=== PATIENT | male | born 1950 | race Caucasian/White ===

== ENCOUNTER 2020-12-04 12:34 | Outpatient (CLI) | payer MEDICARE, SELFPAY ==
--- NOTE | 2020-12-04 13:17 | XRR_ITS ---
PROCEDURE INFORMATION: Exam: XR Bilateral Hips Exam date and time: 12/04/2020 1:17 PM Age: 70 years old Clinical indication: Hip pain; Bilateral; Patient HX: Hips for a couple months; PT states there is more pain when standing TECHNIQUE: Imaging protocol: XR bilateral hips. Views: 2 views of hips with pelvis when performed. COMPARISON: CT abdomen wo con [id number] 09/12/2017 10:13 AM FINDINGS: Bones/joints: No fractures. Negative for osteonecrosis. Unremarkable joint alignment. No significant joint space loss. No osteolytic lesion. Mild sclerosis of the acetabular roof. Soft tissues: Unremarkable. XR/XR hip BI 3-4V wo/w pel [id number] IMPRESSION: 1. 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 2. No acute abnormalities.
--- NOTE | 2020-12-04 13:17 | XRR_ITS ---
PROCEDURE INFORMATION: Exam: XR Lumbosacral Spine Exam date and time: 12/04/2020 1:17 PM Age: 70 years old Clinical indication: Low back pain; Patient HX: Lower back since 83'; Additional info: Lumbar sacral spondylarthritis TECHNIQUE: Imaging protocol: XR of the lumbosacral spine. Views: 2 or 3 views. COMPARISON: CR Lumbar Spine 2-3 views* [id number] 10/29/2016 11:35 AM FINDINGS: Bones/joints: Negative for acute fracture. No changes in vertebral body height from prior. No traumatic malalignment.The lumbar spine demonstrates marked discogenic and apophyseal joint degenerative changes at multiple levels. Slight rightward convex lower lumbar spine curvature stable from comparison. Soft tissues: Unremarkable. XR/XR lumbar spine 2-3V* [id number] IMPRESSION: 1. No acute abnormality. 2. No change from comparison. 3. Severe diffuse spondyloarthropathy.
--- NOTE | 2020-12-04 13:17 | XRR_ITS ---
PROCEDURE INFORMATION: Exam: XR Left Ankle Exam date and time: 12/04/2020 1:17 PM Age: 70 years old Clinical indication: Patient HX: Chronic pain in bilateral ankles for 7 years; Additional info: Acute ankle pain TECHNIQUE: Imaging protocol: XR Left ankle. Views: 3 or more views. COMPARISON: CR Knee 3 views, LEFT* [id number] 08/01/2017 1:53 PM FINDINGS: Bones/joints: No fractures. No joint space malalignment. No lytic bone lesion. Large osseous heel spur. No significant arthritis. Soft tissues: Diffuse soft tissue swelling. XR/XR ankle LT min 3V* [id number] IMPRESSION: No acute osseous abnormality.
--- NOTE | 2020-12-04 13:17 | XRR_ITS ---
PROCEDURE INFORMATION: Exam: XR Right Ankle Exam date and time: 12/04/2020 1:17 PM Age: 70 years old Clinical indication: Pain; Ankle; Bilateral; Additional info: Acute ankle pain TECHNIQUE: Imaging protocol: XR Right ankle. Views: 3 or more views. COMPARISON: No relevant prior studies available. FINDINGS: Bones/joints: No fractures. No joint space malalignment. Moderate sized osseous heel spur. No lytic bone lesion. No significant arthritis. Soft tissues: Diffuse soft tissue swelling. XR/XR ankle RT min 3V* [id number] IMPRESSION: No acute osseous abnormality.
== END 2020-12-04 12:35 | disposition home or self-care (01) ==
PROVIDERS: PCP Family Medicine; Visit Provider Family Medicine
DX: M47.817 Spondylosis without myelopathy or radiculopathy, lumbosacral region (principal); M25.572 Pain in left ankle and joints of left foot; M47.816 Spondylosis without myelopathy or radiculopathy, lumbar region; M25.551 Pain in right hip; M25.552 Pain in left hip
CPT/HCPCS: 72100; 73521; 73522; 73610

== ENCOUNTER → 2021-01-24 13:40 | Outpatient (BNVA) | payer MEDICARE, SELFPAY | PROVIDERS: PCP Family Medicine; Referring Provider Family Medicine; Visit Provider Podiatrist Foot & Ankle Surgery | DX: M19.072 Primary osteoarthritis, left ankle and foot (principal); M79.672 Pain in left foot | CPT/HCPCS: 73630 ==

== ENCOUNTER → 2022-05-28 09:49 | Outpatient (BNVA) | payer MEDICARE, SELFPAY | PROVIDERS: PCP Family Medicine; Visit Provider Internal Medicine Cardiovascular Disease | DX: I48.91 Unspecified atrial fibrillation (principal); I10 Essential (primary) hypertension; Z87.891 Personal history of nicotine dependence; Z79.01 Long term (current) use of anticoagulants | CPT/HCPCS: 93005; 99214; Q3014 ==

== ENCOUNTER 2022-10-16 20:50 | Inpatient (IN) | payer MEDICARE, MEDICAID, SELFPAY ==
[2022-10-16 21:08] VITALS: BP 118/52; PULSE 98; RESP 18; TEMP 36.7; O2SAT 89; BMI 44.6
[2022-10-16 21:13] VITALS: BP 182/67; RESP 18; O2SAT 90
--- NOTE | 2022-10-16 21:29 | CTR_ITS ---
PROCEDURE INFORMATION: Exam: CT Head Without Contrast Exam date and time: 10/16/2022 9:50 PM Age: 72 years old Clinical indication: Injury or trauma; Blunt trauma (contusions or hematomas); Patient HX: Fall with loc. Patient unsure if he struck head. ; Additional info: Fall with positive loss of consciousness TECHNIQUE: Imaging protocol: Computed tomography of the head without contrast. Radiation optimization: All CT scans at this facility use at least one of these dose optimization techniques: automated exposure control; mA and/or kV adjustment per patient size (includes targeted exams where dose is matched to clinical indication); or iterative reconstruction. REPORTING DATA: Count of CT and Cardiac NM exams in prior 12 months: This patient has received 0 known CTs and 0 known cardiac nuclear medicine studies in the 12 months prior to the current study. COMPARISON: No relevant prior studies available. RADIATION DOSE METRICS: Total DLP (mGy-cm): 1328.93 FINDINGS: Brain: There is moderate cortical atrophy. Low-density changes in the white matter are consistent with nonspecific small vessel chronic ischemic change. There is no intracranial mass, hemorrhage or edema. There is a small lipoma in the right side falx Cerebral ventricles: No ventriculomegaly. Paranasal sinuses: Visualized sinuses are unremarkable. No fluid levels. Mastoid air cells: Visualized mastoid air cells are well aerated. Bones/joints: Unremarkable. No acute fracture. Soft tissues: Unremarkable. CT/CT head wo con* [id number] IMPRESSION: No acute intracranial finding
--- NOTE | 2022-10-16 21:29 | CTR_ITS ---
PROCEDURE INFORMATION: Exam: CT Cervical Spine Without Contrast Exam date and time: 10/16/2022 9:52 PM Age: 72 years old Clinical indication: Injury or trauma; Blunt trauma; Prior surgery; Surgery date: 6+ months; Surgery type: Cervical fusion; Patient HX: C/O neck pain post fall at home this evening. ; Additional info: Neck pain after fall with loc TECHNIQUE: Imaging protocol: Computed tomography of the cervical spine without contrast. Radiation optimization: All CT scans at this facility use at least one of these dose optimization techniques: automated exposure control; mA and/or kV adjustment per patient size (includes targeted exams where dose is matched to clinical indication); or iterative reconstruction. REPORTING DATA: Count of CT and Cardiac NM exams in prior 12 months: This patient has received 0 known CTs and 0 known cardiac nuclear medicine studies in the 12 months prior to the current study. COMPARISON: 1. CT head wo con* [id number] 10/16/2022 9:[address] Cervical Spine wo* [id number] 06/30/2014 5:21 PM RADIATION DOSE METRICS: Total DLP (mGy-cm): 449.77 FINDINGS: Bones/joints: There is anterior spinal fusion C4 through C6 with metallic plate and screws into the vertebral bodies which appears intact and well healed. There is narrowing of the C3-C4 and C6-C7 disc spaces with small anterior and posterior osteophytes. No acute fracture is identified. There are degenerative changes in facet joints bilaterally more on the left than on the right. Lungs: Lung apices are normal. Soft tissues: Prevertebral soft tissues are unremarkable. CT/CT cervical spin wo con* [id number] IMPRESSION: 1. Degenerative and postsurgical changes in the cervical spine stable compared with 06/30/2014. 2. No acute fracture.
--- NOTE | 2022-10-16 21:32 | ED_ITS ---
HPI - Fall General: Chief Complaint: Fall Stated Complaint: FALL Time Seen by Provider: 10/16/22 21:09 History of Present Illness: Patient is a 72-year-old male comes to the ED via EMS after fall. Patient has a history of hypertension, hyperlipidemia, BPH, A-fib, anemia, COPD and is not on any oxygen at home. Fall occurred at home and patient is unsure of details of fall. Patient lives at home alone. He is not sure if fall occurred yesterday or earlier today. All he remembers is waking up on the floor. Patient has no idea how long he was laying on the ground unconscious and says it could been anywhere from a few minutes to up to 24 hours. He does not know any details on why he fell, but does note that he felt very brief episode of chest pain a day or 2 ago. Denies any current chest pain. After fall patient was unable to get up and he crawled to her phone and then was able to call for help. After fall he is complaining of bilateral hip pain, low back pain, right rib pain and neck pain. Most of his pain is in his hips and low back and he rates the pain curren tly an 8 out of 10. Denies any numbness tingling or weakness to 1 side of his body or face. Vision change since fall described as fuzzy halo around lights. Associated symptoms-after fall: Reports chest pain (Episode of chest pain 2 days ago) and neck pain; Denies abdominal pain, headache(s) or hematuria Review of Systems Const: Denies: fever(s), chills or fatigue Eyes: Denies: change in vision or eye discomfort ENMT: Denies: throat pain, odynophagia, nasal discharge or nasal congestion Card: Reports: chest pain (Episode of chest pain 2 days ago) and syncope; Denies: palpitations, edema, swelling of feet/ankles, dyspnea on exertion or orthopnea Resp: Denies: dyspnea, productive cough or non-productive cough GI: Denies: abdominal pain, nausea, vomiting, diarrhea, constipation or hematochezia : Denies: flank pain, difficulty urinating, dysuria or hematuria Musc: Reports: neck pain, back pain (Low back pain), extremity pain (Bilateral hip pain) and other (Right rib pain); Denies: extremity swelling Skin/Breast: Denies: rash or new lesions Neuro: Denies: headache(s), numbness in extremities or weakness in extremities PFSH ED PFSH: Medical History Atrial fibrillation CAD (coronary artery disease) Diabetes mellitus History of SC (myocardial infarction) History of TIA (transient ischemic attack) HTN (hypertension) Hypercholesterolemia Surgical History S/P PTCA (percutaneous transluminal coronary angioplasty) Status post left knee replacement Family History Father Stroke Diabetes Hypertension Mother Stroke Hypertension Brother Diabetes Hypertension Sister Diabetes Chronic kidney disease (CKD) Hypertension Social History Smoking and tobacco status: former smoker Physical Exam Const: COMMON NORMALS: patient oriented x3 and alert HENMT: COMMON NORMALS: normocephalic HEAD & SCALP: normocephalic MOUTH: Normal oral and palatal mucosa present THROAT: posterior oropharynx normal and uvula midline Eye: COMMON NORMALS: Equal, round and reactive pupils present and EOMs intact bilaterally PUPIL: Yes Equal, round and reactive pupils present Neck/C-Spine: COMMON NORMALS: supple GENERAL: Yes normal visual inspection CERVICAL SPINE: Yes cervical ROM normal, Yes Cervical spine tenderness C6 and C7 and Yes Paracervical muscle tenderness bilateral Resp: COMMON NORMALS: normal respiratory effort, No retractions, No use of accessory muscles and clear to auscultation bilaterally AUSCULTATION: clear to auscultation bilaterally Cardio: COMMON NORMALS: regular rate, regular rhythm, S1 normal heart sound present, S2 normal heart sound present, No gallops present (Cardio), No clicks present (Cardio), No murmurs present (Cardio) and Peripheral pulses 2+ throughout RATE: regular rate RHYTHM: regular rhythm HEART SOUNDS: S1 normal heart sound present and S2 normal heart sound present PERIPHERAL PULSES: Peripheral pulses 2+ throughout GI: COMMON NORMALS: Normal to inspection, nondistended, normoactive bowel sounds present, Soft to palpation, non-tender and no masses PALPATION: Yes Soft to palpation : COMMON NORMALS: Yes no CVA tenderness BLADDER/KIDNEY EXAM: Yes no CVA tenderness Back/Pelvis: COMMON NORMALS: no CVA tenderness LUMBAR SPINE/LOWER BACK: Yes pain with ROM and Yes paraspinal muscle tenderness Lumbar paraspinal muscle tenderness: bilateral Extremity: COMMON NORMALS: normal to inspection Neuro: COMMON NORMALS: patient oriented x3, CN's II-XII intact bilaterally and moves all extremities SENSORIUM/ORIENTATION: Yes alert SPEECH: speech normal GAIT: Yes Unable to assess gait Skin: GENERAL SKIN EXAM: dry skin Course Reevaluation(s): Reevaluation #1: I went in to check on patient and discussed some of the imaging and lab report findings. I told him about his creatinine level being elevated above 5 and asked him if he has any history of CKD. Patient did state that he has CKD but is not on dialysis. Time: 23:45 Vital Signs: Vital signs: Vital Signs Temperature 98.1 F 10/16/22 21:08 Pulse Rate 81 10/17/22 01:41 Respiratory Rate 21 H 10/17/22 01:41 Blood Pressure 117/80 10/17/22 01:41 Pulse Oximetry 95 10/17/22 01:41 Oxygen Delivery Me thod Nasal Cannula 10/17/22 00:30 Oxygen Flow Rate 3 10/16/22 22:43 MDM - Fall Medical Decision Making Patient is a 72-year-old male comes to the ED via EMS after fall. Patient has a history of hypertension, hyperlipidemia, BPH, A-fib, anemia, CKD, COPD and is not on any oxygen at home. Fall occurred at home and patient is unsure of details of fall. Patient lives at home alone. He is not sure if fall occurred yesterday or earlier today. All he remembers is waking up on the floor. Patient has no idea how long he was laying on the ground unconscious and says it could been anywhere from a few minutes to up to 24 hours. He does not know any details on why he fell, but does note that he felt very brief episode of chest pain a day or 2 ago. Denies any current chest pain. Patient's O2 was in the up per 80s at triage and the rest of vitals are stable. He was put on 3 L of oxygen via nasal cannula and his O2 sat went up into the low to mid 90s. Patient's neuro exam showed no deficits. Rest of exam was benign. CBC unremarkable. Potassium 6.1 and creatinine was 5.7. UA was unremarkable. Tro ponins negative. EKG showed A-fib but no ST segment elevation or depression seen and no T wave changes seen due to hyperkalemia BNP was 2864 and CK was 355. CT of head and CT of cervical spine showed no acute findings. CT of chest abdomen pelvis showed no acute findings as well. I discussed patient case with Dr. Wyatt and he agreed patient needs to be admitted. I contacted the hospitalist Dr. Crain and patient will be admitted to [facility] and nephrology was contacted and given a heads up that they will need to be consulted and managing patient care while in hospital. Lab Data I reviewed the patient's lab results. 10/16/22 21:41 10/16/22 21:41 Radiology Impressions Cervical Spine CT 10/16/22 21:29 IMPRESSION: 1. Degenerative and postsurgical changes in the cervical spine stable compared with 06/30/2014. 2. No acute fracture. Head CT 10/16/22 21:29 IMPRESSION: No acute intracranial finding Chest/Abdomen/Pelvis CT 10/16/22 21:42 IMPRESSION: 1. Mild emphysema 2. No acute findings in the chest 3. Old granulomatous disease 4. 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 No acute findings in the abdomen or pelvis. 2. Bilateral nephrolithiasis 3. Hepatic cysts. Laboratory Results WBC 6.1 10^3/uL (4.0-10.0) 10/16/22 21:41 RBC 3.42 10^6/uL (4.1-5.3) L 10/16/22 21:41 Hgb 11.3 g/dL (11.7-16.6) L 10/16/22 21:41 Hct 36.9 % (42.0-52.0) L 10/16/22 21:41 MCV 107.9 fl (80-94) H 10/16/22 21:41 MCH 33.0 pg (28.0-34.0) 10/16/22 21:41 MCHC 30.6 g/dL (30.0-36.0) 10/16/22 21:41 RDW 15.9 % (12.1-15.1) H 10/16/22 21:41 Plt Count 110 10^3/cmm (130-400) L 10/16/22 21:41 MPV 10.8 fL (7.4-10.4) H 10/16/22 21:41 Neut % (Auto) 79.5 % 10/16/22 21:41 Lymph % (Auto) 8.7 % 10/16/22 21:41 [place] % (Auto) 9.7 % 10/16/22 21:41 Eos % (Auto) 1.3 % 10/16/22 21:41 Baso % (Auto) 0.3 % 10/16/22 21:41 Neut # (Auto) 4.85 10^3/uL (1.8-7.7) 10/16/22 21:41 Lymph # (Auto) 0.5 10^3/uL (0.8-4.8) L 10/16/22 21:41 [place] # (Auto) 0.6 10^3/uL (0.2-0.9) 10/16/22 21:41 Eos # (Auto) 0.1 10^3/uL (0.0-0.8) 10/16/22 21:41 Baso # (Auto) 0.0 10^3/uL (0.0-0.1) 10/16/22 21:41 Nucleated RBC % (auto) 0 % 10/16/22 21:41 Nucleated RBCs # 0.0 /100WBC 10/16/22 21:41 Sodium 143 mmol/L (136-145) 10/16/22 21:41 Potassium 6.1 mmol/L (3.5-5.1) H 10/16/22 21:41 Chloride 115 mmol/L (98-107) H 10/16/22 21:41 Carbon Dioxide 17 mmol/L (22-29) L 10/16/22 21:41 Anion Gap 17.1 (5-19) 10/16/22 21:41 BUN 51 mg/dL (8-23) H 10/16/22 21:41 Creatinine 5.7 mg/dL (0.7-1.2) H* 10/16/22 21:41 GFR Calculation Not Reportable 10/16/22 21:41 Glucose 73 mg/dL (65-115) 10/16/22 21:41 POC Glucose 82 mg/dL (70-110) 10/16/22 22:56 Calculated Osmolality 308 mOsm/kg (285-295) H 10/16/22 21:41 Lactic Acid 0.7 mmol/L (0.5-2.2) 10/16/22 21:41 Calcium 9.1 mg/dL (8.5-10.5) 10/16/22 21:41 Total Bilirubin 0.7 mg/dL (0.15-1.2) 10/16/22 21:41 AST 16 U/L (0-40) 10/16/22 21:41 ALT < 5 U/L (0-41) 10/16/22 21:41 Alkaline Phosphatase 85 U/L (40-130) 10/16/22 21:41 Creatine Kinase 355 U/L (39-308) H* 10/16/22 21:41 CK-MB (CK-2) 4.2 ng/mL (0-10.4) 10/16/22 21:41 CK-MB (CK-2) Rel Index % (0.0-5.3) 10/16/22 21:41 Troponin T Baseline 23 ng/L (0-15) H 10/16/22 21:41 Troponin T 120 Minute 21.11 ng/L (0-15) H 10/16/22 23:17 Delta Troponin T -1.89 ABS# (0-10) L 10/16/22 23:17 NT-Pro-B Natriuret Pep 2864 pg/mL (0-125) H 10/16/22 21:41 Total Protein 6.5 g/dL (6.6-8.7) L 10/16/22 21:41 Albumin 3.7 g/dL (3.5-5.2) 10/16/22 21:41 Globulin 2.8 g/dL (1.3-4.6) 10/16/22 21:41 Urine Color Yellow (Yellow) 10/16/22 21:45 Urine Appearance Clear (CLEAR) 10/16/22 21:45 Urine pH 5 (5-7) 10/16/22 21:45 Ur Specific [place] 1.015 (1.005-1.030) 10/16/22 21:45 Urine Protein Trace (Negative) 10/16/22 21:45 Urine Glucose (UA) Norm (Normal) 10/16/22 21:45 Urine Ketones Negative (Negative) 10/16/22 21:45 Urine Blood 3+ (Negative) H 10/16/22 21:45 Urine Nitrate Negative (Negative) 10/16/22 21:45 Urine Bilirubin Neg (Negative) 10/16/22 21:45 Urine Urobilinogen Norm mg/dL (Negative) 10/16/22 21:45 Ur Leukocyte Esterase Negative (Negative) 10/16/22 21:45 Urine RBC 0-4 /hpf (0-2) H 10/16/22 21:45 Urine WBC 0-4 /hpf (0-5) H 10/16/22 21:45 Ur Squamous Epith Cells 0-4 /hpf (0-5) H 10/16/22 21:45 Amorphous Sediment Not Reportable 10/16/22 21:45 Urine Bacteria Trace /hpf (NONE) 10/16/22 21:45 Hyaline Casts 0-4 /lpf H 10/16/22 21:45 EKG Data EKG 1: EKG interpretation date: 10/16/22 Interpretation: A-fib with rate controlled, 92 bpm, no ST segment elevation or depression seen. No EKG changes seen to T waves due to hyperkalemia Discharge Plan Discharge Patient Disposition: Admitted As Inpatient Admit Provider: Sheyla Crain Clinical Impression: Hyperkalemia, Syncope, JOHN (acute kidney injury), CHF (congestive heart failure) Condition: Stable Coding Level of Care Code ED Link Trainer Teacher for Nicole Golden
--- NOTE | 2022-10-16 21:34 | ECG_ITS ---
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 Measurements Intervals [place] Rate: 92 P: 0 TX: 0 QRS: 49 QRSD: 100 T: 30 QT: 332 QTc: 412 Interpretive Statements ATRIAL FIBRILLATION LOW QRS VOLTAGE IN EXTREMITY LEADS [QRS DEFLECTION < 0.5 mV IN LIMB LEADS] PATTERN CONSISTENT WITH PULMONARY DISEASE Compared to ECG 01/12/2015 15:41:32 Low QRS voltage now present Sinus rhythm no longer present Electronically Signed On 10-16-2022 22:26:06 CDT by Kenia Salguero M.D. [id number]
[2022-10-16 21:40] VITALS: RESP 20
[2022-10-16] MEDS: ondansetron 2 mg/ML SDV 2 mL 4 MG IVP (21:40)
[2022-10-16] MEDS: morphine 4 mg/mL SDV 1 mL IVP (21:40)
--- NOTE | 2022-10-16 21:42 | CTR_ITS ---
PROCEDURE INFORMATION: Exam: CT Chest Without Contrast; Diagnostic Exam date and time: 10/16/2022 10:37 PM Age: 72 years old Clinical indication: Injury or trauma; Generalized; Blunt trauma (contusions or hematomas); Prior surgery; Surgery date: 6+ months; Surgery type: Cervical fusion. Coronary angioplasty; Patient HX: Fall at home with +loc. C/O left rib pain with SOB. Lower back and bilateral hip pain. TECHNIQUE: Imaging protocol: Diagnostic computed tomography of the chest without contrast. Radiation optimization: All CT scans at this facility use at least one of these dose optimization techniques: automated exposure control; mA and/or kV adjustment per patient size (includes targeted exams where dose is matched to clinical indication); or iterative reconstruction. REPORTING DATA: Count of CT and Cardiac NM exams in prior 12 months: This patient has received 0 known CTs and 0 known cardiac nuclear medicine studies in the 12 months prior to the current study. COMPARISON: CT chest wo con [id number] 08/01/2017 1:31 PM RADIATION DOSE METRICS: Total DLP (mGy-cm): 1279.08 FINDINGS: Lungs: There is mild centrilobular emphysema and also paraseptal emphysema mostly at the lung bases posteriorly. No acute infiltrate is identified. There are calcified granulomas in both lungs. Pleural spaces: Unremarkable. No pneumothorax. No pleural effusion. Heart: There is incidental finding of a persistent left superior vena cava which appears to be draining into the left atrium. Heart is within normal limits of size. Coronary arteries: There is no evidence of atherosclerotic coronary artery calcifications. Mediastinal space: There is no evidence of mediastinal fluid, masses, or gas. Lymph nodes: There is no evidence of lymphadenopathy. There are small paratracheal lymph nodes. Vasculature: There is atherosclerotic calcification of the descending thoracic aorta. There is no thoracic aortic aneurysm. Bones/joints: The thoracic spine demonstrates moderate degenerative changes at multiple levels. No acute fracture is identified Soft tissues: Unremarkable. COMMENTS: In the absence of a history or active diagnosis of lung cancer, it is recommended that this patient with emphysema be evaluated for enrollment in a low dose CT lung cancer screening program. PROCEDURE INFORMATION: Exam: CT Abdomen And Pelvis Without Contrast Exam date and time: 10/16/2022 10:37 PM Age: 72 years old Clinical indication: Injury or trauma; Generalized; Blunt trauma (contusions or hematomas); Prior surgery; Surgery date: 6+ months; Surgery type: Cervical fusion. Coronary angioplasty; Patient HX: Fall at home with +loc. C/O left rib pain with SOB. Lower back and bilateral hip pain. TECHNIQUE: Imaging protocol: Computed tomography of the abdomen and pelvis without contrast. Radiation optimization: All CT scans at this facility use at least one of these dose optimization techniques: automated exposure control; mA and/or kV adjustment per patient size (includes targeted exams where dose is matched to clinical indication); or iterative reconstruction. REPORTING DATA: Count of CT and Cardiac NM exams in prior 12 months: This patient has received 0 known CTs and 0 known cardiac nuclear medicine studies in the 12 months prior to the current study. COMPARISON: CT abdomen wo con [id number] 09/12/2017 10:13 AM RADIATION DOSE METRICS: Total DLP (mGy-cm): 1279.08 FINDINGS: Liver: There are numerous hypodense lesions throughout the liver which have the appearance of benign simple cysts. These are larger and more numerous than on 09/12/2017. Gallbladder and bile ducts: Normal. No calcified stones. No ductal dilation. Pancreas: The pancreas is normal. Spleen: The spleen is normal. Adrenal glands: The adrenal glands are normal. Kidneys and ureters: There are multiple bilateral renal collecting system calcifications. There is a 3 cm sized benign-appearing simple cyst mid right kidney, larger than on 09/12/2017 when it measured 2 cm. There is no evidence of hydronephrosis. There is no stone along the course of either ureter. Stomach and bowel: There is no evidence of colitis/diverticulitis. Appendix: A normal appendix is identified. Intraperitoneal space: There is no evidence of free intraperitoneal fluid. Vasculature: The aorta demonstrates mild atherosclerotic calcification. There is no evidence of an abdominal aortic aneurysm. The celiac artery and superior mesenteric artery arise from a common trunk. Lymph nodes: There is no evidence of lymphadenopathy. Urinary bladder: There are 2 small bladder diverticuli from the right side of the urinary bladder. Reproductive: Unremarkable as visualized. Bones/joints: The lumbar spine demonstrates marked degenerative changes at multiple levels. Soft tissues: Unremarkable. CT/[place] [id number] IMPRESSION: 1. Mild emphysema 2. No acute findings in the chest 3. Old granulomatous disease 4. 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 No acute findings in the abdomen or pelvis. 2. Bilateral nephrolithiasis 3. Hepatic cysts.
[2022-10-16 21:47] LABS: Basophils % 0.3 %; Eosinophils # 0.1 10^3/uL (0.0-0.8); Eosinophils % 1.3 %; Hematocrit 36.9 % (42.0-52.0); Hemoglobin 11.3 g/dL (11.7-16.6); Lymphocytes # 0.5 10^3/uL (0.8-4.8); Lymphocytes % 8.7 %; Mean Corpuscular HGB Conc 30.6 g/dL (30.0-36.0); Mean Corpuscular Volume 107.9 fl (80-94); Mean Platelet Volume 10.8 fL (7.4-10.4); Monocytes # 0.6 10^3/uL (0.2-0.9); Monocytes % 9.7 %; Neutrophils # 4.85 10^3/uL (1.8-7.7); Neutrophils % 79.5 %; Nucleated Red Blood Cells % 0 %; Platelet Count 110 10^3/cmm (130-400); Red Blood Count 3.42 10^6/uL (4.1-5.3); Red Cell Distribution Width 15.9 % (12.1-15.1); White Blood Count 6.1 10^3/uL (4.0-10.0)
[2022-10-16 22:10] LABS: Troponin(5th) Baseline 23 ng/L (0-15)
[2022-10-16 22:17] LABS: Alanine Aminotransferase < 5 U/L (0-41); Albumin Level 3.7 g/dL (3.5-5.2); Alkaline Phosphatase 85 U/L (40-130); Anion Gap 17.1 (5-19); Aspartate Amino Transferase 16 U/L (0-40); Blood Urea Nitrogen 51 mg/dL (8-23); Calcium 9.1 mg/dL (8.5-10.5); Carbon Dioxide 17 mmol/L (22-29); Chloride 115 mmol/L (98-107); Globulin 2.8 g/dL (1.3-4.6); Glucose 73 mg/dL (65-115); NT Pro B Type Natriuretic Pept 2864 pg/mL (0-125); Osmolality Calculated 308 mOsm/kg (285-295); Potassium 6.1 mmol/L (3.5-5.1); Sodium 143 mmol/L (136-145); Total Bilirubin 0.7 mg/dL (0.15-1.2); Total Protein 6.5 g/dL (6.6-8.7)
[2022-10-16 22:26] LABS: Add Urine Microscopic? YES; Bilirubin Urine Neg (Negative); Blood Urine 3+ (Negative); Glucose Urine UA Norm (Normal); Ketones Urine Negative (Negative); Leukocyte Esterase Urine Negative (Negative); Nitrate Urine Negative (Negative); Protein Urine Trace (Negative); RBC Urine 0-4 /hpf (0-2); Specific Gravity, Urine 1.015 (1.005-1.030); Urine Appearance Clear (CLEAR); Urine Color Yellow (Yellow); Urobilinogen Urine Norm (Negative); WBC Urine 0-4 /hpf (0-5); pH Urine 5 (5-7)
[2022-10-16 22:27] LABS: Add Urine Culture? No; Bacteria Urine TRACE /hpf; Hyaline Casts Urine 0-4 /lpf; Squamous Epithelial Cell Urine 0-4 /hpf (0-5)
[2022-10-16 22:34] LABS: Creatine Phosphokinase 355 U/L (39-308)
[2022-10-16 22:43] VITALS: BP 118/59; PULSE 102; RESP 22; O2SAT 93
[2022-10-16 22:58] LABS: Lactic Sepsis W/Reflex 0.7 mmol/L (0.5-2.2)
[2022-10-16 23:00] LABS: Glucose Point of Care 82 mg/dL (70-110)
[2022-10-16] MEDS: insulin regular-human 100 units/1 mL 10 UNIT IVP (23:30)
--- NOTE | 2022-10-16 23:31 | ECG_ITS ---
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 Measurements Intervals [place] Rate: 101 P: 0 TN: 0 QRS: 69 QRSD: 102 T: 29 QT: 344 QTc: 447 Interpretive Statements ATRIAL FIBRILLATION WITH RAPID VENTRICULAR RESPONSE LOW QRS VOLTAGE IN EXTREMITY LEADS [QRS DEFLECTION < 0.5 mV IN LIMB LEADS] ABNORMAL RHYTHM ECG Compared to ECG 10/16/2022 21:34:54 No significant changes Electronically Signed On 10-17-2022 21:28:29 CDT by Blanche Mejia M.D. [id number]
[2022-10-16 23:45] LABS: Troponin 5 2HR 21.11 ng/L (0-15)
[2022-10-16 23:53] LABS: Troponin 5 2HR Delta -1.89 ABS# (0-10)
[2022-10-17] VITALS (19 sets, daily range): BP systolic 96–120; BP diastolic 56–81; PULSE 67–130; RESP 16–21; TEMP 36.6–36.9; O2SAT 91–97
[2022-10-17 00:20] LABS: CKMB 4.2 ng/mL (0-10.4)
[2022-10-17 00:33] LABS: Glucose Point of Care 86 mg/dL (70-110)
--- NOTE | 2022-10-17 01:06 | PM.HP ---
Providers/Chief Complaint Admitting Physician: Sheyla Crain MD Primary Care Provider: TWYLA BETANCOURT MD Chief Complaint: FALL History of Present Illness Floyd Spring is a 72 year old male with history of hypertension hyperlipidemia, BPH, A-fib, type 2 diabetes mellitus, history of MN, TIA, anemia, COPD not on any oxygen at home who presented to the hospital today for complaint of fall. He is not sure of the details as he found himself on the floor. He lives alone at home. He is not sure if the fall happened yesterday or today as he found himself today on the floor and remembers waking up on the floor. He does not know how he ended up there or how long he was on the ground unconscious. He states that he does remember that he had some chest pain a day or 2 ago but at this time does not have any. Once he was conscious he was able to crawl to the phone and call EMS for help. On arrival to ER today complaint of bilateral hip pain low back pain, right rib pain and neck pain. Pain was rated 8 out of 10. Patient is a poor historian and says I do not know to most questions asked.. CT cervical spine was done which showed degenerative postsurgical changes and cervical spine stable, no acute fracture. 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 Labs significant for WBC 6.1 hemoglobin 11.3, platelet 110, sodium 143, potassium 6.1, chloride 115, bicarb 17, BUN 51, anion gap 17.1, creatinine 5.7 lactic acid 0.7. Baseline troponin 23 creatinine kinase 355, delta troponin -1.8, BNP 2864. At this time patient requiring 2 L nasal cannula. UA shows 3+ blood 0-4 RBCs, trace bacteria. Patient does still make urine. He is not on dialysis at this time. In the ER he was given an amp of D50 and insulin to treat for the hyperkalemia. Medications/Allergies Home Medications Medication Instructions Recorded Confirmed Last Taken Type isosorbide mononitrate 30 mg 30 mg PO DAILY #90 tabs 09/22/19 05/29/21 Unknown Rx tablet,extended release 24 hr amlodipine 5 mg tablet 5 mg PO DAILY 01/24/21 05/29/21 Unknown History atorvastatin 20 mg tablet 20 mg PO DAILY 01/24/21 05/29/21 Unknown History finasteride 5 mg tablet 5 mg PO DAILY 01/24/21 05/29/21 Unknown History hydrocodone 10 mg-acetaminophen 1 tab PO BID PRN 01/24/21 05/29/21 Unknown History 325 mg tablet omeprazole magnesium 20 mg 20 mg PO DAILY 01/24/21 05/29/21 Unknown History capsule,delayed release (Acid Emergency Veterinary Assistant (omeprazole)) pregabalin 225 mg capsule 225 mg PO DAILY 01/24/21 05/29/21 Unknown History tamsulosin 0.4 mg capsule 0.4 mg PO DAILY 01/24/21 05/29/21 Unknown History calcium citrate 1,000 mg tablet 1,000 mg PO DAILY 05/28/22 Unknown History dulaglutide 0.75 mg/0.5 mL 0.75 mg SUBCUT .weekly 05/28/22 Unknown History subcutaneous pen injector (Trulicity) furosemide 20 mg tablet 20 mg PO DAILY PRN 05/28/22 Unknown History irbesartan 300 1 tab PO DAILY 05/28/22 Unknown History mg-hydrochlorothiazide 25 mg tablet nitroglycerin 0.4 mg sublingual 0.4 mg sublingual Q5M PRN chest 05/28/22 05/28/22 Unknown Rx tablet pain #30 tabs potassium chloride 10 mEq 10 meq PO DAILY PRN 05/28/22 Unknown History capsule,extended release rivaroxaban 20 mg tablet (Xarelto) 20 mg PO DAILY #90 tabs 05/28/22 05/28/22 Unknown Rx vitamin B complex (B 1 tab PO DAILY PRN 05/28/22 Unknown History Complex-Vitamin B12 tablet) Allergies Allergy/AdvReac Type Severity Reaction Status Date / Time No Known Allergies Allergy Verified 10/17/22 00:12 PFSH Acute PFSH: Medical History Atrial fibrillation CAD (coronary artery disease) Diabetes mellitus History of MN (myocardial infarction) History of TIA (transient ischemic attack) HTN (hypertension) Hypercholesterolemia Surgical History S/P PTCA (percutaneous transluminal coronary angioplasty) Status post left knee replacement Family History Father Stroke Diabetes Hypertension Mother Stroke Hypertension Brother Diabetes Hypertension Sister Diabetes Chronic kidney disease (CKD) Hypertension Social History Smoking and tobacco status: former smoker Vitals/I&O/Wt Last Vital Signs Temp 98.1 F 10/16/22 21:08 Pulse 81 10/17/22 01:41 Resp 21 H 10/17/22 01:41 BP 117/80 10/17/22 01:41 Pulse Ox 95 10/17/22 01:41 O2 Del Method Nasal Cannula 10/17/22 00:30 O2 Flow Rate 3 10/16/22 22:43 10/16/22 10/16/22 10/17/22 14:59 22:59 06:59 Intake Total 50 / 50 Balance 50 / 50 Weight last 48 hrs Weight 129.274 kg Physical Exam Narrative: General: Alert oriented x3, patient seen laying in bed, patient appears dehydrated HEENT: Normocephalic, atraumatic, EOMI, breathing 2 L nasal cannula. Cardio: Regular rate rhythm, normal S1-S2 Respiratory: Mainly clear to auscultation with diminished at bases, mild expiratory wheezes anterior lung maya. GI: Abdomen soft, nontender, bowel sounds + Behavior: Appropriate and cooperative Extremities: Trace edema bilateral lower extremities Data 10/16/22 21:41 10/16/22 21:41 A&P Assessment and plan (1) Hyperkalemia: (2) Syncope: Qualifiers: Syncope type: unspecified Qualified Code(s): R55 - Syncope and collapse (3) JOHN (acute kidney injury): (4) CHF (congestive heart failure): (5) CAD (coronary artery disease): (6) Atrial fibrillation: (7) Diabetes mellitus: (8) HTN (hypertension): (9) Hypercholesterolemia: (10) Diabetic peripheral neuropathy: Plan #Fall, unsure if mechanical in nature, etiology unknown #JOHN on CKD, stage V kidney disease, creatinine 5.7 today. #Hyperkalemia #Atrial fibrillation, rate controlled #Hypertension #Hyperlipidemia #COPD/centrilobular emphysema #BPH #History of TIA, history of MN #Type 2 diabetes mellitus, [id number] ? Patient hyperkalemic on admission 6.1. Given D50 amp and insulin 10 units ? Still makes urine. ? Requiring 2 L nasal cannula oxygen at this time, no oxygen dependency at home ? We will place on cardiac telemetry to rule out occult arrhythmia. Consider event monitor at discharge ? Check cardiac echo ? Atrial fibrillation currently rate controlled. Continue home medications ? Follow troponins 6-hour pending at this time. First 2 troponins delta Trope -1.89 ? EKG did not show heart block or acute ischemic changes at this time ? We will order morphine 2 mg IV every 4 hours for pain ? We will place on gentle hydration 75 cc normal saline per hour ? Mild elevation in CPK 355. We will recheck in AM. ? BNP elevated at 2864 most likely secondary to stage V kidney disease. ? Consult nephrology for possible initiation of dialysis ? Continue atorvastatin, finasteride, omeprazole, ? Hold tamsulosin at this time. Check orthostatic vitals ? Blood pressure is soft at this time 96/65. We will hold blood pressure medications for now. ? Continue Xarelto 20 daily with food ? Check CBC, BMP in a.m. ? Check phosphorus level ? We will start patient on sodium bicarbonate ? Placed on fall precautions ? PT/OT prior to discharge ? Hold home antihyperglycemic agents. Placed on low-dose intensity sliding scale ACHS Full code DVT prophylaxis SCDs, heparin SQ twice daily Attestations Medical Necessity Statement*: Greater than 2 midnight stay for management of fall, JOHN on CKD stage V Coding Level of Care Code G0426 (50 min) TH Encounter Time (min): 55 Patient seen via Telehealth in the acute care setting (hospital or ED location) by agreement and consent of patient or patient patient accounting representative. Telehealth technology used during the visit includes video and audio. This patient encounter is appropriate and reasonable under the circumstances given the patient?s particular presentation at this time. The patient has been advised of the potential risks and limitations of this mode of treatment (including but not limited to the absence of in-person examination at this time) and has agreed to be treated by an off-site physician for this visit. If deemed clinically necessary from this telehealth visit, or if condition or consent for telehealth visit changes, an in-person visit will be arranged. For this encounter, total time for the origination of telehealth care on this date is as shown. Diagnoses Hyperkalemia E87.5 Syncope R55 Syncope type: unspecified JOHN (acute kidney injury) N17.9 CHF (congestive heart failure) I50.9 CAD (coronary artery disease) I25.10 Atrial fibrillation I48.91 Diabetes mellitus E11.9 HTN (hypertension) I10 Hypercholesterolemia E78.00 Diabetic peripheral neuropathy E11.42
--- NOTE | 2022-10-17 02:02 | PC.NURSE ---
Patient does not have home medication list with him. Patient's pharmacy will need to be called in AM to verify home medications.
--- NOTE | 2022-10-17 02:15 | USCV_ITS ---
Floyd Spring Age: 72 Gender: M : 1950 Exam Date: 10/17/2022 02:44 Ordering Phys: Sheyla Crain MD Technologist: VALENTINO Exam Location: [facility] [place] Indication: CHF, history of HTN, HL, BPH, AFIB, ANEMIA, COPD. No history of cardiac intervention per patient. BP: 117 / 80 HR: 87 Rhythm: Atrial fibrillation Technical Quality: Adequate MEASUREMENTS (Male / Female) Normal Values 2D ECHO LV Diastolic Diameter PLAX 4.7 cm 4.2 - 5.9 / 3.9 - 5.3 cm LV Systolic Diameter PLAX 3.1 cm IVS Diastolic Thickness 1.6 cm 0.6 - 1.0 / 0.6 - 0.9 cm IVS Systolic Thickness 2.0 cm LVPW Diastolic Thickness 1.4 cm 0.6 - 1.0 / 0.6 - 0.9 cm LVPW Systolic Thickness 2.0 cm LVOT Diameter 2.2 cm LV Ejection Fraction 2D Teich 62.1 % LV Ejection Fraction MOD 2C 67.3 % LV Ejection Fraction 2C AL 68.9 % LA Diameter 5.2 cm LA Width 5.9 cm LA Height 7.3 cm RA Width 3.7 cm RA Height 6.4 cm Aorta at Sinotubular Diameter 3.3 cm IVC Diameter 1.8 cm M-MODE Aortic Annulus Diameter 3.5 cm LA Ao Ratio MM 1.5 MV E Point Septal Separation 0.4 cm DOPPLER AV Peak Velocity 149.0 cm/s LVOT Peak Velocity 103.0 cm/s AV Area Cont Eq vti 2.6 cm squared AV Area Cont Eq pk 2.7 cm squared MV Peak Velocity 131.0 cm/s MV Area PHT 2.4 cm squared MV E' Velocity 65.5 cm/s Mitral E to MV E' Ratio 9.4 Mitral E to LV E' Lateral Ratio 8.3 Mitral E to LV E' Septal Ratio 10.9 TR Peak Velocity 306.5 cm/s TR Peak Gradient 37.6 mmHg TV Peak E Velocity 56.0 cm/s Right Atrial Pressure 10.0 mmHg Pulmonary Artery Systolic Pressu 47.6 mmHg PV Peak Velocity 115.0 cm/s RV Acceleration Time 0.1 s RV Ejection Time 0.4 s RV AcT/ET 0.3 FINDINGS Left Ventricle Normal left ventricular size, systolic function and wall thickness, with no regional wall motion abnormalities. Left ventricular ejection fraction is estimated at 60 %. Rhythm precludes evaluation of diastolic function. Right Ventricle Normal right ventricular size and systolic function. Right ventricular systolic pressure 44 mmHg. Right Atrium Normal right atrial size. Left Atrium Mildly increased left atrial size. Mitral Valve Structurally normal mitral valve. No mitral valve stenosis. No mitral valve regurgitation. Aortic Valve Structurally normal trileaflet aortic valve. No aortic valve stenosis. No aortic valve regurgitation. Tricuspid Valve Structurally normal tricuspid valve. Trace tricuspid valve regurgitation. Pulmonic Valve Structurally normal pulmonic valve. No pulmonary valve stenosis. Trace pulmonary valve regurgitation. Pericardium No pericardial effusion. Aorta Normal size aortic root and proximal ascending aorta. IVC Normal IVC dimension with >50% respiratory change of the inferior vena cava. CONCLUSIONS 1. Normal left ventricular size, systolic function and wall thickness, with no regional wall motion abnormalities. Left ventricular ejection fraction is estimated at 60 %. 2. Normal right ventricular size and systolic function. 3. No significant change when compared to study dated 05/12/2017. Blanche Mejia MD (Electronically Signed) Final Date: 17 Oct 2022 12:25 S
--- NOTE | 2022-10-17 02:18 | PC.NURSE ---
Patient states when he fell his legs just went out and he felt shaky. Patient states, I don't know why I fell.
--- NOTE | 2022-10-17 03:31 | ECG_ITS ---
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 Measurements Intervals [place] Rate: 91 P: 0 CO: 0 QRS: -18 QRSD: 112 T: 33 QT: 359 QTc: 442 Interpretive Statements ATRIAL FIBRILLATION LOW QRS VOLTAGE IN PRECORDIAL LEADS [QRS DEFLECTION < 1.0 mV IN CHEST LEADS] POSSIBLE ANTERIOR MYOCARDIAL INFARCTION , PROBABLY OLD [30 ms Q WAVE IN V3/V4, OR R < 0.2 mV IN V4] ABNORMAL RHYTHM ECG Compared to ECG 10/16/2022 23:35:04 Myocardial infarct finding now present Electronically Signed On 10-17-2022 21:27:32 CDT by Blanche Mejia M.D. [id number]
[2022-10-17] MEDS: sodium chloride 0.9% 1,000 ML 75 ML IV ×2 (03:37→23:20)
[2022-10-17 04:11] LABS: Magnesium 1.9 mg/dL (1.7-2.3)
[2022-10-17 04:12] LABS: Troponin 5 6HR 21.91 ng/L (0-15)
[2022-10-17 04:13] LABS: Troponin 5 6HR Delta -1.09 ng/L (0-12)
[2022-10-17 04:20] LABS: Procalcitonin 0.45 ng/mL (0-0.5)
[2022-10-17 04:22] LABS: Anion Gap 14.1 (5-19); Blood Urea Nitrogen 50 mg/dL (8-23); Calcium 9.1 mg/dL (8.5-10.5); Carbon Dioxide 19 mmol/L (22-29); Chloride 117 mmol/L (98-107); Glucose 73 mg/dL (65-115); Osmolality Calculated 310 mOsm/kg (285-295); Potassium 6.1 mmol/L (3.5-5.1); Sodium 144 mmol/L (136-145)
[2022-10-17] MEDS: calcium gluconate 0.1 gm/mL 10% SDV 10mL 1 GM IVP ×2 (05:21→12:13)
--- NOTE | 2022-10-17 08:11 | USCV_ITS ---
Floyd Spring Age: 72 Gender: M : 1950 Exam Date: 10/17/2022 09:03 Ordering Phys: Scot Colby MD Technologist: LUPE [place] [facility] [place]: COLLAPSED Risk Factors: Previous Vascular Surgery: Right Brachial BP: / Left Brachial BP: / Right Left Velocity (cm/s) Spectral Plaque Velocity (cm/s) Spectral Plaque Syst/Diast Broadening Syst/Diast Broadening 58.20/ 18.10 Prox CCA 82.00 / 15.40 74.30/ 25.00 Mid CCA 97.40 / 20.50 82.00/ 23.90 Distal CCA 96.60 / 22.20 114.40/25.00 Prox ICA 90.40 / 25.40 139.30/56.50 Mid ICA 152.30/ 43.50 98.10/ 30.90 Distal ICA 125.80/ 38.80 156.40 ECA 119.10 1.70 ICA/CCA 1.56 Antegrade Vertebral Antegrade 49.70/ 9.60 cm/s 79.40/ 27.60 cm/s Tri Subclavian Tri 144.6 146.0 0 0 CONCLUSIONS Right ICA stenosis <50%. Mild atheromatous plaque right carotid bulb/ICA. Left ICA stenosis <50%. Mild atheromatous plaque left carotid bulb/ICA. Normal antegrade Doppler flow noted in the right vertebral artery. Normal antegrade Doppler flow noted in the left vertebral artery. Nathaniel Donovan MD (Electronically Signed) Final Date: 17 Oct 2022 17:36 S
[2022-10-17 08:19] LABS: Platelet Count 104 10^3/cmm (130-400)
[2022-10-17] MEDS: budesonide 0.5 mg/2 mL Neb INHALATION (08:32)
[2022-10-17] MEDS: ipratropium-albuterol 3 mL Neb INHALATION ×4 (08:32→20:29)
[2022-10-17 08:38] LABS: Alcohol Level < 10 mg/dL (0-10)
[2022-10-17] MEDS: finasteride 5 mg Tablet PO (09:22)
[2022-10-17] MEDS: atorvastatin 40 mg Tablet PO (09:22)
[2022-10-17] MEDS: sodium bicarbonate 650 mg Tablet PO ×3 (09:22→21:13)
[2022-10-17] MEDS: pantoprazole DR 40 mg Tablet PO (09:22)
[2022-10-17 09:25] LABS: Anion Gap 16.3 (5-19); Blood Urea Nitrogen 49 mg/dL (8-23); Calcium 8.7 mg/dL (8.5-10.5); Carbon Dioxide 19 mmol/L (22-29); Chloride 115 mmol/L (98-107); Glucose 82 mg/dL (65-115); Osmolality Calculated 310 mOsm/kg (285-295); Potassium 6.3 mmol/L (3.5-5.1); Sodium 144 mmol/L (136-145)
[2022-10-17 09:35] LABS: Estmated Average Glucose 85; Hemoglobin A1C 4.6 % (4.0-6.0)
[2022-10-17] MEDS: heparin drip 25,000 UNIT/500 ML PREMIX 34 UNIT IV (10:42)
[2022-10-17 11:08] LABS: Partial Thromboplastin Time 34.6 SECONDS (23.9-36.7)
--- NOTE | 2022-10-17 12:09 | PM.CONSULT ---
Providers/Reason For Consult Consulting Physician/Specialty*: Janine Del Cid DO, telenephrology Reason for Consult*: Hyperkalemia Attending Physician: Scot Colby MD Primary Care Provider: TWYLA BETANCOURT MD History of Present Illness History of Present Illness Floyd Spring is a 72 year old male admitted after a fall at home. States he has not had blood work done in > 1 year. 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 Does not check BS at home. Not sure if he has diabetes. Was not taking furosemide or KCL at home. Denies use of NSAIDs 2 sisters with ESRD Review of Systems Narrative: denies chest pain, + chronic dyspnea was incontinent of urine after fall, but not prior + chronic knee pain Medications/Allergies Home Medications Medication Instructions Recorded Confirmed Last Taken Type isosorbide mononitrate 30 mg 30 mg PO DAILY #90 tabs 09/22/19 10/17/22 Unknown Rx tablet,extended release 24 hr amlodipine 5 mg tablet 5 mg PO DAILY 01/24/21 10/17/22 Unknown History atorvastatin 20 mg tablet 20 mg PO DAILY 01/24/21 10/17/22 Unknown History finasteride 5 mg tablet 5 mg PO DAILY 01/24/21 10/17/22 Unknown History hydrocodone 10 mg-acetaminophen 1 tab PO BID PRN pain 01/24/21 10/17/22 Unknown History 325 mg tablet omeprazole magnesium 20 mg 20 mg PO DAILY 01/24/21 10/17/22 Unknown History capsule,delayed release (Acid Glove Parts Cutter (omeprazole)) tamsulosin 0.4 mg capsule 0.4 mg PO DAILY 01/24/21 10/17/22 Unknown History calcium citrate 1,000 mg tablet 1,000 mg PO DAILY 05/28/22 10/17/22 Unknown History dulaglutide 0.75 mg/0.5 mL 0.75 mg SUBCUT .weekly 05/28/22 10/17/22 Unknown History subcutaneous pen injector (Trulicity) furosemide 20 mg tablet 20 mg PO DAILY PRN Edema 05/28/22 10/17/22 Unknown History nitroglycerin 0.4 mg sublingual 0.4 mg sublingual Q5M PRN chest 05/28/22 10/17/22 Unknown Rx tablet pain #30 tabs potassium chloride 10 mEq 10 meq PO DAILY 05/28/22 10/17/22 Unknown History capsule,extended release rivaroxaban 20 mg tablet (Xarelto) 20 mg PO DAILY #90 tabs 05/28/22 10/17/22 Unknown Rx vitamin B complex (B 1 tab PO DAILY 05/28/22 10/17/22 Unknown History Complex-Vitamin B12 tablet) irbesartan 300 mg tablet 300 mg PO DAILY 10/17/22 10/17/22 Unknown History Allergies Allergy/AdvReac Type Severity Reaction Status Date / Time No Known Allergies Allergy Verified 10/17/22 00:12 Current Medications Generic Name Dose Route Start Last Admin Trade Name Freq PRN Reason Stop Dose Admin Albuterol/Ipratropium 3 ml 10/17/22 08:00 10/17/22 11:41 Ipratropium-Albuterol 3 Ml Neb INHALATION Not Given QID.RESPIRATORY MEME Atorvastatin Calcium 40 mg 10/17/22 09:00 10/17/22 09:22 Atorvastatin 40 Mg Tablet PO 40 mg DAILY MEME Administration Budesonide 0.5 mg 10/17/22 08:00 10/17/22 08:32 Budesonide 0.5 Mg/2 Ml Neb INHALATION 0.5 mg DAILY.RESPIRATORY MEME Administration Finasteride 5 mg 10/17/22 09:00 10/17/22 09:22 Finasteride 5 Mg Tablet PO 5 mg DAILY MEME Administration Sodium Chloride 1,000 mls @ 75 mls/hr 10/17/22 02:15 10/17/22 03:37 Sodium Chloride 0.9% IV 75 mls/hr .[id number] MEME Administration Heparin Sodium/Sodium Chloride 25,000 unit in 500 mls @ 0 mls/hr 10/17/22 08:15 10/17/22 10:42 Heparin Drip IV 14.58 unit/kg/hr .Q0M MEME 34 mls/hr Administration Protocol Per Protocol Pantoprazole Sodium 40 mg 10/17/22 09:00 10/17/22 09:[address] 40 Mg Tablet PO 40 mg DAILY MEME Administration Sodium Bicarbonate 650 mg 10/17/22 09:00 10/17/22 09:22 Sodium Bicarbonate 650 Mg Tablet PO 650 mg TID MEME Administration PFSH Acute PFSH: Medical History Atrial fibrillation CAD (coronary artery disease) Diabetes mellitus History of CA (myocardial infarction) History of TIA (transient ischemic attack) HTN (hypertension) Hypercholesterolemia Surgical History S/P PTCA (percutaneous transluminal coronary angioplasty) Status post left knee replacement Family History Father Stroke Diabetes Hypertension Mother Stroke Hypertension Brother Diabetes Hypertension Sister Diabetes Chronic kidney disease (CKD) Hypertension Social History Smoking and tobacco status: former smoker Vitals/I&O/Wt Last Vital Signs Temp 98 F 10/17/22 11:44 Pulse 69 10/17/22 11:44 Resp 19 H 10/17/22 11:44 BP 108/72 10/17/22 11:44 Pulse Ox 92 10/17/22 11:44 O2 Del Method Nasal Cannula 10/17/22 11:44 O2 Flow Rate 3 10/17/22 11:38 FiO2 3 10/17/22 03:05 10/16/22 10/17/22 10/17/22 22:59 06:59 14:59 Intake Total 50 / 50 100 / 100 Output Total 600 / 600 Balance -550 / -550 100 / 100 Weight last 48 hrs Weight 116.573 kg Weight 129.274 kg Physical Exam Const: COMMON NORMALS: no acute distress Extremity: GENERAL: Yes edema (1+ legs) Urinary Catheter Management: Andrade: Cath Placed During This Visit: yes Reason for Continuing Indwelling Catheter: Other Urinary Catheter Date of Insertion: 10/17/22 Urinary Catheter Time of Insertion: 02:48 Data 10/17/22 03:35 10/17/22 08:55 Other Labs: CK 355, urinalysis trace protein, 3+ blood, 0-4 RBC/HPF CT Abd/Pel: Radiologist's impression: CT no contraast Adrenal glands: The adrenal glands are normal. Kidneys and ureters: There are multiple bilateral renal collecting system calcifications. There is a 3 cm sized benign-appearing simple cyst mid right kidney, larger than on 09/12/2017 when it measured 2 cm. There is noevidence of hydronephrosis. There is no stone along the course of either ureter. Other data: seen via telemedicine with assistance of RN at bedside A&P Assessment and plan (1) Hyperkalemia: Plan 1. Hyperkalemia, was taking ARB as outpatient 2. Metabolic acidosis 3. Acute kidney injury, Chronic kidney disease. Was orthostatic on admission. Serum creatinine better today. Baseline renal function not known. 4. History of hypertension, now low BP. Hold antihypertensives until BP higher. Recommend: agree with d/c ARB, gentle IVF hydration, kayexylate, oral sodium bicarbonate. Try to get last outpatient lab results. Discussed indications for dialysis. Consult Attestations Medical Necessity Statement: see above Time Spent in Patient Care: 16 - 35 minutes Coding Level of Care Code Acute Code for [facility] Fwd Diagnoses Hyperkalemia E87.5
[2022-10-17] MEDS: insulin regular-human 10 UNIT in SYRINGE 1 EACH IVP (12:12)
[2022-10-17] MEDS: sodium polystyrene sulfonate 15 gm/60 mL Btl PO ×2 (12:13→17:33)
[2022-10-17 15:48] LABS: Amphetamines Screen Urine Negative (Negative); Barbiturates Screen Urine Negative (Negative); Benzodiazepines Screen Urine Negative (Negative); Cocaine Screen Urine Negative (Negative); Opiate Screen Urine Positive (Negative); PCP Screen Urine Negative (Negative); THC Screen Urine Negative (Negative)
[2022-10-17 16:15] LABS: Potassium 6.3 mmol/L (3.5-5.1)
--- NOTE | 2022-10-17 16:26 | PM.PN ---
Subjective Subjective: patient was seen this morning, he does not know how he passed out, no fever, no chills, no illness, has been feeling well, no chest pian Vitals/I&O/Wt Last Vital Signs Temp 98.5 F 10/17/22 15:34 Pulse 80 10/17/22 15:34 Resp 20 H 10/17/22 15:34 BP 117/81 10/17/22 15:34 Pulse Ox 95 10/17/22 15:34 O2 Del Method Nasal Cannula 10/17/22 15:34 O2 Flow Rate 3 10/17/22 15:31 FiO2 3 10/17/22 03:05 10/17/22 10/17/22 10/17/22 06:59 14:59 22:59 Intake Total 50 / 50 632.1 / 632.1 Output Total 600 / 600 Balance -550 / -550 632.1 / 632.1 Weight last 48 hrs Weight 116.573 kg Weight 129.274 kg Physical Exam Const: COMMON NORMALS: no acute distress and patient oriented x3 Resp: COMMON NORMALS: normal respiratory effort, No retractions, No use of accessory muscles and clear to auscultation bilaterally AUSCULTATION: clear to auscultation bilaterally Cardio: COMMON NORMALS: regular rate, regular rhythm, S1 normal heart sound present and S2 normal heart sound present RATE: regular rate RHYTHM: regular rhythm HEART SOUNDS: S1 normal heart sound present and S2 normal heart sound present GI: COMMON NORMALS: Normal to inspection, nondistended, normoactive bowel sounds present and non-tender Extremity: COMMON NORMALS: no pedal edema Neuro: COMMON NORMALS: patient oriented x3 Psych: COMMON NORMALS: mental status grossly normal Urinary Catheter Management: Andrade: Cath Placed During This Visit: yes Reason for Continuing Indwelling Catheter: Other Urinary Catheter Date of Insertion: 10/17/22 Urinary Catheter Time of Insertion: 02:48 Data 10/17/22 03:35 10/17/22 15:40 A&P Assessment and plan (1) Hyperkalemia: (2) Syncope: Qualifiers: Syncope type: unspecified Qualified Code(s): R55 - Syncope and collapse (3) JOHN (acute kidney injury): (4) CHF (congestive heart failure): (5) CAD (coronary artery disease): (6) Atrial fibrillation: (7) Diabetes mellitus: (8) HTN (hypertension): (9) Hypercholesterolemia: (10) Diabetic peripheral neuropathy: (11) Syncope and collapse: Plan #Fall, unsure if mechanical in nature, etiology unknown #JOHN on CKD, stage V kidney disease, creatinine 5.7 today. #Hyperkalemia #Atrial fibrillation, rate controlled #Hypertension #Hyperlipidemia #COPD/centrilobular emphysema #BPH #History of TIA, history of [place] #Type 2 diabetes mellitus, [id number] #syncope and collapse ? recurrent hyperkalemiam, will repeat Given D50 amp and insulin 10 units and calcium gluconate and kayxelate, repeat potassium ? Still makes urine. ? Requiring 2 L nasal cannula oxygen at this time, no oxygen dependency at home ? We will place on cardiac telemetry to rule out occult arrhythmia. Consider event monitor at discharge ? cardiac echo ? Atrial fibrillation currently rate controlled. Continue home medications ? carotid ultrasound -follow telemetery, ? EKG did not show heart block or acute ischemic changes at this time ? We will order morphine 2 mg IV every 4 hours for pain ? We will place on gentle hydration 75 cc normal saline per hour ? Mild elevation in CPK 355. ? BNP elevated at 2864 most likely secondary to stage V kidney disease. ? Consult nephrology ? hold atorvastatin, resume finasteride, omeprazole, ? Hold tamsulosin at this time. Check orthostatic vitals ? orthostats positive, ? hold xarelto due to john, switch to heparin drip ? Check CBC, BMP in a.m. ? We will start patient on sodium bicarbonate ? Placed on fall precautions ? PT/OT prior to discharge ? Hold home antihyperglycemic agents. Placed on low-dose intensity sliding scale ACHS Full code DVT prophylaxis SCDs, heparin drip Attestations Medical Necessity Statement*: patient needs hospitalization for john, syncope and collapse Diagnoses Hyperkalemia E87.5 Syncope R55 Syncope type: unspecified JOHN (acute kidney injury) N17.9 CHF (congestive heart failure) I50.9 CAD (coronary artery disease) I25.10 Atrial fibrillation I48.91 Diabetes mellitus E11.9 HTN (hypertension) I10 Hypercholesterolemia E78.00 Diabetic peripheral neuropathy E11.42 Syncope and collapse R55
[2022-10-17 17:07] LABS: Partial Thromboplastin Time 134.5 SECONDS (23.9-36.7)
[2022-10-18] VITALS (14 sets, daily range): BP systolic 103–131; BP diastolic 65–79; PULSE 66–99; RESP 16–18; TEMP 36.3–36.7; O2SAT 90–96
[2022-10-18] MEDS: heparin drip 25,000 UNIT/500 ML PREMIX 20 UNIT IV (05:24)
[2022-10-18 07:34] LABS: Basophils % 0.5 %; Eosinophils # 0.1 10^3/uL (0.0-0.8); Eosinophils % 1.8 %; Hematocrit 38.1 % (42.0-52.0); Hemoglobin 11.3 g/dL (11.7-16.6); Lymphocytes # 0.5 10^3/uL (0.8-4.8); Lymphocytes % 13.6 %; Mean Corpuscular HGB Conc 29.7 g/dL (30.0-36.0); Mean Corpuscular Hemoglobin 33.1 pg (28.0-34.0); Mean Corpuscular Volume 111.7 fl (80-94); Mean Platelet Volume 10.8 fL (7.4-10.4); Monocytes # 0.4 10^3/uL (0.2-0.9); Monocytes % 9.5 %; Neutrophils # 2.95 10^3/uL (1.8-7.7); Neutrophils % 74.1 %; Nucleated Red Blood Cells % 0 %; Platelet Count 116 10^3/cmm (130-400); Red Blood Count 3.41 10^6/uL (4.1-5.3); Red Cell Distribution Width 15.6 % (12.1-15.1)
[2022-10-18 07:45] LABS: Partial Thromboplastin Time 54.8 SECONDS (23.9-36.7)
[2022-10-18 07:53] LABS: Anion Gap 16.3 (5-19); Blood Urea Nitrogen 42 mg/dL (8-23); Calcium 8.6 mg/dL (8.5-10.5); Carbon Dioxide 19 mmol/L (22-29); Chloride 117 mmol/L (98-107); Glucose 89 mg/dL (65-115); Osmolality Calculated 314 mOsm/kg (285-295); Phosphorus 4.2 mg/dL (2.5-4.5); Potassium 5.3 mmol/L (3.5-5.1); Sodium 147 mmol/L (136-145)
[2022-10-18] MEDS: budesonide 0.5 mg/2 mL Neb INHALATION (07:55)
[2022-10-18] MEDS: ipratropium-albuterol 3 mL Neb INHALATION ×3 (07:55→20:50)
[2022-10-18 07:57] LABS: Creatine Phosphokinase 257 U/L (39-308)
[2022-10-18] MEDS: atorvastatin 40 mg Tablet PO (08:33)
[2022-10-18] MEDS: pantoprazole DR 40 mg Tablet PO (08:33)
[2022-10-18] MEDS: finasteride 5 mg Tablet PO (08:33)
[2022-10-18] MEDS: sodium bicarbonate 650 mg Tablet PO ×3 (08:33→20:45)
[2022-10-18] MEDS: morphine 4 mg/mL SDV 1 mL 2 MG IVP ×2 (08:53→20:52)
--- NOTE | 2022-10-18 11:34 | P.PN_ITS ---
Subjective Subjective: Patient was seen this morning, denies any chest pain, palpitations, no shortness of breath, no flank pain, no lightheadedness, no dizziness Vitals/I&O/Wt Last Vital Signs Temp 98 F 10/18/22 11:24 Pulse 72 10/18/22 11:24 Resp 18 10/18/22 11:24 BP 114/74 10/18/22 11:24 Pulse Ox 96 10/18/22 11:24 O2 Del Method Nasal Cannula 10/18/22 10:56 O2 Flow Rate 2 10/18/22 10:56 FiO2 3 10/17/22 03:05 10/17/22 10/18/22 10/18/22 22:59 06:59 14:59 Intake Total 1711.2 / 2343.3 268.80 / 2612.10 262 / 262 Output Total 1350 / 1350 Balance 1711.2 / 2343.3 -1081.20 / 1262.10 262 / 262 Weight last 48 hrs Weight 116.573 kg Weight 129.274 kg Physical Exam Const: COMMON NORMALS: no acute distress and patient oriented x3 Resp: COMMON NORMALS: normal respiratory effort, No retractions, No use of accessory muscles and clear to auscultation bilaterally AUSCULTATION: clear to auscultation bilaterally Cardio: COMMON NORMALS: regular rate, regular rhythm, S1 normal heart sound present and S2 normal heart sound present RATE: regular rate RHYTHM: re gular rhythm HEART SOUNDS: S1 normal heart sound present and S2 normal heart sound present GI: COMMON NORMALS: Normal to inspection, nondistended, normoactive bowel sounds present and non-tender Extremity: COMMON NORMALS: no pedal edema Neuro: COMMON NORMALS: patient oriented x3 Psych: COMMON NORMALS: mental status grossly normal Urinary Catheter Management: Andrade: Cath Placed During This Visit: yes Reason for Continuing Indwelling Catheter: Other Urinary Catheter Date of Insertion: 10/17/22 Urinary Catheter Time of Insertion: 02:48 Data 10/18/22 07:19 10/18/22 07:19 A&P Assessment and plan (1) Hyperkalemia: (2) Syncope: Qualifiers: Syncope type: unspecified Qualified Code(s): R55 - Syncope and collapse (3) JOHN (acute kidney injury): (4) CHF (congestive heart failure): (5) CAD (coronary artery disease): (6) Atrial fibrillation: (7) Diabetes mellitus: (8) HTN (hypertension): (9) Hypercholesterolemia: (10) Diabetic peripheral neuropathy: (11) Syncope and collapse: (12) Rhabdomyolysis: Plan #Fall, unsure if mechanical in nature, etiology unknown #JOHN on CKD, stage V kidney disease, creatinine 5.7 today. #Hyperkalemia #Atrial fibrillation, rate controlled #Hypertension #Hyperlipidemia #COPD/centrilobular emphysema #BPH #History of TIA, history of [place] #Type 2 diabetes mellitus, [id number] #syncope and collapse ? recurrent hyperkalemia, improving, 5.3, monitor ? Still makes urine. ? Requiring 2 L nasal cannula oxygen at this time, no oxygen dependency at home ? We will place on cardiac telemetry to rule out occult arrhythmia. Consider event monitor at discharge ? cardiac echo no acute findings ? Atrial fibrillation currently rate controlled. Continue home medications ? carotid ultrasound no acute findings -follow telemetery, ? EKG did not show heart block or acute ischemic changes at this time ? We will order morphine 2 mg IV every 4 hours for pain ? We will place on gentle hydration 100 cc normal saline per hour ? Mild elevation in CPK 355. ? BNP elevated at 2864 most likely secondary to stage V kidney disease. ? Consult nephrology ? hold atorvastatin, resume finasteride, omeprazole, ? Hold tamsulosin at this time. Check orthostatic vitals ? orthostats positive, ? hold xarelto due to john, switch to heparin drip ?Continue sodium bicarbonate ? Placed on fall precautions ? PT/OT prior to discharge ? Hold home antihyperglycemic agents. Placed on low-dose intensity sliding scale ACHS Full code DVT prophylaxis SCDs, heparin drip Plan for today continue antibiotic therapy, up out of bed, monitor kidney function, monitor urine output, Attestations Medical Necessity Statement*: Patient requires hospitalization due to JOHN, rhabdomyolysis, syncopal episode Diagnoses Hyperkalemia E87.5 Syncope R55 Syncope type: unspecified JOHN (acute kidney injury) N17.9 CHF (congestive heart failure) I50.9 CAD (coronary artery disease) I25.10 Atrial fibrillation I48.91 Diabetes mellitus E11.9 HTN (hypertension) I10 Hypercholesterolemia E78.00 Diabetic peripheral neuropathy E11.42 Syncope and collapse R55 Rhabdomyolysis M62.82
[2022-10-18] MEDS: sodium chloride 0.9% 1,000 ML 75 ML IV (12:44)
--- NOTE | 2022-10-18 13:00 | PM.PN ---
Subjective Subjective: no complaints out of bed in chair. Reports no BM since admission and no BM for couple days prior Vitals/I&O/Wt Last Vital Signs Temp 98 F 10/18/22 11:24 Pulse 72 10/18/22 11:24 Resp 18 10/18/22 11:24 BP 114/74 10/18/22 11:24 Pulse Ox 96 10/18/22 11:24 O2 Del Method Nasal Cannula 10/18/22 10:56 O2 Flow Rate 2 10/18/22 10:56 FiO2 3 10/17/22 03:05 10/17/22 10/18/22 10/18/22 22:59 06:59 14:59 Intake Total 1711.2 / 2343.3 268.80 / 2612.10 1262 / 1262 Output Total 1350 / 1350 Balance 1711.2 / 2343.3 -1081.20 / 1262.10 1262 / 1262 Weight last 48 hrs Weight 116.573 kg Weight 129.274 kg Physical Exam Const: COMMON NORMALS: no acute distress Urinary Catheter Management: Andrade: Cath Placed During This Visit: yes Reason for Continuing Indwelling Catheter: Other Urinary Catheter Date of Insertion: 10/17/22 Urinary Catheter Time of Insertion: 02:48 Data 10/18/22 07:19 10/18/22 07:19 Other Labs: calcium 8.6, phos 4.2, CK 257 Other data: seen via telemedicine with assistance of RN at bedside A&P Assessment and plan (1) Hyperkalemia: Plan 1. Hyperkalemia, resolved, continue to hold ARB 2. Metabolic acidosis, continue NaHCO3 3. Acute kidney injury, Chronic kidney disease. Was orthostatic on admission. Serum creatinine continues to improve. Baseline renal function not known. Floyd says he had stage 3 CKD 4. Hypernatremia, due to IVF and kayexylate, sodium bicarbonte.Discontinue IVF 5. History of hypertension, now low BP. Hold antihypertensives until BP higher. 6. Constipation: give laxative. Voiding trial tomorrow Attestations Medical Necessity Statement*: see above Time Spent in Patient Care: 16 - 35 minutes Coding Level of Care Code Acute Code for [facility] Diagnoses Hyperkalemia E87.5
[2022-10-18 15:51] LABS: Partial Thromboplastin Time 40.6 SECONDS (23.9-36.7)
[2022-10-18] MEDS: polyethylene glycol 3350 Pkt 17 gm PO (17:39)
[2022-10-18 23:08] LABS: Partial Thromboplastin Time 77.4 SECONDS (23.9-36.7)
[2022-10-19] VITALS (12 sets, daily range): BP systolic 120–142; BP diastolic 68–84; PULSE 70–91; RESP 16–18; TEMP 36.4–36.8; O2SAT 90–99
[2022-10-19] MEDS: heparin drip 25,000 UNIT/500 ML PREMIX 25 UNIT IV (02:18)
[2022-10-19 06:17] LABS: Basophils % 0.7 %; Eosinophils # 0.1 10^3/uL (0.0-0.8); Eosinophils % 2.3 %; Hematocrit 35.6 % (42.0-52.0); Hemoglobin 10.8 g/dL (11.7-16.6); Lymphocytes # 0.7 10^3/uL (0.8-4.8); Lymphocytes % 21.6 %; Mean Corpuscular HGB Conc 30.3 g/dL (30.0-36.0); Mean Corpuscular Hemoglobin 32.2 pg (28.0-34.0); Mean Corpuscular Volume 106.3 fl (80-94); Mean Platelet Volume 11.7 fL (7.4-10.4); Monocytes # 0.3 10^3/uL (0.2-0.9); Monocytes % 9.5 %; Neutrophils % 65.2 %; Nucleated Red Blood Cells % 0 %; Platelet Count 106 10^3/cmm (130-400); Red Blood Count 3.35 10^6/uL (4.1-5.3); Red Cell Distribution Width 15.2 % (12.1-15.1); White Blood Count 3.1 10^3/uL (4.0-10.0)
--- NOTE | 2022-10-19 06:27 | PM.PN ---
Subjective Subjective: no new complaints reports large BM yesterday Vitals/I&O/Wt Last Vital Signs Temp 97.6 F 10/19/22 03:55 Pulse 88 10/19/22 03:55 Resp 18 10/19/22 03:55 BP 142/68 10/19/22 03:55 Pulse Ox 92 10/19/22 03:55 O2 Del Method Room Air 10/19/22 03:55 O2 Flow Rate 2 10/18/22 10:56 FiO2 3 10/17/22 03:05 10/18/22 10/18/22 10/19/22 14:59 22:59 06:59 Intake Total 1722 / 1722 611.68 / 2333.68 91.667 / 2425.347 Output Total 1350 / 1350 1000 / 2350 Balance 1722 / 1722 -738.32 / 983.68 -908.333 / 75.347 Physical Exam Const: COMMON NORMALS: no acute distress Urinary Catheter Management: Andrade: Cath Placed During This Visit: yes Reason for Continuing Indwelling Catheter: Other Urinary Catheter Date of Insertion: 10/17/22 Urinary Catheter Time of Insertion: 02:48 Data 10/19/22 04:30 10/19/22 07:34 Other Labs: Mg 1.3, phos 2.4 Other data: seen via telemedicine with assistance of RN at bedside A&P Assessment and plan (1) Hyperkalemia: Plan 1. Hyperkalemia, resolved, continue to hold ARB 2. Metabolic acidosis, resolved, discontinue NaHCO3 3. Acute kidney injury, Chronic kidney disease. Serum creatinine continues to improve. Baseline renal function not known. Floyd says he had stage 3 CKD 4. Hypernatremia, improved, due to IVF and kayexylate, sodium bicarbonate. Discontinue sodium bicarbonate 5. Hypertension 6. Constipation: resolved Rec: Voiding trial. Increase water intake Attestations Medical Necessity Statement*: see above Time Spent in Patient Care: 16 - 35 minutes Coding Level of Care Code Acute Code for [facility] Diagnoses Hyperkalemia E87.5
[2022-10-19 06:33] LABS: Partial Thromboplastin Time 58.4 SECONDS (23.9-36.7)
[2022-10-19] MEDS: ipratropium-albuterol 3 mL Neb INHALATION ×2 (08:05→11:41)
[2022-10-19] MEDS: budesonide 0.5 mg/2 mL Neb INHALATION (08:05)
[2022-10-19 08:25] LABS: Alanine Aminotransferase 8 U/L (0-41); Albumin Level 3.4 g/dL (3.5-5.2); Alkaline Phosphatase 74 U/L (40-130); Anion Gap 12.4 (5-19); Aspartate Amino Transferase 14 U/L (0-40); Blood Urea Nitrogen 29 mg/dL (8-23); Calcium 8.4 mg/dL (8.5-10.5); Carbon Dioxide 21 mmol/L (22-29); Chloride 117 mmol/L (98-107); Globulin 2.8 g/dL (1.3-4.6); Glucose 90 mg/dL (65-115); Magnesium 1.3 mg/dL (1.7-2.3); Osmolality Calculated 307 mOsm/kg (285-295); Phosphorus 2.4 mg/dL (2.5-4.5); Potassium 4.4 mmol/L (3.5-5.1); Sodium 146 mmol/L (136-145); Total Bilirubin 0.6 mg/dL (0.15-1.2); Total Protein 6.2 g/dL (6.6-8.7)
[2022-10-19] MEDS: atorvastatin 40 mg Tablet PO (08:59)
[2022-10-19] MEDS: pantoprazole DR 40 mg Tablet PO (08:59)
[2022-10-19] MEDS: sodium bicarbonate 650 mg Tablet PO (08:59)
[2022-10-19] MEDS: finasteride 5 mg Tablet PO (08:59)
[2022-10-19] MEDS: magnesium sulfate premix 2 GM/50 ML PIGGYBACK IV (11:02)
[2022-10-19] MEDS: rivaroxaban 10 mg Tablet 15 MG PO (11:03)
[2022-10-19] MEDS: HYDROcodone-acetaminophen 10-325 mg Tablet 1 TAB PO ×2 (12:10→20:12)
--- NOTE | 2022-10-19 13:09 | PM.PN ---
Subjective Subjective: Patient was seen this morning, sitting up in a chair, he feels a lot better, no nausea, no vomiting, no chest pain, no shortness of breath, Vitals/I&O/Wt Last Vital Signs Temp 97.6 F 10/19/22 03:55 Pulse 84 10/19/22 11:46 Resp 18 10/19/22 11:41 BP 142/68 10/19/22 03:55 Pulse Ox 90 10/19/22 11:41 O2 Del Method Room Air 10/19/22 11:41 O2 Flow Rate 2 10/18/22 10:56 FiO2 3 10/17/22 03:05 10/18/22 10/19/22 10/19/22 22:59 06:59 14:59 Intake Total 611.68 / 2333.68 91.667 / 2425.347 616.22 / 616.22 Output Total 1350 / 1350 1000 / 2350 Balance -738.32 / 983.68 -908.333 / 75.347 616.22 / 616.22 Physical Exam Const: COMMON NORMALS: no acute distress and patient oriented x3 Resp: COMMON NORMALS: normal respiratory effort, No retractions, No use of accessory muscles and clear to auscultation bilaterally AUSCULTATION: clear to auscultation bilaterally Cardio: COMMON NORMALS: regular rate, regular rhythm, S1 normal heart sound present and S2 normal heart sound present RATE: regular rate RHYTHM: regular rhythm HEART SOUNDS: S1 normal heart sound present and S2 normal heart sound present GI: COMMON NORMALS: Normal to inspection, nondistended, normoactive bowel sounds present and non-tender Extremity: COMMON NORMALS: no pedal edema Neuro: COMMON NORMALS: patient oriented x3 Psych: COMMON NORMALS: mental status grossly normal Urinary Catheter Management: Andrade: Cath Placed During This Visit: yes, but has since been removed by the nurse Reason for Continuing Indwelling Catheter: Other Urinary Catheter Date of Insertion: 10/17/22 Urinary Catheter Time of Insertion: 02:48 Date Urinary Catheter Removed: 10/19/22 Time Urinary Catheter Discontinued: 11:00 Data 10/19/22 04:30 10/19/22 07:34 A&P Assessment and plan (1) Hyperkalemia: (2) Syncope: Qualifiers: Syncope type: unspecified Qualified Code(s): R55 - Syncope and collapse (3) JOHN (acute kidney injury): (4) CHF (congestive heart failure): (5) CAD (coronary artery disease): (6) Atrial fibrillation: (7) Diabetes mellitus: (8) HTN (hypertension): (9) Hypercholesterolemia: (10) Diabetic peripheral neuropathy: (11) Syncope and collapse: (12) Rhabdomyolysis: Plan #Fall, unsure if mechanical in nature, etiology unknown #JOHN on CKD, stage V kidney disease, creatinine 5.7 today. #Hyperkalemia #Atrial fibrillation, rate controlled #Hypertension #Hyperlipidemia #COPD/centrilobular emphysema #BPH #History of TIA, history of [place] #Type 2 diabetes mellitus, [id number] #syncope and collapse ? recurrent hyperkalemia, resolved ? Still makes urine. ? Requiring 2 L nasal cannula oxygen at this time, no oxygen dependency at home ? We will place on cardiac telemetry to rule out occult arrhythmia. Consider event monitor at discharge ? cardiac echo no acute findings ? Atrial fibrillation currently rate controlled. Continue home medications ? carotid ultrasound no acute findings -follow telemetery, ? EKG did not show heart block or acute ischemic changes at this time ? We will order morphine 2 mg IV every 4 hours for pain ? I have a full stopped ? Mild elevation in CPK 355. ? BNP elevated at 2864 most likely secondary to stage V kidney disease. ? Consult nephrology ? hold atorvastatin, resume finasteride, omeprazole, ? Hold tamsulosin at this time. Check orthostatic vitals ? orthostats positive, ? Stop drip switch to Xarelto ?Continue sodium bicarbonate ? Placed on fall precautions ? PT/OT prior to discharge ? Hold home antihyperglycemic agents. Placed on low-dose intensity sliding scale ACHS -Replace magnesium, 2 g magnesium -For syncope and collapse likely will likely need an event monitor on discharge Full code DVT prophylaxis SCDs, Xarelto Plan for today switch to Xarelto, up out of bed, stopped fluids, replace magnesium Attestations Medical Necessity Statement*: Patient requires hospitalization for fall, JOHN, hypomagnesemia, atrial fibrillation, syncope and collapse Diagnoses Hyperkalemia E87.5 Syncope R55 Syncope type: unspecified JOHN (acute kidney injury) N17.9 CHF (congestive heart failure) I50.9 CAD (coronary artery disease) I25.10 Atrial fibrillation I48.91 Diabetes mellitus E11.9 HTN (hypertension) I10 Hypercholesterolemia E78.00 Diabetic peripheral neuropathy E11.42 Syncope and collapse R55 Rhabdomyolysis M62.82
[2022-10-20] VITALS (12 sets, daily range): BP systolic 127–158; BP diastolic 79–92; PULSE 65–78; RESP 16–18; TEMP 36.4–36.6; O2SAT 90–95
[2022-10-20] MEDS: HYDROcodone-acetaminophen 10-325 mg Tablet 1 TAB PO ×4 (02:21→20:37)
[2022-10-20 05:38] LABS: Basophils % 0.6 %; Eosinophils # 0.1 10^3/uL (0.0-0.8); Eosinophils % 2.6 %; Hematocrit 32.5 % (42.0-52.0); Hemoglobin 10.1 g/dL (11.7-16.6); Lymphocytes # 0.7 10^3/uL (0.8-4.8); Lymphocytes % 23.3 %; Mean Corpuscular HGB Conc 31.1 g/dL (30.0-36.0); Mean Corpuscular Volume 102.8 fl (80-94); Mean Platelet Volume 10.9 fL (7.4-10.4); Monocytes # 0.4 10^3/uL (0.2-0.9); Monocytes % 11.3 %; Neutrophils % 61.6 %; Nucleated Red Blood Cells % 0 %; Platelet Count 107 10^3/cmm (130-400); Red Blood Count 3.16 10^6/uL (4.1-5.3); Red Cell Distribution Width 15.1 % (12.1-15.1); White Blood Count 3.1 10^3/uL (4.0-10.0)
[2022-10-20 06:04] LABS: Alanine Aminotransferase 7 U/L (0-41); Albumin Level 3.3 g/dL (3.5-5.2); Alkaline Phosphatase 64 U/L (40-130); Anion Gap 13.7 (5-19); Aspartate Amino Transferase 14 U/L (0-40); Blood Urea Nitrogen 21 mg/dL (8-23); Calcium 8.8 mg/dL (8.5-10.5); Carbon Dioxide 20 mmol/L (22-29); Chloride 116 mmol/L (98-107); Globulin 2.7 g/dL (1.3-4.6); Glucose 90 mg/dL (65-115); Magnesium 1.5 mg/dL (1.7-2.3); Osmolality Calculated 305 mOsm/kg (285-295); Phosphorus 2.4 mg/dL (2.5-4.5); Potassium 3.7 mmol/L (3.5-5.1); Sodium 146 mmol/L (136-145); Total Bilirubin 0.6 mg/dL (0.15-1.2)
--- NOTE | 2022-10-20 07:42 | PC.SOCIAL ---
IMM Update pg 2 of IMM updated and reviewed w/ patient. Copy provided and Copy dated, initialed and placed in chart.
--- NOTE | 2022-10-20 07:50 | PM.PN ---
Subjective Subjective: feeling better, no trouble urinating since del cid removed planning to be discharged to rehab on Friday Vitals/I&O/Wt Last Vital Signs Temp 97.7 F 10/20/22 04:00 Pulse 70 10/20/22 06:00 Resp 18 10/20/22 04:00 BP 137/86 10/20/22 04:00 Pulse Ox 90 10/20/22 04:00 O2 Del Method Room Air 10/19/22 19:42 O2 Flow Rate 2 10/18/22 10:56 FiO2 3 10/17/22 03:05 10/19/22 10/20/22 10/20/22 22:59 06:59 14:59 Intake Total 360 / 1216.22 Output Total 300 / 300 500 / 800 Balance 60 / 916.22 -500 / 416.22 Physical Exam Const: COMMON NORMALS: no acute distress and alert Neuro: SENSORIUM/ORIENTATION: Yes alert Urinary Catheter Management: Del Cid: Cath Placed During This Visit: yes, but has since been removed by the nurse Reason for Continuing Indwelling Catheter: Other Urinary Catheter Date of Insertion: 10/17/22 Urinary Catheter Time of Insertion: 02:48 Date Urinary Catheter Removed: 10/19/22 Time Urinary Catheter Discontinued: 11:00 Data 10/20/22 04:50 10/20/22 04:50 Other Labs: phos 2.4, Mg 1.5 Other data: seen via telemedicine with assistance of RN at bedside A&P Assessment and plan (1) Hyperkalemia: Plan 1. Acute kidney injury, Chronic kidney disease. Serum creatinine continues to improve. Baseline renal function not known. Floyd says he had stage 3 CKD 2. Hyperkalemia, resolved 3. Metabolic acidosis, possible RTA. Observe for now 4. Hypernatremia, increase water intake 5. Hypertension. Can resume ARB 6. Anemia. check iron studies Attestations Medical Necessity Statement*: per primary service Time Spent in Patient Care: 16 - 35 minutes Coding Level of Care Code Acute Code for [facility] Diagnoses Hyperkalemia E87.5
[2022-10-20] MEDS: rivaroxaban 10 mg Tablet 15 MG PO (08:32)
[2022-10-20] MEDS: pantoprazole DR 40 mg Tablet PO (08:32)
[2022-10-20] MEDS: atorvastatin 40 mg Tablet PO (08:32)
[2022-10-20] MEDS: finasteride 5 mg Tablet PO (08:32)
[2022-10-20] MEDS: sodium chloride 0.45% 1,000 ML 40 ML IV (14:45)
--- NOTE | 2022-10-20 15:21 | PM.PN ---
Subjective Subjective: Patient reports a rash on bilateral shins, that is pruritic, but-that has been well, no fevers, chills Vitals/I&O/Wt Last Vital Signs Temp 97.8 F 10/20/22 12:00 Pulse 74 10/20/22 12:00 Resp 17 10/20/22 12:00 BP 127/85 10/20/22 12:00 Pulse Ox 91 10/20/22 12:00 O2 Del Method Room Air 10/20/22 12:00 O2 Flow Rate 2 10/18/22 10:56 FiO2 3 10/17/22 03:05 10/20/22 10/20/22 10/20/22 06:59 14:59 22:59 Intake Total 240 / 240 Output Total 500 / 800 750 / 750 Balance -500 / 416.22 -510 / -510 Physical Exam Const: COMMON NORMALS: no acute distress and patient oriented x3 Resp: COMMON NORMALS: normal respiratory effort, No retractions, No use of accessory muscles and clear to auscultation bilaterally AUSCULTATION: clear to auscultation bilaterally Cardio: COMMON NORMALS: regular rate, regular rhythm, S1 normal heart sound present and S2 normal heart sound present RATE: regular rate RHYTHM: regular rhythm HEART SOUNDS: S1 normal heart sound present and S2 normal heart sound present GI: COMMON NORMALS: Normal to inspection, nondistended, normoactive bowel sounds present, Soft to palpation and non-tender PALPATION: Yes Soft to palpation Extremity: COMMON NORMALS: no pedal edema Neuro: COMMON NORMALS: patient oriented x3 Psych: COMMON NORMALS: mental status grossly normal Skin: NARRATIVE SKIN EXAM: Maculopapular rash bilateral shins, with erythema, confluent, Urinary Catheter Management: Andrade: Cath Placed During This Visit: yes, but has since been removed by the nurse Reason for Continuing Indwelling Catheter: Other Urinary Catheter Date of Insertion: 10/17/22 Urinary Catheter Time of Insertion: 02:48 Date Urinary Catheter Removed: 10/19/22 Time Urinary Catheter Discontinued: 11:00 Data 10/20/22 04:50 10/20/22 04:50 A&P Assessment and plan (1) Hyperkalemia: (2) Syncope: Qualifiers: Syncope type: unspecified Qualified Code(s): R55 - Syncope and collapse (3) JOHN (acute kidney injury): (4) CHF (congestive heart failure): (5) CAD (coronary artery disease): (6) Atrial fibrillation: (7) Diabetes mellitus: (8) HTN (hypertension): (9) Hypercholesterolemia: (10) Diabetic peripheral neuropathy: (11) Syncope and collapse: (12) Rhabdomyolysis: Plan #Fall, unsure if mechanical in nature, etiology unknown #JOHN on CKD, stage V kidney disease, creatinine 5.7 today. #Hyperkalemia #Atrial fibrillation, rate controlled #Hypertension #Hyperlipidemia #COPD/centrilobular emphysema #BPH #History of TIA, history of [place] #Type 2 diabetes mellitus, [id number]-[id number] #syncope and collapse ? recurrent hyperkalemia, resolved ? Still makes urine. ? Requiring 2 L nasal cannula oxygen at this time, no oxygen dependency at home ? We will place on cardiac telemetry to rule out occult arrhythmia. Consider event monitor at discharge ? cardiac echo no acute findings ? Atrial fibrillation currently rate controlled. Continue home medications ? carotid ultrasound no acute findings -follow telemetery, ? EKG did not show heart block or acute ischemic changes at this time -He takes hydrocodone at home we will renew ? BNP elevated at 2864 most likely secondary to stage V kidney disease. ? Consult nephrology ? hold atorvastatin, resume finasteride, omeprazole, ? Hold tamsulosin at this time. Check orthostatic vitals ? orthostats positive, ? Currently on Xarelto ?Continue sodium bicarbonate ? Placed on fall precautions ? PT/OT prior to discharge ? Hold home antihyperglycemic agents. Placed on low-dose intensity sliding scale ACHS -Replace magnesium, 2 g magnesium -For syncope and collapse likely will likely need an event monitor on discharge Full code DVT prophylaxis SCDs, Xarelto Plan for today hydrocortisone cream for rash, monitor creatinine 2.2, does have CKD, serum sodium 146, hemoglobin is 10.1, iron studies ordered by nephrology Attestations Medical Necessity Statement*: Patient requires hospitalization, for JOHN, will be placed to a halfway facility on Friday Diagnoses Hyperkalemia E87.5 Syncope R55 Syncope type: unspecified JOHN (acute kidney injury) N17.9 CHF (congestive heart failure) I50.9 CAD (coronary artery disease) I25.10 Atrial fibrillation I48.91 Diabetes mellitus E11.9 HTN (hypertension) I10 Hypercholesterolemia E78.00 Diabetic peripheral neuropathy E11.42 Syncope and collapse R55 Rhabdomyolysis M62.82
[2022-10-20] MEDS: morphine 4 mg/mL SDV 1 mL 1 MG IVP (18:15)
[2022-10-20] MEDS: ondansetron 2 mg/ML SDV 2 mL 4 MG IVP (18:25)
[2022-10-20] MEDS: hydrocortisone 1% cream 28 gm 1 APPLIC TOPICAL (20:36)
[2022-10-21] VITALS (9 sets, daily range): BP systolic 137–166; BP diastolic 76–92; PULSE 64–92; RESP 16–18; TEMP 36.1–36.7; O2SAT 90–92
[2022-10-21] MEDS: hydrocortisone 1% cream 28 gm 1 APPLIC TOPICAL ×2 (03:39→08:11)
[2022-10-21] MEDS: HYDROcodone-acetaminophen 10-325 mg Tablet 1 TAB PO ×5 (03:39→23:26)
[2022-10-21] MEDS: ondansetron 2 mg/ML SDV 2 mL 4 MG IVP ×3 (03:39→23:26)
[2022-10-21 05:21] LABS: Basophils % 0.8 %; Eosinophils # 0.1 10^3/uL (0.0-0.8); Eosinophils % 3.4 %; Hematocrit 36.2 % (42.0-52.0); Hemoglobin 11.4 g/dL (11.7-16.6); Lymphocytes # 0.6 10^3/uL (0.8-4.8); Lymphocytes % 14.8 %; Mean Corpuscular HGB Conc 31.5 g/dL (30.0-36.0); Mean Corpuscular Hemoglobin 32.2 pg (28.0-34.0); Mean Corpuscular Volume 102.3 fl (80-94); Mean Platelet Volume 10.7 fL (7.4-10.4); Monocytes # 0.4 10^3/uL (0.2-0.9); Monocytes % 9.8 %; Neutrophils # 2.68 10^3/uL (1.8-7.7); Neutrophils % 70.9 %; Nucleated Red Blood Cells % 0 %; Platelet Count 104 10^3/cmm (130-400); Red Blood Count 3.54 10^6/uL (4.1-5.3); White Blood Count 3.8 10^3/uL (4.0-10.0)
[2022-10-21 05:41] LABS: Alanine Aminotransferase 8 U/L (0-41); Albumin Level 3.6 g/dL (3.5-5.2); Alkaline Phosphatase 73 U/L (40-130); Anion Gap 13.8 (5-19); Aspartate Amino Transferase 14 U/L (0-40); Blood Urea Nitrogen 15 mg/dL (8-23); Calcium 8.3 mg/dL (8.5-10.5); Carbon Dioxide 22 mmol/L (22-29); Chloride 114 mmol/L (98-107); Globulin 2.8 g/dL (1.3-4.6); Glucose 91 mg/dL (65-115); Magnesium 1.5 mg/dL (1.7-2.3); Osmolality Calculated 302 mOsm/kg (285-295); Phosphorus 2.4 mg/dL (2.5-4.5); Potassium 3.8 mmol/L (3.5-5.1); Sodium 146 mmol/L (136-145); Total Bilirubin 0.8 mg/dL (0.15-1.2); Total Protein 6.4 g/dL (6.6-8.7)
[2022-10-21 05:42] LABS: Ferritin 118 ng/mL (30-400); Iron 61 ug/dL (59-158); Percent Saturation 29.7 % (20-50); Total Iron Binding Capacity 205 mcg/dl; Unsaturated Iron Binding 144 ug/dL (112-347)
--- NOTE | 2022-10-21 06:49 | PM.PN ---
Subjective Subjective: feels better Vitals/I&O/Wt Last Vital Signs Temp 97 F L 10/21/22 04:00 Pulse 92 10/21/22 06:00 Resp 18 10/21/22 04:00 BP 145/76 10/21/22 04:00 Pulse Ox 90 10/21/22 04:00 O2 Del Method Room Air 10/20/22 20:12 O2 Flow Rate 2 10/18/22 10:56 FiO2 3 10/17/22 03:05 10/20/22 10/20/22 10/21/22 14:59 22:59 06:59 Intake Total 240 / 240 412 / 652 Output Total 750 / 750 200 / 950 350 / 1300 Balance -510 / -510 212 / -298 -350 / -648 Physical Exam Const: COMMON NORMALS: no acute distress and alert Neuro: SENSORIUM/ORIENTATION: Yes alert Urinary Catheter Management: Andrade: Cath Placed During This Visit: yes, but has since been removed by the nurse Reason for Continuing Indwelling Catheter: Other Urinary Catheter Date of Insertion: 10/17/22 Urinary Catheter Time of Insertion: 02:48 Date Urinary Catheter Removed: 10/19/22 Time Urinary Catheter Discontinued: 11:00 Data 10/21/22 04:55 10/21/22 04:55 Other Labs: Ca 8.3, phos 2.4, Mg 1.5 TSAT 29.8%, SF 118 Other data: seen via telemedicine with assistance of RN at bedside A&P Assessment and plan (1) Hyperkalemia: Plan 1. Acute kidney injury, Chronic kidney disease. Serum creatinine continues to improve. Baseline renal function not known. Floyd says he had stage 3 CKD 2. Hypomagnesemia, begin MgOx 3. Metabolic acidosis,resolved 4. Hypernatremia, increase water intake 5. Hypertension. Can resume ARB 6. Anemia. iron replete. Hb higher d/c fluids. stable for discharge.outpatient nephrololgy follow-up will sign off. please call if needed Attestations Medical Necessity Statement*: per primary service Time Spent in Patient Care: 16 - 35 minutes Coding Level of Care Code Acute Code for [facility]g Fwd Diagnoses Hyperkalemia E87.5
[2022-10-21] MEDS: atorvastatin 40 mg Tablet PO (08:10)
[2022-10-21] MEDS: finasteride 5 mg Tablet PO (08:10)
[2022-10-21] MEDS: pantoprazole DR 40 mg Tablet PO (08:10)
[2022-10-21] MEDS: magnesium oxide 400 mg tablet PO ×2 (08:10→19:24)
[2022-10-21] MEDS: rivaroxaban 10 mg Tablet 15 MG PO (08:10)
--- NOTE | 2022-10-21 14:05 | P.PN_ITS ---
Subjective Subjective: He states he is having some pain after time spent on the floor and is neck, back, right leg, and pain medication is not lasting long enough since that 6- hour interval he does not get around time. Requests increased frequency. Discussed with him risks in setting of acute kidney injury. Vitals/I&O/Wt Last Vital Signs Temp 98.1 F 10/21/22 12:00 Pulse 73 10/21/22 12:00 Resp 16 10/21/22 12:00 BP 150/92 10/21/22 12:00 Pulse Ox 91 10/21/22 12:00 O2 Del Method Room Air 10/21/22 12:00 O2 Flow Rate 2 10/18/22 10:56 FiO2 3 10/17/22 03:05 10/20/22 10/21/22 10/21/22 22:59 06:59 14:59 Intake Total 412 / 652 1336.667 / 1336.667 Output Total 200 / 950 350 / 1300 400 / 400 Balance 212 / -298 -350 / -648 936.667 / 936.667 Physical Exam Const: COMMON NORMALS: patient oriented x3 and alert GENERAL APPEARANCE: cooperative NUTRITIONAL APPEARANCE: obese ORIENTATION/CONSCIOUSNESS: Yes awake HENMT: COMMON NORMALS: oropharynx normal Neck/C-Spine: COMMON NORMALS: no JVD Resp: COMMON NORMALS: normal respiratory effort and clear to auscultation bilaterally AUSCULTATION: clear to auscultation bilaterally Cardio: COMMON NORMALS: no JVD, regular rhythm, S1 normal heart sound present, S2 normal heart sound present and No murmurs present (Cardio) RHYTHM: regular rhythm HEART SOUNDS: S1 normal heart sound present and S2 normal heart sound present GI: COMMON NORMALS: Normal to inspection, nondistended, normoactive bowel sounds present, Soft to palpation and non-tender PALPATION: Yes Soft to palpation Extremity: COMMON NORMALS: no joint enlargement and no pedal edema Neuro: COMMON NORMALS: patient oriented x3 and moves all extremities SENSORIUM/ORIENTATION: Yes alert Skin: COMMON NORMALS: no rashes or lesions noted GENERAL SKIN EXAM: no rashes or lesions noted Urinary Catheter Management: Andrade: Cath Placed During This Visit: yes, but has since been removed by the nurse Reason for Continuing Indwelling Catheter: Other Urinary Catheter Date of Insertion: 10/17/22 Urinary Catheter Time of Insertion: 02:48 Date Urinary Catheter Removed: 10/19/22 Time Urinary Catheter Discontinued: 11:00 Data 10/21/22 04:55 10/21/22 04:55 A&P Assessment and plan (1) Hyperkalemia: (2) Syncope: Qualifiers: Syncope type: unspecified Qualified Code(s): R55 - Syncope and collapse (3) JOHN (acute kidney injury): (4) CHF (congestive heart failure): (5) CAD (coronary artery disease): (6) Atrial fibrillation: (7) Diabetes mellitus: (8) HTN (hypertension): (9) Hypercholesterolemia: (10) Diabetic peripheral neuropathy: (11) Syncope and collapse: (12) Rhabdomyolysis: Plan #Fall, unsure if mechanical in nature, etiology unknown #JOHN on CKD, stage V kidney disease, creatinine 5.7 today. #Hyperkalemia #Atrial fibrillation, rate controlled #Hypertension #Hyperlipidemia #COPD/centrilobular emphysema #BPH #History of TIA, history of SC #Type 2 diabetes mellitus, lac-nufuucx-[id number] #syncope and collapse Rhabdomyolysis resolved. Still having pain, every 6 hours pain medication inadequate. JOHN is improving, discussed with him risks of increasing frequency especially in acute kidney injury. He still wants to proceed given his pain is not under control. Increased to every 4 hours as needed. Discussed with patient and nursing staff, monitor closely for pain in setting of acute kidney injury for any mental status changes/signs of toxicity with each administration. Creatinine continues to gradually improve. Creatinine down to 1.9. BUN 15. Sodium 146, potassium 3.6. Bicarb 20, -13.8. Nephrology documentation appreciated. Follow-up renal function, chemistry. ? recurrent hyperkalemia, resolved Weaned off oxygen supplementation. ? on cardiac telemetry to rule out occult arrhythmia. Consider event monitor at discharge ? cardiac echo no acute findings ? Atrial fibrillation currently rate controlled. Continue home medications ? carotid ultrasound no acute findings -follow telemetery, ? EKG did not show heart block or acute ischemic changes at this time Thrombocytopenia: Platelets noted 104. Started on Xarelto. Follow-up CBC. ? BNP elevated at 2864 most likely secondary to stage V kidney disease. ? Resumed on atorvastatin, finasteride, omeprazole, ? orthostats positive, tamsulosin had been held. Follow-up orthostatic vitals requested ? Currently on Xarelto ?Continue sodium bicarbonate ? Placed on fall precautions ? PT/OT prior to discharge ? Hold home antihyperglycemic agents. Placed on low-dose intensity sliding scale ACHS -Replace magnesium. Recheck -For syncope and collapse consider event monitor on discharge Occasional blisters on shins - Intermittent. Not currently. Additionally follow up with dermatology. Full code DVT prophylaxis SCDs, Xarelto Possible discharge to halfway study tomorrow. Attestations Medical Necessity Statement*: Continue admission for assessment management of improving JOHN, optimization of pain control in the setting of acute kidney injury, following resolved rhabdomyolysis, disposition planning and arrangements. Diagnoses Hyperkalemia E87.5 Syncope R55 Syncope type: unspecified JOHN (acute kidney injury) N17.9 CHF (congestive heart failure) I50.9 CAD (coronary artery disease) I25.10 Atrial fibrillation I48.91 Diabetes mellitus E11.9 HTN (hypertension) I10 Hypercholesterolemia E78.00 Diabetic peripheral neuropathy E11.42 Syncope and collapse R55 Rhabdomyolysis M62.82
[2022-10-22] VITALS: BP 152/87; PULSE 87; RESP 16; TEMP 36.3; O2SAT 92
[2022-10-22 03:35] VITALS: BP 145/94; PULSE 88; RESP 20; TEMP 36.7; O2SAT 90
[2022-10-22] MEDS: HYDROcodone-acetaminophen 10-325 mg Tablet 1 TAB PO ×3 (04:18→12:32)
[2022-10-22 04:42] LABS: Basophils % 0.5 %; Eosinophils # 0.1 10^3/uL (0.0-0.8); Eosinophils % 2.8 %; Hematocrit 35.6 % (42.0-52.0); Hemoglobin 11.4 g/dL (11.7-16.6); Lymphocytes # 0.6 10^3/uL (0.8-4.8); Lymphocytes % 15.6 %; Mean Corpuscular Hemoglobin 32.4 pg (28.0-34.0); Mean Corpuscular Volume 101.1 fl (80-94); Mean Platelet Volume 10.6 fL (7.4-10.4); Monocytes # 0.5 10^3/uL (0.2-0.9); Monocytes % 13.3 %; Neutrophils # 2.62 10^3/uL (1.8-7.7); Neutrophils % 67.3 %; Nucleated Red Blood Cells % 0 %; Platelet Count 117 10^3/cmm (130-400); Red Blood Count 3.52 10^6/uL (4.1-5.3); Red Cell Distribution Width 15.1 % (12.1-15.1); White Blood Count 3.9 10^3/uL (4.0-10.0)
[2022-10-22 05:04] LABS: Anion Gap 12.6 (5-19); Blood Urea Nitrogen 15 mg/dL (8-23); Carbon Dioxide 23 mmol/L (22-29); Chloride 109 mmol/L (98-107); Glucose 85 mg/dL (65-115); Osmolality Calculated 292 mOsm/kg (285-295); Potassium 3.6 mmol/L (3.5-5.1); Sodium 141 mmol/L (136-145)
[2022-10-22 05:06] LABS: Creatinine Clr Calc Pharmacy 47.2335
[2022-10-22 06:00] VITALS: PULSE 80
[2022-10-22 07:58] VITALS: BP 149/89; PULSE 85; RESP 18; TEMP 36.7; O2SAT 93
[2022-10-22] MEDS: ondansetron 2 mg/ML SDV 2 mL 4 MG IVP (08:19)
[2022-10-22] MEDS: rivaroxaban 10 mg Tablet 15 MG PO (08:19)
[2022-10-22] MEDS: finasteride 5 mg Tablet PO (08:19)
[2022-10-22] MEDS: pantoprazole DR 40 mg Tablet PO (08:19)
[2022-10-22] MEDS: magnesium oxide 400 mg tablet PO (08:19)
[2022-10-22] MEDS: atorvastatin 40 mg Tablet PO (08:19)
[2022-10-22] MEDS: hydrocortisone 1% cream 28 gm 1 APPLIC TOPICAL (08:29)
[2022-10-22 08:44] LABS: Magnesium 1.6 mg/dL (1.7-2.3)
[2022-10-22 08:52] LABS: SARS Covid-2 Antigen negative (Negative)
--- NOTE | 2022-10-22 08:59 | PC.SOCIAL ---
IMM Update pg 2 of IMM updated and reviewed w/ patient. Copy provided and Copy in chart dated, and initialed.
[2022-10-22 12:00] VITALS: BP 120/73; PULSE 71; RESP 16; TEMP 36.6; O2SAT 90
--- NOTE | 2022-10-22 12:00 | PM.DCS ---
Discharge Providers Date of Admission: 10/17/22 00:09 Date of Discharge: October 22, 2022 Attending Provider at Admission: Sheyla Crain MD Attending Provider at Discharge: Roger Stafford Primary Care Provider: TWYLA BETANCOURT MD Diagnoses at Discharge Discharge Diagnosis (1) Hyperkalemia: Status: Acute (2) Syncope: Status: Acute Qualifiers: Syncope type: unspecified Qualified Code(s): R55 - Syncope and collapse (3) JOHN (acute kidney injury): Status: Acute (4) CHF (congestive heart failure): Status: Acute (5) CAD (coronary artery disease): Status: Acute (6) Atrial fibrillation: Status: Acute (7) Diabetes mellitus: Status: Acute (8) HTN (hypertension): Status: Acute (9) Hypercholesterolemia: Status: Acute (10) Diabetic peripheral neuropathy: Status: Acute (11) Syncope and collapse: Status: Acute (12) Rhabdomyolysis: Status: Acute Reason for Visit Reason for Visit: FALL Hospital Course Hospital Course 72-year-old gentleman was admitted after a fall at home, with noted rhabdomyolysis presentation, with acute kidney injury, with history of chronic kidney disease. Transiently with hyperkalemia. Metabolic acidosis. Received gentle IV fluid hydration. ARB was held. Statin transiently held. Received sodium bicarb, Kayexalate. Rhabdomyolysis resolved. Hyperkalemia resolved. Transiently was switched from Xarelto to heparin drip then switched back with improving kidney function. Noted chronic thrombocytopenia, please follow-up blood counts for thrombocytopenia, anemia. Please follow-up chemistries, he is asked to follow-up with nephrology. Reported to have had history of stage III CKD. Continue physical therapy. Maintain fall precautions. Orthostatics were checked in the hospital and blood pressure increased from laying to sitting. Echocardiogram obtained during hospitalization with normal EF, normal RV size and systolic function. No significant change from prior in 2017. Required magnesium replacement, given IV magnesium started on oral supplement. Please follow-up. Due to reports of intermittent rash with small blisters on his lower extremities, not currently present, he is referred for follow-up with dermatology. Physical Exam Narrative: Sitting up in a chair. Denies any complaints. States he is looking forward to proceeding to rehabilitation. Const: COMMON NORMALS: patient oriented x3 and alert GENERAL APPEARANCE: cooperative NUTRITIONAL APPEARANCE: obese ORIENTATION/CONSCIOUSNESS: Yes awake HENMT: COMMON NORMALS: oropharynx normal Neck/C-Spine: COMMON NORMALS: no JVD Resp: COMMON NORMALS: normal respiratory effort and clear to auscultation bilaterally AUSCULTATION: clear to auscultation bilaterally Cardio: COMMON NORMALS: no JVD, regular rhythm, S1 normal heart sound present, S2 normal heart sound present and No murmurs present (Cardio) RHYTHM: regular rhythm HEART SOUNDS: S1 normal heart sound present and S2 normal heart sound present GI: COMMON NORMALS: Normal to inspection, nondistended, normoactive bowel sounds present, Soft to palpation and non-tender PALPATION: Yes Soft to palpation Extremity: COMMON NORMALS: no joint enlargement and no pedal edema Neuro: COMMON NORMALS: patient oriented x3 and moves all extremities SENSORIUM/ORIENTATION: Yes alert Skin: COMMON NORMALS: no rashes or lesions noted GENERAL SKIN EXAM: no rashes or lesions noted Urinary Catheter Management: Andrade: Cath Placed During This Visit: yes, but has since been removed by the nurse Reason for Continuing Indwelling Catheter: Other Urinary Catheter Date of Insertion: 10/17/22 Urinary Catheter Time of Insertion: 02:48 Date Urinary Catheter Removed: 10/19/22 Time Urinary Catheter Discontinued: 11:00 Discharge Data Studies Completed and Pending Completed Studies During Hospitalization Category Date Time Status CT cervical spin wo con* [id number] Stat Cat Scan 10/16/22 21:[address] [place] [id number] Stat Cat Scan 10/16/22 21:[address] head wo con* [id number] Stat Cat Scan 10/16/22 21:29 Completed CV carotid duplex BI* [id number] Routine Ultrasound 10/17/22 08:11 Completed US echo complete [CV. echo complete* [id number]] Routine Ultrasound 10/17/22 02:15 Completed Pending at discharge Category Date Time Status Basic Metabolic Panel AM LABS Lab 10/23/22 04:00 Ordered Basic Metabolic Panel AM LABS Lab 10/24/22 04:00 Ordered Complete Blood Count w/Auto AM LABS Lab 10/23/22 04:00 Ordered Complete Blood Count w/Auto AM LABS Lab 10/24/22 04:00 Ordered Radiology Impressions Cervical Spine CT 10/16/22 21:29 IMPRESSION: 1. Degenerative and postsurgical changes in the cervical spine stable compared with 06/30/2014. 2. No acute fracture. Head CT 10/16/22 21:29 IMPRESSION: No acute intracranial finding Chest/Abdomen/Pelvis CT 10/16/22 21:42 IMPRESSION: 1. Mild emphysema 2. No acute findings in the chest 3. Old granulomatous disease 4. 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 No acute findings in the abdomen or pelvis. 2. Bilateral nephrolithiasis 3. Hepatic cysts. Laboratory Results WBC 3.9 10^3/uL (4.0-10.0) L 10/22/22 03:51 RBC 3.52 10^6/uL (4.1-5.3) L 10/22/22 03:51 Hgb 11.4 g/dL (11.7-16.6) L 10/22/22 03:51 Hct 35.6 % (42.0-52.0) L 10/22/22 03:51 MCV 101.1 fl (80-94) H 10/22/22 03:51 MCH 32.4 pg (28.0-34.0) 10/22/22 03:51 MCHC 32.0 g/dL (30.0-36.0) 10/22/22 03:51 RDW 15.1 % (12.1-15.1) 10/22/22 03:51 Plt Count 117 10^3/cmm (130-400) L 10/22/22 03:51 MPV 10.6 fL (7.4-10.4) H 10/22/22 03:51 Neut % (Auto) 67.3 % 10/22/22 03:51 Lymph % (Auto) 15.6 % 10/22/22 03:51 Ida % (Auto) 13.3 % 10/22/22 03:51 Eos % (Auto) 2.8 % 10/22/22 03:51 Baso % (Auto) 0.5 % 10/22/22 03:51 Neut # (Auto) 2.62 10^3/uL (1.8-7.7) 10/22/22 03:51 Lymph # (Auto) 0.6 10^3/uL (0.8-4.8) L 10/22/22 03:51 Ida # (Auto) 0.5 10^3/uL (0.2-0.9) 10/22/22 03:51 Eos # (Auto) 0.1 10^3/uL (0.0-0.8) 10/22/22 03:51 Baso # (Auto) 0.0 10^3/uL (0.0-0.1) 10/22/22 03:51 Nucleated RBC % (auto) 0 % 10/22/22 03:51 Nucleated RBCs # 0.0 /100WBC 10/22/22 03:51 APTT 58.4 SECONDS (23.9-36.7) H 10/19/22 04:30 Sodium 141 mmol/L (136-145) 10/22/22 03:51 Potassium 3.6 mmol/L (3.5-5.1) 10/22/22 03:51 Chloride 109 mmol/L (98-107) H 10/22/22 03:51 Carbon Dioxide 23 mmol/L (22-29) 10/22/22 03:51 Anion Gap 12.6 (5-19) 10/22/22 03:51 BUN 15 mg/dL (8-23) 10/22/22 03:51 Creatinine 1.7 mg/dL (0.7-1.2) H 10/22/22 03:51 GFR Calculation Not Reportable 10/22/22 03:51 Glucose 85 mg/dL (65-115) 10/22/22 03:51 POC Glucose 86 mg/dL (70-110) 10/17/22 00:29 Estimat Average Glucose 85 10/17/22 03:35 Hemoglobin A1c 4.6 % (4.0-6.0) 10/17/22 03:35 Calculated Osmolality 292 mOsm/kg (285-295) 10/22/22 03:51 Lactic Acid 0.7 mmol/L (0.5-2.2) 10/16/22 21:41 Calcium 9.0 mg/dL (8.5-10.5) 10/22/22 03:51 Phosphorus 2.4 mg/dL (2.5-4.5) L 10/21/22 04:55 Magnesium 1.6 mg/dL (1.7-2.3) L 10/22/22 03:51 Iron 61 ug/dL (59-158) 10/21/22 04:55 TIBC 205 mcg/dl 10/21/22 04:55 % Saturation 29.7 % (20-50) 10/21/22 04:55 Unsat Iron Binding 144 ug/dL (112-347) 10/21/22 04:55 Ferritin 118 ng/mL (30-400) 10/21/22 04:55 Total Bilirubin 0.8 mg/dL (0.15-1.2) 10/21/22 04:55 AST 14 U/L (0-40) 10/21/22 04:55 ALT 8 U/L (0-41) 10/21/22 04:55 Alkaline Phosphatase 73 U/L (40-130) 10/21/22 04:55 Creatine Kinase 257 U/L (39-308) 10/18/22 07:19 Creatine Kinase Cancelled 10/18/22 07:19 CK-MB (CK-2) 4.2 ng/mL (0-10.4) 10/16/22 21:41 CK-MB (CK-2) Rel Index % (0.0-5.3) 10/16/22 21:41 Troponin T Baseline 23 ng/L (0-15) H 10/16/22 21:41 Troponin T 120 Minute 21.11 ng/L (0-15) H 10/16/22 23:17 Delta Troponin T -1.89 ABS# (0-10) L 10/16/22 23:17 Troponin T Hi Sens 6Hr 21.91 ng/L (0-15) H 10/17/22 03:35 Troponin T Hi Sens 6Hr Delta -1.09 ng/L (0-12) L 10/17/22 03:35 NT-Pro-B Natriuret Pep 2864 pg/mL (0-125) H 10/16/22 21:41 Total Protein 6.4 g/dL (6.6-8.7) L 10/21/22 04:55 Albumin 3.6 g/dL (3.5-5.2) 10/21/22 04:55 Globulin 2.8 g/dL (1.3-4.6) 10/21/22 04:55 Procalcitonin 0.45 ng/mL (0-0.5) 10/17/22 03:35 Urine Color Yellow (Yellow) 10/16/22 21:45 Urine Appearance Clear (CLEAR) 10/16/22 21:45 Urine pH 5 (5-7) 10/16/22 21:45 Ur Specific [place] 1.015 (1.005-1.030) 10/16/22 21:45 Urine Protein Trace (Negative) 10/16/22 21:45 Urine Glucose (UA) Norm (Normal) 10/16/22 21:45 Urine Ketones Negative (Negative) 10/16/22 21:45 Urine Blood 3+ (Negative) H 10/16/22 21:45 Urine Nitrate Negative (Negative) 10/16/22 21:45 Urine Bilirubin Neg (Negative) 10/16/22 21:45 Urine Urobilinogen Norm mg/dL (Negative) 10/16/22 21:45 Ur Leukocyte Esterase Negative (Negative) 10/16/22 21:45 Urine RBC 0-4 /hpf (0-2) H 10/16/22 21:45 Urine WBC 0-4 /hpf (0-5) H 10/16/22 21:45 Ur Squamous Epith Cells 0-4 /hpf (0-5) H 10/16/22 21:45 Amorphous Sediment Not Reportable 10/16/22 21:45 Urine Bacteria Trace /hpf (NONE) 10/16/22 21:45 Hyaline Casts 0-4 /lpf H 10/16/22 21:45 Urine Opiates Screen Positive ng/mL (Negative) H 10/17/22 15:00 Ur Barbiturates Screen Negative ng/mL (Negative) 10/17/22 15:00 Ur Phencyclidine Scrn Negative ng/mL (Negative) 10/17/22 15:00 Ur Amphetamines Screen Negative ng/mL (Negative) 10/17/22 15:00 U Benzodiazepines Scrn Negative ng/mL (Negative) 10/17/22 15:00 Urine Cocaine Screen Negative ng/mL (Negative) 10/17/22 15:00 U Marijuana (THC) Screen Negative ng/mL (Negative) 10/17/22 15:00 Ethyl Alcohol < 10 mg/dL (0-10) 10/17/22 03:35 SARS-CoV-2 Ag (Rapid) negative (Negative) 10/22/22 08:23 Vitals Last Vital Signs Temp 98.1 F 10/22/22 07:58 Pulse 85 10/22/22 07:58 Resp 18 10/22/22 07:58 BP 149/89 10/22/22 07:58 Pulse Ox 93 10/22/22 07:58 O2 Del Method Room Air 10/22/22 07:28 O2 Flow Rate 2 10/22/22 08:00 FiO2 3 10/17/22 03:05 Discharge Plan Discharge Patient Disposition: Xfer SNF Condition: Stable Prescriptions: New polyethylene glycol 3350 17 gram Powder In Packet 17 g PO DAILY PRN (Reason: Constipation) Qty: 90 0RF magnesium oxide 400 mg (241.3 mg magnesium) Tablet 400 mg PO BID Qty: 60 0RF Continued omeprazole magnesium [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 [employer]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 (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)] 20 mg capsule,delayed release(DR/EC) 20 mg PO DAILY finasteride 5 mg tablet 5 mg PO DAILY atorvastatin 20 mg tablet 20 mg PO DAILY Trulicity 0.75 mg/0.5 mL pen injector 0.75 mg SUBCUT .weekly calcium citrate 1,000 mg tablet 1,000 mg PO DAILY vitamin B complex [B Complex-Vitamin B12] Tablet 1 tab PO DAILY nitroglycerin 0.4 mg tablet, sublingual 0.4 mg sublingual Q5M PRN (Reason: chest pain) Qty: 30 5RF Rx Instructions: do not exceed 3 doses per episode Xarelto 20 mg tablet 20 mg PO DAILY Qty: 90 3RF Rx Instructions: must administer with evening meal isosorbide mononitrate 30 mg tablet extended release 24 hr 30 mg PO DAILY Qty: 90 0RF Changed hydrocodone-acetaminophen 10-325 mg tablet 1 tab PO Q6H PRN (Reason: pain) Qty: 20 0RF Held furosemide 20 mg tablet 20 mg PO DAILY PRN (Reason: Edema) Hold Instructions: Resume on 11/26/22. Discontinued amlodipine 5 mg tablet 5 mg PO DAILY tamsulosin 0.4 mg capsule 0.4 mg PO DAILY potassium chloride 10 mEq capsule, extended release 10 meq PO DAILY irbesartan 300 mg tablet 300 mg PO DAILY Discharge Orders: Discharge Order (Routine); Ordered 10/22/22 Ordered By: Roger Stafford Referrals: Dermatology [facility] [Provider Group] - 1 month (Intermittent blistering rash on shins) Nephrology [Provider Group] - 2 weeks (PLEASE CALL FOR APPOINTMENT) [facility] [Outside] TWYLA BETANCOURT MD [Primary Care Provider] - 4-7 days Discharge Diet: As Directed Discharge Activity: Increase activity as tolerated Activity Restrictions/Additional Instructions: Continue renal diet. Follow-up with nephrology. Follow-up with dermatology for additional assessment of intermittent blistering rash on shins. Maintain fall precautions. Follow-up blood chemistry and renal function next week. Follow-up thrombocytopenia. Discharge Attestations Time Spent in Discharge Care*: greater than 30 min Quality Metrics Clinical Quality Measures [ No reported AMI, CVA or VTE this stay] Coding Level of Care Code 21543 Total time (in minutes) for Discharge: 40 Diagnoses Hyperkalemia E87.5 Syncope R55 Syncope type: unspecified JOHN (acute kidney injury) N17.9 CHF (congestive heart failure) I50.9 CAD (coronary artery disease) I25.10 Atrial fibrillation I48.91 Diabetes mellitus E11.9 HTN (hypertension) I10 Hypercholesterolemia E78.00 Diabetic peripheral neuropathy E11.42 Syncope and collapse R55 Rhabdomyolysis M62.82
--- NOTE | 2022-10-22 13:38 | PC.NURSE ---
Report called to [facility].
[2022-10-22 14:28] VITALS: BP 120/73; PULSE 71; RESP 16; TEMP 36.6; O2SAT 90
== END 2022-10-22 14:29 | disposition skilled nursing facility (03) | DRG 683 ==
LOC: ER 10-17 00:16 → MEDSURG 10-17 00:35
PROVIDERS: Family Medicine; Internal Medicine; Admitting Provider Internal Medicine; Emergency Provider Physician Assistant; PCP Family Medicine; Visit Provider Internal Medicine
DX: N17.9 Acute kidney failure, unspecified (principal); E87.0 Hyperosmolality and hypernatremia; I13.2 Hypertensive heart and chronic kidney disease with heart failure and with stage 5 chronic kidney disease, or end stage renal disease; M62.82 Rhabdomyolysis; E87.20 Acidosis, unspecified; E87.5 Hyperkalemia; N18.5 Chronic kidney disease, stage 5; E78.00 Pure hypercholesterolemia, unspecified; N40.0 Benign prostatic hyperplasia without lower urinary tract symptoms; J43.2 Centrilobular emphysema; D64.9 Anemia, unspecified; I25.10 Atherosclerotic heart disease of native coronary artery without angina pectoris; Z98.61 Coronary angioplasty status; E11.42 Type 2 diabetes mellitus with diabetic polyneuropathy; Z79.84 Long term (current) use of oral hypoglycemic drugs; I25.2 Old myocardial infarction; Z86.73 Personal history of transient ischemic attack (TIA), and cerebral infarction without residual deficits; Z87.891 Personal history of nicotine dependence; D69.6 Thrombocytopenia, unspecified; R55 Syncope and collapse; I50.9 Heart failure, unspecified; E11.22 Type 2 diabetes mellitus with diabetic chronic kidney disease; K59.00 Constipation, unspecified; E83.42 Hypomagnesemia
CPT/HCPCS: 36415; 36416; 51702; 70450; 71250; 72125; 74176; 80048; 80053; 80306; 80307; 81001; 82550; 82553; 82728; 82962; 83036; 83540; 83550; 83605; 83735; 83880; 84100; 84132; 84145; 84484; 85025; 85049; 85730; 87426; 93005; 93306; 93880; 94640; 94664; 96374; 96375; 97110; 97116; 97161; 97166; 97530; 99285; J0612; J1644; J1815; J2270; J2405; J3475; J7030; J7626

== ENCOUNTER → 2022-12-02 10:41 | Outpatient (BNVA) | payer MEDICARE, MEDICAID, SELFPAY | PROVIDERS: PCP Family Medicine; Visit Provider Internal Medicine Cardiovascular Disease | DX: I48.91 Unspecified atrial fibrillation (principal); Z79.01 Long term (current) use of anticoagulants; Z87.891 Personal history of nicotine dependence; I10 Essential (primary) hypertension; I25.2 Old myocardial infarction; I25.10 Atherosclerotic heart disease of native coronary artery without angina pectoris | CPT/HCPCS: 99214 ==

== ENCOUNTER → 2022-12-05 12:50 | Outpatient (BNVA) | payer MEDICARE, MEDICAID, SELFPAY | PROVIDERS: PCP Family Medicine; Referring Provider Internal Medicine; Visit Provider Nurse Practitioner Family | DX: L57.0 Actinic keratosis (principal); D03.39 Melanoma in situ of other parts of face; I87.2 Venous insufficiency (chronic) (peripheral); L81.4 Other melanin hyperpigmentation; D22.5 Melanocytic nevi of trunk; L85.3 Xerosis cutis; L57.8 Other skin changes due to chronic exposure to nonionizing radiation; L82.1 Other seborrheic keratosis | CPT/HCPCS: 11102; 17000; 17003; 99204 ==

== ENCOUNTER → 2023-01-01 08:58 | Outpatient (BNVA) | payer MEDICARE, MEDICAID, SELFPAY | PROVIDERS: PCP Family Medicine; Visit Provider Dermatology | DX: D03.39 Melanoma in situ of other parts of face (principal) | CPT/HCPCS: 11644 ==

== ENCOUNTER → 2023-01-09 08:47 | Outpatient (BNVA) | payer MEDICARE, MEDICAID, SELFPAY | PROVIDERS: PCP Family Medicine; Visit Provider Dermatology | DX: D03.39 Melanoma in situ of other parts of face (principal); Z87.891 Personal history of nicotine dependence | CPT/HCPCS: 14041 ==

== ENCOUNTER → 2023-01-20 08:30 | Outpatient (BNVA) | payer MEDICARE, MEDICAID, SELFPAY | PROVIDERS: PCP Family Medicine; Visit Provider Dermatology | DX: D48.5 Neoplasm of uncertain behavior of skin (principal); Z48.02 Encounter for removal of sutures | CPT/HCPCS: 11102 ==

== ENCOUNTER 2023-02-10 12:41 | Outpatient (CLI) | payer MEDICARE, MEDICAID, SELFPAY ==
[2023-02-10 13:29] LABS: Add Urine Microscopic? YES; Bilirubin Urine Neg (Negative); Blood Urine 3+ (Negative); Glucose Urine UA Norm (Normal); Ketones Urine Negative (Negative); Leukocyte Esterase Urine Trace (Negative); Nitrate Urine Negative (Negative); Protein Urine Neg (Negative); Urine Appearance SL Hazy (CLEAR); Urine Color Yellow (Yellow); Urobilinogen Urine Norm (Negative); pH Urine 6.5 (5-7)
[2023-02-10 13:42] LABS: Bacteria Urine 1+ /hpf; RBC Urine 15-25 /hpf (0-2); Squamous Epithelial Cell Urine 0-4 /hpf (0-5)
[2023-02-10 13:43] LABS: Add Urine Culture? Yes
== END 2023-02-10 12:42 | disposition home or self-care (01) ==
PROVIDERS: PCP Family Medicine; Visit Provider Family Medicine
DX: R39.15 Urgency of urination (principal); R33.8 Other retention of urine
CPT/HCPCS: 81001; 87077; 87086; 87186

== ENCOUNTER → 2023-04-24 14:24 | Outpatient (BNVA) | payer MEDICARE, MEDICAID, SELFPAY | PROVIDERS: PCP Family Medicine; Visit Provider Internal Medicine Cardiovascular Disease | DX: I48.91 Unspecified atrial fibrillation (principal); Z79.01 Long term (current) use of anticoagulants; I10 Essential (primary) hypertension; Z87.891 Personal history of nicotine dependence | CPT/HCPCS: 99214 ==

== ENCOUNTER → 2023-10-23 09:55 | Outpatient (BNVA) | payer MEDICARE, MEDICAID, SELFPAY | PROVIDERS: PCP Family Medicine; Visit Provider Internal Medicine Cardiovascular Disease | DX: I48.91 Unspecified atrial fibrillation (principal); Z79.01 Long term (current) use of anticoagulants; I11.0 Hypertensive heart disease with heart failure; I50.9 Heart failure, unspecified; E78.00 Pure hypercholesterolemia, unspecified; Z86.73 Personal history of transient ischemic attack (TIA), and cerebral infarction without residual deficits; Z87.891 Personal history of nicotine dependence | CPT/HCPCS: 99214 ==

== ENCOUNTER → 2024-04-28 14:20 | Outpatient (BNVA) | payer MEDICARE, MEDICAID, SELFPAY | PROVIDERS: PCP Family Medicine; Visit Provider Internal Medicine Cardiovascular Disease | DX: R07.9 Chest pain, unspecified (principal); I48.91 Unspecified atrial fibrillation; I25.118 Atherosclerotic heart disease of native coronary artery with other forms of angina pectoris; E78.00 Pure hypercholesterolemia, unspecified; I10 Essential (primary) hypertension; I50.9 Heart failure, unspecified; E11.22 Type 2 diabetes mellitus with diabetic chronic kidney disease; N18.31 Chronic kidney disease, stage 3a | CPT/HCPCS: 93005; 99214 ==

== ENCOUNTER 2024-08-21 12:32 | Inpatient (IN) | payer MEDICARE, MEDICAID, SELFPAY ==
[2024-08-21] VITALS (28 sets, daily range): BP systolic 106–150; BP diastolic 68–112; PULSE 59–128; RESP 8–21; TEMP 36.6–36.8; O2SAT 75–98; BMI 31.5
[2024-08-21 12:49] LABS: Glucose Point of Care 86 mg/dL (70-110)
--- NOTE | 2024-08-21 12:50 | CTR_ITS ---
PROCEDURE INFORMATION: Exam: CT Head Without Contrast Exam date and time: 08/21/2024 12:50 PM Age: 73 years old Clinical indication: Stroke-like symptoms; Altered mental status/memory loss; Additional info: Symptoms of acute stroke TECHNIQUE: Imaging protocol: Computed tomography of the head without contrast. Radiation optimization: All CT scans at this facility use at least one of these dose optimization techniques: automated exposure control; mA and/or kV adjustment per patient size (includes targeted exams where dose is matched to clinical indication); or iterative reconstruction. Other technique: STROKE PROTOCOL was implemented. COMPARISON: CT head wo con* [id number] 10/16/2022 9:50 PM RADIATION DOSE METRICS: Total DLP (mGy-cm): 1150.09 FINDINGS: Brain: No hemorrhage. No edema. Mild diffuse cerebral atrophy and sequela of chronic small vessel ischemic disease. No mass effect. Cerebral ventricles: No ventriculomegaly. Paranasal sinuses: Visualized sinuses are unremarkable. No fluid levels. Mastoid air cells: Visualized mastoid air cells are well aerated. Bones: Unremarkable. No acute fracture. Soft tissues: Unremarkable. CT/CT head thrombolytic [id number] IMPRESSION: No acute intracranial abnormality. ASSESSMENT: ASPECTS ([place] Stroke Program Early CT Score) is 10.
--- NOTE | 2024-08-21 12:50 | ECG_ITS ---
[email or web address] 2024-[facility]21 Pat Name: [place] Department: Room: Gender: Male [employer] Work[employer] Representative: : 1950 Requested By: Micha Leija Order Number: [id number] Reading MD: JAIRO FELICIANO Measurements Intervals [place] Rate: 94 P: 0 OK: 0 QRS: 207 QRSD: 98 T: -60 QT: 379 QTc: 476 Interpretive Statements ATRIAL FIBRILLATION WITH ABERRANT CONDUCTION OR VENTRICULAR PREMATURE COMPLEXES POSSIBLE RIGHT VENTRICULAR HYPERTROPHY [SOME/ALL OF: PROMINENT R IN V1, LATE TRANSITION, RAD, KATHIE, SSS] POSSIBLE ANTERIOR MYOCARDIAL INFARCTION , OF INDETERMINATE AGE [30 ms Q WAVE IN V3/V4, OR R < 0.2 mV IN V4] Compared to ECG 04/28/2024 14:23:54 Myocardial infarct finding now present Electronically Signed On 08-29-2024 21:39:22 CDT by JAIRO FELICIANO [email or web address]
--- NOTE | 2024-08-21 12:54 | W.ED.AMS ---
HPI - Altered Mental Status General: Chief Complaint: Altered Mental Status Stated Complaint: dysphasia Time Seen by Provider: 08/21/24 12:37 History of Present Illness: This patient is a 73-year-old white male brought in by EMS for evaluation of neurological symptoms. Patient tells me that he woke up this morning with difficulty remembering things. His speech was somewhat slurred. He has had some weakness in his legs and some incoordination with the hands. Patient tells me he went fishing yesterday and he was able to get in and out of his boat. He does have a history of coronary artery disease, TN, hypertension, hypercholesterolemia, atrial fibrillation for which he is on apixaban, TIA, diabetes. Related Data Home Medications ?Medication ?Instructions ?Recorded ?Confirmed atorvastatin 20 mg tablet 20 mg PO DAILY 01/24/21 08/21/24 finasteride 5 mg tablet 5 mg PO DAILY 01/24/21 08/21/24 omeprazole magnesium 20 mg 20 mg PO DAILY 01/24/21 08/21/24 capsule,delayed release (Acid Sewing Machine Assembler (omeprazole)) calcium citrate 250 mg PO DAILY 08/21/24 08/21/24 irbesartan 300 mg tablet 300 mg PO DAILY 08/21/24 08/21/24 pregabalin 200 mg capsule 200 mg PO BID PRN nerve pain 08/21/24 08/21/24 tamsulosin 0.4 mg capsule 0.4 mg PO DAILY 08/21/24 08/21/24 vitamin B complex 1 tab PO DAILY 08/21/24 08/21/24 Previous Rx's ?Medication ?Instructions ?Recorded isosorbide mononitrate 30 mg 30 mg PO DAILY #90 tabs 09/22/19 tablet,extended release 24 hr hydrocodone 10 mg-acetaminophen 1 tab PO Q6H PRN pain #20 tabs 10/22/22 325 mg tablet magnesium oxide 400 mg (241.3 mg 400 mg PO BID #60 tabs 10/22/22 magnesium) tablet nitroglycerin 0.4 mg sublingual 0.4 mg sublingual Q5M PRN chest 10/23/23 tablet pain #30 tabs apixaban 5 mg tablet (Eliquis) 5 mg PO BID #180 tabs 06/23/24 furosemide 40 mg tablet 40 mg PO DAILY Edema #90 tabs 01/29/25 Allergies Allergy/AdvReac Type Severity Reaction Status Date / Time No Known Allergies Allergy Verified 04/28/24 13:47 Review of Systems General: Reports: 10 or more systems reviewed and unremarkable except in HPI and below Neuro: Reports: weakness in extremities and Slurred speech present PFS ED PFSH: Medical History CAD (coronary artery disease) Atrial fibrillation History of TN (myocardial infarction) History of TIA (transient ischemic attack) Diabetes mellitus HTN (hypertension) Hypercholesterolemia Surgical History Status post left knee replacement S/P PTCA (percutaneous transluminal coronary angioplasty) Family History Father Stroke Diabetes Hypertension Mother Stroke Hypertension Brother Diabetes Hypertension Sister Diabetes Chronic kidney disease (CKD) Hypertension Social History Smoking and tobacco/nicotine status: former use of tobacco/nicotine Physical Exam Const: COMMON NORMALS: no acute distress, patient oriented x3 and no limitations GENERAL APPEARANCE: cooperative and comfortable HENMT: COMMON NORMALS: normocephalic, atraumatic, Normal nasal mucous membranes and turbinates present, moist oral mucous membranes and oropharynx normal HEAD & SCALP: normal to inspection, normocephalic and atraumatic FACE & SINUS: normal facial exam NOSE: Normal nasal mucous membranes and turbinates present Eye: COMMON NORMALS: Equal, round and reactive pupils present, EOMs intact bilaterally and conjunctivae normal GENERAL EYE: appearance normal, both eyes and all related structures CONJUNCTIVA: Yes conjunctivae normal PUPIL: Yes Equal, round and reactive pupils present Neck/C-Spine: COMMON NORMALS: supple and no JVD Chest: COMMONS NORMALS: normal inspection of the chest Resp: COMMON NORMALS: normal respiratory effort and clear to auscultation bilaterally AUSCULTATION: clear to auscultation bilaterally Cardio: COMMON NORMALS: no JVD, regular rate, regular rhythm, No gallops present (Cardio), No murmurs present (Cardio) and No rub (Cardio) RATE: regular rate RHYTHM: regular rhythm GI: COMMON NORMALS: Normal to inspection, nondistended, normoactive bowel sounds present, Soft to palpation and non-tender AUSCULTATION: Yes normoactive bowel sounds PALPATION: Yes Soft to palpation : COMMON NORMALS: Yes no CVA tenderness BLADDER/KIDNEY EXAM: Yes no CVA tenderness Back/Pelvis: COMMON NORMALS: no CVA tenderness and thoracic and lumbar spine normal to inspection Extremity: COMMON NORMALS: normal to inspection Neuro: COMMON NORMALS: patient oriented x3 OTHER: Patient does have some mild right facial droop. Some mild slurring of the speech. I could not appreciate any motor deficits in the upper extremities. He does have pronounced weakness in both legs. He does have some movement but cannot lift either leg off the bed. The NIH stroke scale was 6. Psych: COMMON NORMALS: mental status grossly normal, Normal thought process present and cooperative THOUGHT PROCESS: Normal thought process present Skin: COMMON NORMALS: no rashes or lesions noted, turgor normal and no jaundice GENERAL SKIN EXAM: no rashes or lesions noted and turgor normal Course Vital Signs: Vital signs: Vital Signs Temperature 97.9 F 08/21/24 12:33 Pulse Rate 105 H 08/21/24 12:33 Respiratory Rate 16 08/21/24 12:33 Blood Pressure 134/92 08/21/24 12:33 Pulse Oximetry 82 L 08/21/24 12:33 Oxygen Delivery Me thod Room Air 08/21/24 12:33 MDM - Altered Mental Status Medical Decision Making We did call a code stroke. Discussed the case with the stroke neurologist from [place] Dr. Romero. The head CT was read by the radiologist as nothing acute. Dr. Romero recommended a stat CT angiogram of the head and neck. Dr. Romero evaluated that study and did not see any large vessel occlusions and recommended we admit the patient here since there are no interventions that they can do at this point. Patient's CBC was normal. CMP reveals some acute kidney injury with a BUN of 39 and creatinine of 2.2. Blood pressure has been fine 134/92. Dr. Romero recommended discontinuing the apixaban and starting aspirin 325 mg/day. I did discuss the case with Dr. Sánchez, hospitalist here. He wanted an MRI of the lumbar spine which we did obtain. That does reveal significant foraminal and spinal stenosis. Dr. Sánchez is evaluating the patient in the emergency department and will admit the patient. Patient is stable. Lab Data 08/21/24 13:09 08/21/24 13:[address] 08/21/24 12:50 IMPRESSION: No acute intracranial abnormality. ASSESSMENT: ASPECTS ([place] Stroke Program Early CT Score) is 10. ADDENDUM: 08/21/24 1310 IDANIA FREY acknowledged receipt of report at 08/21/2024 1:08 PM CDT. 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 Dominant left vertebral artery and origin of right PRIMARY TEACHER. IMPRESSION: Mild proximal right ICA stenosis. REFERENCES: NASCET CRITERIA. The degree of stenosis in the cervical segment of the internal carotid artery is based on NASCET criteria. Normal is no stenosis. Mild is less than 50% stenosis. Moderate is 50-69% stenosis. Severe is 70% to 99% stenosis. Total occlusion is no detectable patent lumen. Lumbar Spine MRI 08/21/24 14:27 IMPRESSION: 1. Multilevel, multifactorial lumbar spine degenerative changes with severe right neural foraminal stenosis at L4-L5 and L5-S1, moderate to severe left neural foraminal stenosis at L3-L4 and L4-L5, and effacement of the right subarticular recess at L5-S1. Moderate spinal canal stenosis from L3-S1. 2. T11-12 moderate spinal canal and bilateral neural foraminal stenosis. Laboratory Results WBC 5.40 10^3/uL (3.29-11.43) 08/21/24 13:09 RBC 4.40 10^6/uL (3.85-5.65) 08/21/24 13:09 Hgb 14.40 g/dL (11.27-16.99) 08/21/24 13:09 Hct 48.9 % (37-53) 08/21/24 13:09 MCV 111.1 fl (82-101) H 08/21/24 13:09 MCH 32.7 pg (27-33) 08/21/24 13:09 MCHC 29.4 g/dL (30-55) L 08/21/24 13:09 RDW 17.8 % (12.1-15.1) H 08/21/24 13:09 Plt Count 159 10^3/cmm (157-399) 08/21/24 13:09 MPV 11.8 fL (7.4-10.4) H 08/21/24 13:09 Neut % (Auto) 76.7 % 08/21/24 13:09 Lymph % (Auto) 11.3 % 08/21/24 13:09 [place] % (Auto) 9.4 % 08/21/24 13:09 Eos % (Auto) 1.3 % 08/21/24 13:09 Baso % (Auto) 0.7 % 08/21/24 13:09 Neut # (Auto) 4.14 10^3/uL (1.8-7.7) 08/21/24 13:09 Lymph # (Auto) 0.6 10^3/uL (0.8-4.8) L 08/21/24 13:09 [place] # (Auto) 0.5 10^3/uL (0.2-0.9) 08/21/24 13:09 Eos # (Auto) 0.1 10^3/uL (0.0-0.8) 08/21/24 13:09 Baso # (Auto) 0.0 10^3/uL (0.0-0.1) 08/21/24 13:09 Nucleated RBC % (auto) 0 % 08/21/24 13:09 Nucleated RBCs # 0.0 /100WBC 08/21/24 13:09 PT 16.50 SECONDS (12.1-14.9) H 08/21/24 13:09 INR 1.24 (0.8-1.2) H 08/21/24 13:09 APTT 38.1 SECONDS (23.9-36.7) H 08/21/24 13:09 Sodium 149 mmol/L (136-145) H 08/21/24 13:09 Potassium 4.2 mmol/L (3.5-5.1) 08/21/24 13:09 Chloride 107 mmol/L (98-107) 08/21/24 13:09 Carbon Dioxide 32 mmol/L (22-29) H 08/21/24 13:09 Anion Gap 14.2 (5-19) 08/21/24 13:09 BUN 39 mg/dL (8-23) H 08/21/24 13:09 Creatinine 2.2 mg/dL (0.7-1.2) H 08/21/24 13:09 GFR Calculation Not Reportable 08/21/24 13:09 Glucose 91 mg/dL (65-115) 08/21/24 13:09 POC Glucose 86 mg/dL (70-110) 08/21/24 12:47 Calculated Osmolality 317 mOsm/kg (285-295) H 08/21/24 13:09 Calcium 8.8 mg/dL (8.5-10.5) 08/21/24 13:09 Total Bilirubin 1.8 mg/dL (0.15-1.2) H 08/21/24 13:09 AST 13 U/L (0-40) 08/21/24 13:09 ALT 13 U/L (0-41) 08/21/24 13:09 Alkaline Phosphatase 76 U/L (40-130) 08/21/24 13:09 Total Protein 6.4 g/dL (6.6-8.7) L 08/21/24 13:09 Albumin 3.3 g/dL (3.5-5.2) L 08/21/24 13:09 Globulin 3.1 g/dL (1.3-4.6) 08/21/24 13:09 All radiology interpretation(s) finalized by discharge Discharge Plan Discharge Condition: Stable Prescriptions: No Action omeprazole magnesium [Acid Sewing Machine Assembler (omeprazole)] 20 mg capsule,delayed release(DR/EC) 20 mg PO DAILY finasteride 5 mg tablet 5 mg PO DAILY atorvastatin 20 mg tablet 20 mg PO DAILY nitroglycerin 0.4 mg tablet, sublingual 0.4 mg sublingual Q5M PRN (Reason: chest pain) Qty: 30 5RF Rx Instructions: do not exceed 3 doses per episode isosorbide mononitrate 30 mg tablet extended release 24 hr 30 mg PO DAILY Qty: 90 0RF Eliquis 5 mg tablet 5 mg PO BID Qty: 180 3RF furosemide 40 mg tablet 40 mg PO DAILY Qty: 90 3RF tamsulosin 0.4 mg capsule 0.4 mg PO DAILY vitamin B complex Tablet 1 tab PO DAILY irbesartan 300 mg tablet 300 mg PO DAILY pregabalin 200 mg capsule 200 mg PO BID PRN (Reason: nerve pain) calcium citrate 250 mg calcium Tablet 250 mg PO DAILY magnesium oxide 400 mg (241.3 mg magnesium) Tablet 400 mg PO BID Qty: 60 0RF hydrocodone-acetaminophen 10-325 mg tablet 1 tab PO Q6H PRN (Reason: pain) Qty: 20 0RF Referrals: TWYLA BETANCOURT MD [Primary Care Provider] - Patient Instructions: Altered Mental Status (ED) Print Language: Sierra Leonean Coding Level of Care Code ED Flight Engineer Performance Qualified for Nicole Golden
[2024-08-21 13:18] LABS: Basophils % 0.7 %; Eosinophils # 0.1 10^3/uL (0.0-0.8); Eosinophils % 1.3 %; Hematocrit 48.9 % (37-53); Lymphocytes # 0.6 10^3/uL (0.8-4.8); Lymphocytes % 11.3 %; Mean Corpuscular HGB Conc 29.4 g/dL (30-55); Mean Corpuscular Hemoglobin 32.7 pg (27-33); Mean Corpuscular Volume 111.1 fl (82-101); Mean Platelet Volume 11.8 fL (7.4-10.4); Monocytes # 0.5 10^3/uL (0.2-0.9); Monocytes % 9.4 %; Neutrophils # 4.14 10^3/uL (1.8-7.7); Neutrophils % 76.7 %; Nucleated Red Blood Cells % 0 %; Platelet Count 159 10^3/cmm (157-399); Red Cell Distribution Width 17.8 % (12.1-15.1)
--- NOTE | 2024-08-21 13:23 | CTR_ITS ---
PROCEDURE INFORMATION: Exam: CTA Head With Contrast, Arteriography Exam date and time: 08/21/2024 1:38 PM Age: 73 years old Clinical indication: Speech disturbance and weakness; Additional info: CVA TECHNIQUE: Imaging protocol: Computed tomographic angiography of the head with contrast. Exam focused on the arteries. 3D rendering (Not supervised by radiologist): MIP and/or 3D reconstructed images were created by the technologist. Radiation optimization: All CT scans at this facility use at least one of these dose optimization techniques: automated exposure control; mA and/or kV adjustment per patient size (includes targeted exams where dose is matched to clinical indication); or iterative reconstruction. Contrast material: OMNI 350; Contrast volume: 100 ml; Contrast route: INTRAVENOUS (IV); COMPARISON: CT head thrombolytic [id number] 08/21/2024 12:50 PM RADIATION DOSE METRICS: Total DLP (mGy-cm): 494.7 FINDINGS: ANTERIOR CIRCULATION: Right internal carotid artery: Intracranial segment is patent with no significant stenosis. No aneurysm. Right middle cerebral artery: No occlusion or significant stenosis. No aneurysm. Right anterior cerebral artery: No occlusion or significant stenosis. No aneurysm. Left internal carotid artery: Intracranial segment is patent with no significant stenosis. No aneurysm. Left middle cerebral artery: No occlusion or significant stenosis. No aneurysm. Left anterior cerebral artery: No occlusion or significant stenosis. No aneurysm. POSTERIOR CIRCULATION: Right vertebral artery: Hypoplastic with multifocal stenoses, some of which appear severe, coronal images 87-91 of series 19. Left vertebral artery: Dominant. No occlusion or significant stenosis. No aneurysm. Basilar artery: No occlusion or significant stenosis. No aneurysm. Right posterior cerebral artery: origin. No occlusion or significant stenosis. No aneurysm. Left posterior cerebral artery: No occlusion or significant stenosis. No aneurysm. Brain: No definite mass, mass effect, or midline shift. Cerebral ventricles: No ventriculomegaly. Bones/joints: Unremarkable. No acute fracture. Soft tissues: Unremarkable. PROCEDURE INFORMATION: Exam: CTA Neck With Contrast Exam date and time: 08/21/2024 1:38 PM Age: 73 years old Clinical indication: Speech disturbance and weakness; Additional info: CVA TECHNIQUE: Imaging protocol: Computed tomographic angiography of the neck with contrast. Exam focused on the cervical segments of the vasculature. 3D rendering (Not supervised by radiologist): MIP and/or 3D reconstructed images were created by the technologist. Radiation optimization: All CT scans at this facility use at least one of these dose optimization techniques: automated exposure control; mA and/or kV adjustment per patient size (includes targeted exams where dose is matched to clinical indication); or iterative reconstruction. Contrast material: OMNI 350; Contrast volume: 100 ml; Contrast route: INTRAVENOUS (IV); COMPARISON: 1. CT cervical spin wo con* [id number] 10/16/2022 9:[address] [place] [id number] 10/16/2022 10:37 PM RADIATION DOSE METRICS: Total DLP (mGy-cm): 494.7 FINDINGS: Right common carotid artery: No stenosis. No dissection or occlusion. Right internal carotid artery: Mild stenosis of the proximal extracranial segment, approximately 20%. No dissection or occlusion. Right external carotid artery: No occlusion or stenosis of the origin. Left common carotid artery: No stenosis. No dissection or occlusion. Left internal carotid artery: No stenosis of the extracranial segment. No dissection or occlusion. Left external carotid artery: No occlusion or stenosis of the origin. Right vertebral artery: No stenosis. No dissection or occlusion. Left vertebral artery: No stenosis. No dissection or occlusion. Veins: Duplicated SVC. Soft tissues: Unremarkable. No significant soft tissue swelling. Bones/joints: No acute fracture. Multilevel, multifactorial degenerative changes along the spine. C4-6 ACDF. Lungs: Emphysematous change at the imaged upper lungs and mild biapical pleural-parenchymal scarring. 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 Dominant left vertebral artery and origin of right [employer]. IMPRESSION: Mild proximal right ICA stenosis. REFERENCES: NASCET CRITERIA. The degree of stenosis in the cervical segment of the internal carotid artery is based on NASCET criteria. Normal is no stenosis. Mild is less than 50% stenosis. Moderate is 50-69% stenosis. Severe is 70% to 99% stenosis. Total occlusion is no detectable patent lumen.
[2024-08-21 13:27] LABS: INR 1.24 (0.8-1.2)
[2024-08-21 13:28] LABS: Partial Thromboplastin Time 38.1 SECONDS (23.9-36.7)
[2024-08-21 13:32] LABS: Alanine Aminotransferase 13 U/L (0-41); Albumin Level 3.3 g/dL (3.5-5.2); Alkaline Phosphatase 76 U/L (40-130); Anion Gap 14.2 (5-19); Aspartate Amino Transferase 13 U/L (0-40); Blood Urea Nitrogen 39 mg/dL (8-23); Calcium 8.8 mg/dL (8.5-10.5); Carbon Dioxide 32 mmol/L (22-29); Chloride 107 mmol/L (98-107); Creatinine Clr Calc Pharmacy 32.3252; Globulin 3.1 g/dL (1.3-4.6); Glucose 91 mg/dL (65-115); Osmolality Calculated 317 mOsm/kg (285-295); Potassium 4.2 mmol/L (3.5-5.1); Sodium 149 mmol/L (136-145); Total Bilirubin 1.8 mg/dL (0.15-1.2); Total Protein 6.4 g/dL (6.6-8.7)
[2024-08-21] MEDS: iohexol 350 mg/mL 500 mL Btl (per mL) IV (13:45)
[2024-08-21] MEDS: sodium chloride 0.9% 1,000 ML 999 ML IV (13:58)
--- NOTE | 2024-08-21 14:27 | MRR_ITS ---
PROCEDURE INFORMATION: Exam: MR Lumbar Spine Without Contrast Exam date and time: 08/21/2024 3:07 PM Age: 73 years old Clinical indication: Weakness; Additional info: Bilateral lower extremity weakness TECHNIQUE: Imaging protocol: Magnetic resonance imaging of the lumbar spine without contrast. COMPARISON: 1. CR XR lumbar spine 2-3V* [id number] 07/11/2023 10:[address] [place] [id number] 10/16/2022 10:37 PM FINDINGS: Bones/joints: No acute fracture. Mild dextroconvex lumbar spine curvature. Edematous endplate change at T12-L1. Otherwise multilevel fatty endplate change along the lumbar spine from L1-S1. Mineralized L4-L5 intervertebral disc. Mild intradiscal fluid at the right L5-S1 intervertebral disc. Spinal cord: Indentation on the spinal cord at the T11-12 level. Crowding of the cauda equina nerve roots at the L4-L5 level. T11-T12: Sagittal only images acquired. Mild disc bulge, bilateral ligamentum flavum thickening and facet arthrosis result in moderate spinal canal stenosis measuring 6 mm in AP dimension with associated mild AP flattening of the thecal sac and spinal cord without cord signal abnormality. Moderate [id number]-left neural foraminal stenosis. T12-L1: Mild disc bulge without significant spinal canal or neural foraminal stenosis. L1-L2: Symmetric disc bulge and bilateral facet arthrosis without significant spinal canal or neural foraminal stenosis. No significant spinal canal stenosis. L2-L3: Asymmetric left disc bulge and bilateral facet arthrosis encroach on the [id number]-[id number]-right subarticular recesses and cause [id number] left neural foraminal stenosis. No significant right neural foraminal stenosis. No severe spinal canal stenosis. L3-L4: Symmetric disc bulge combined with left ligamentum flavum thickening and bilateral facet arthrosis encroach on the subarticular recesses and cause moderate to severe left and mild right neural foraminal stenosis. Moderate spinal canal stenosis. L4-L5: Symmetric disc bulge with bilateral facet arthrosis encroach on the subarticular recesses and cause severe right and moderate to severe left neural foraminal stenosis. Moderate spinal canal stenosis. L5-S1: Asymmetric right disc bulge combined with bilateral ligamentum flavum thickening and facet arthrosis result in effacement of the right subarticular recess and encroachment on the left subarticular recess with severe right neural foraminal stenosis and mild left neural foraminal stenosis. Moderate spinal canal stenosis. Soft tissues: Unremarkable. Kidneys and ureters: Bilateral T2 hyperintense renal cysts. MR/MR lumbar spine wo con* [id number] IMPRESSION: 1. Multilevel, multifactorial lumbar spine degenerative changes with severe right neural foraminal stenosis at L4-L5 and L5-S1, moderate to severe left neural foraminal stenosis at L3-L4 and L4-L5, and effacement of the right subarticular recess at L5-S1. Moderate spinal canal stenosis from L3-S1. 2. T11-12 moderate spinal canal and bilateral neural foraminal stenosis.
[2024-08-21] MEDS: aspirin 81 mg Chew Tablet 324 MG PO (14:45)
--- NOTE | 2024-08-21 16:19 | XRR_ITS ---
PROCEDURE INFORMATION: Exam: XR Chest Exam date and time: 08/21/2024 4:48 PM Age: 73 years old Clinical indication: Cough TECHNIQUE: Imaging protocol: Radiologic exam of the chest. Views: 1 view. COMPARISON: [place] [id number] 10/16/2022 10:37 PM FINDINGS: Lungs: Patient rotation. Unremarkable. No consolidation. Pleural spaces: Unremarkable. No pleural effusion. No pneumothorax. Heart/Mediastinum: Cardiomegaly. Bones/joints: Degenerative changes along the spine and shoulders. Lower cervical spine fusion hardware. XR/XR chest 1V portable [id number] IMPRESSION: No acute findings.
--- NOTE | 2024-08-21 16:22 | USCV_ITS ---
[place] Age: 73 Gender: M : 1950 Exam Date: 08/21/2024 17:46 Ordering Phys: Jonel Sánchez MD Technologist: DAMION Exam Location: [facility] – [place] Indication: afib BP: 136 / 86 HR: 84 Rhythm: Atrial fibrillation Technical Quality: Adequate MEASUREMENTS (Male / Female) Normal Values 2D ECHO LV Diastolic Diameter PLAX 4.2 cm 4.2 - 5.9 / 3.9 - 5.3 cm IVS Diastolic Thickness 1.2 cm 0.6 - 1.0 / 0.6 - 0.9 cm IVS Systolic Thickness 1.4 cm LVPW Diastolic Thickness 1.3 cm 0.6 - 1.0 / 0.6 - 0.9 cm LVPW Systolic Thickness 2.0 cm LVOT Diameter 2.1 cm LV Ejection Fraction 2D Teich 48.6 % LV Ejection Fraction MOD 4C 55.1 % LV Ejection Fraction MOD 2C 56.2 % LV Ejection Fraction 2C AL 56.5 % LA Diameter 4.9 cm RA Systolic Volume 4C AL 89.3 ml RA Systolic Volume 4C MOD 89.8 ml LA Sys Volume AL 82.4 cm cubed LA Sys Volume Index AL 38.2 cm cubed/m squared Aorta at Sinotubular Diameter 2.7 cm IVC Diameter 1.9 cm M-MODE LA Ao Ratio MM 1.0 AV Cusp Separation MM 2.1 cm DOPPLER AV Peak Velocity 119.0 cm/s LVOT Peak Velocity 106.0 cm/s AV Area Cont Eq vti 3.0 cm squared AV Area Cont Eq pk 3.1 cm squared MV Peak Velocity 112.0 cm/s MV Area PHT 4.0 cm squared Mitral E to A Ratio 619.0 TV Peak Velocity 276.5 cm/s TR Peak Velocity 286.0 cm/s TR Peak Gradient 32.7 mmHg TR Mean Velocity 224.0 cm/s TR Mean Gradient 21.8 mmHg TR Velocity Time Integral 66.8 cm PV Peak Velocity 84.7 cm/s RV Ejection Time 0.2 s FINDINGS Left Ventricle Left ventricle is normal size. LV systolic function is mildly reduced with EF of 40-45%. Mild global hypokinesis Right Ventricle Normal in size and function Right Atrium Dilated Left Atrium Dilated Mitral Valve Structurally normal mitral valve. Mild mitral regurgitation Aortic Valve Structurally normal aortic valve. No significant stenosis or regurgitation. Tricuspid Valve Mild tricuspid regurgitation. Pulmonary artery systolic pressure is normal. Pulmonic Valve Trace pulmonic regurgitation Pericardium Small pericardial effusion Aorta Normal in size IVC Normal in size CONCLUSIONS LV systolic function is mildly reduced with EF of 40-45% Biatrial dilation Mild mitral regurgitation Mild tricuspid regurgitation Trace pulmonic regurgitation Small pericardial effusion Compared to prior echocardiogram from 2022, patient has mildly reduced LV systolic function and has small sized pericardial effusion. Shane Baker MD (Electronically Signed) Final Date: 22 August 2024 11:46 S
--- NOTE | 2024-08-21 16:28 | P.HP_ITS ---
Providers/Chief Complaint 2 Primary Care Provider: TWYLA BETANCOURT MD Chief Complaint: dysphasia History of Present Illness 73-year-old male with a past medical history of atrial fibrillation, hypertension, hypercholesterolemia, diabetes mellitus (not on medication), transient ischemic attacks (TIAs), coronary artery disease, left knee replacement, benign prostatic hyperplasia (BPH), gastric ulcer, anemia, history of gastrointestinal bleed, erectile dysfunction, kidney stones, and chronic kidney disease presents with acute onset of weakness and slurred speech. Symptoms began last night around 9:30 PM after the Patient got off a boat. Neighbors noted slurred speech and difficulty moving his legs. The Patient stated, I couldn't move my legs. This morning, neighbors again noted slurred speech. The Patient also reports new-onset bilateral hand weakness, causing him to drop objects. He denies any unilateral weakness. The Patient reports chronic back pain radiating down his left leg. He uses a cane due to chronic left knee problems. He denies recent fever, chills, or respiratory symptoms. He reports possible hematuria but denies hematochezia. Medications/Allergies Home Medications ?Medication ?Instructions ?Recorded ?Confirmed ?Last Taken ?Type isosorbide mononitrate 30 mg 30 mg PO DAILY #90 tabs 0 09/22/19 08/21/24 Unknown Rx tablet,extended release 24 hr atorvastatin 20 mg tablet 20 mg PO DAILY 01/24/2107/25 Unknown History finasteride 5 mg tablet 5 mg PO DAILY 01/24/2108/21 Unknown History omeprazole magnesium 20 mg 20 mg PO DAILY 01/24/21 Unknown History capsule,delayed release (Acid Community Arts Officer (omeprazole)) hydrocodone 10 mg-acetaminophen 1 tab PO Q6H PRN pain #20 tabs 10/22/22 08/21/24 Unknown Rx 325 mg tablet magnesium oxide 400 mg (241.3 mg 400 mg PO BID #60 tab s 10/22/22 08/21/24 Unknown Rx magnesium) tablet nitroglycerin 0.4 mg sublingual 0.4 mg sublingual Q5M PRN chest 10/23/23 08/21/24 Unknown Rx tablet pain #30 tabs apixaban 5 mg tablet (Eliquis) 5 mg PO BID #180 tabs 0 06/23/24 08/21/24 Unknown Rx furosemide 40 mg tablet 40 mg PO DAILY Edema #90 tab s 06/23/24 08/21/24 Unknown Rx calcium citrate 250 mg PO DAILY 08/21/24 Unknown History irbesartan 300 mg tablet 300 mg PO DAILY 08/21/24 Unknown History pregabalin 200 mg capsule 200 mg PO BID PRN nerve pain 08/21/24 08/21/24 Unknown History tamsulosin 0.4 mg capsule 0.4 mg PO DAILY 08/21/24 Unknown History vitamin B complex 1 tab PO DAILY 08/21/2407/25 Unknown History Allergies Allergy/AdvReac Type Severity Reaction Status Date / Time No Known Allergies Allergy Verified 04/28/24 13:47 PFSH Acute 2 PFSH: Medical History CAD (coronary artery disease) Atrial fibrillation History of [place] (myocardial infarction) History of TIA (transient ischemic attack) Diabetes mellitus HTN (hypertension) Hypercholesterolemia Surgical History Status post left knee replacement S/P PTCA (percutaneous transluminal coronary angioplasty) Family History Father Stroke Diabetes Hypertension Mother Stroke Hypertension Brother Diabetes Hypertension Sister Diabetes Chronic kidney disease (CKD) Hypertension Social History Smoking and tobacco/nicotine status: former use of tobacco/nicotine Vitals/I&O/Wt Last Vital Signs Temp 97.9 F 08/21/24 12:33 Pulse 105 H 08/21/24 12:33 Resp 16 08/21/24 12:33 BP 134/92 08/21/24 12:33 Pulse Ox 82 L 08/21/24 12:33 O2 Del Method Room Air 08/21/24 12:33 Weight last 48 hrs Weight 94.801 kg Physical Exam 2 Narrative: - General: Alert and oriented - Speech: Possible mild slurring - Cranial Nerves: Possible subtle left-s ided facial droop. Tongue deviates to the left. - Motor: - Upper extremities: Equal bilateral strength. Enroller strength intact bilaterally. Able to push and pull against resistance. Patient drops objects. - Lower extremities: Able to bend at knees. Unable to lift legs when supine. Can move legs at knees when seated. - Gait: Unable to assess due to weakness . Patient uses a cane due to chronic left knee problems. - CVS: RRR, no obvious murmurs - Chest: CTABL - Abdomen: Soft - Extremity - Mild b/l LE edema Data 08/21/24 13:09 08/21/24 13:09 A&P Assessment and plan (1) Atrial fibrillation: Qualifiers: Atrial fibrillation type: unspecified Qualified Code(s): I48.91 - Unspecified atrial fibrillation (2) Neurological symptoms: (3) Weakness: (4) CHF (congestive heart failure): Qualifiers: Heart failure chronicity: unspecified Heart failure type: unspecified Qualified Code(s): I50.9 - Heart failure, unspecified (5) CAD (coronary artery disease): (6) Diabetes mellitus: Qualifiers: Diabetes mellitus type: type 2 Diabetes mellitus long term care phlebotomist insulin use: without long term care phlebotomist use Diabetes mellitus complication status: with kidney complications Diabetes mellitus complication detail: with chronic kidney disease Chronic kidney disease stage: stage 3 (moderate) Chronic kidney disease stage 3 subtype: stage 3a (GFR 45-59) Qualified Code(s): E11.22 - Type 2 diabetes mellitus with diabetic chronic kidney disease; N18.31 - Chronic kidney disease, stage 3a (7) HTN (hypertension): Qualifiers: Hypertension type: primary hypertension Qualified Code(s): I10 - Essential (primary) hypertension (8) Hypercholesterolemia: Plan 73-year-old male with extensive vascular comorbidities (atrial fibrillation on apixaban, hypertension, hypercholesterolemia, diabetes, prior TIAs, CAD, CKD) presenting with acute onset of slurred speech, bilateral hand weakness, and lower extremity weakness beginning approximately 24 hours ago. Imaging reveals vertebral artery stenosis with no acute intracranial findings on CT. Symptoms and vascular imaging suggest possible posterior circulation ischemia. Patient also reports possible hematuria. Not able to fully assess his gait. Acute Neurological Symptoms - Patient presents with acute onset slurred speech, bilateral hand weakness, and lower extremity weakness with possible subtle left facial droop. Given vascular risk factors and imaging findings showing vertebral artery stenosis, posterior circulation ischemia is the leading concern, though spinal stenosis may contribute to lower extremity symptoms. He does not have any dizziness. He is a poor historian. At time stated symptoms started last night, however later stated they have been going on for some time. 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 Plan: MRI brain w/o contrast Continuous cardiac telemetry Echocardiogram Hemoglobin A1c Lipid panel in am Neurology recommended to hold eliquis per ER? S/p Asa in ER. Unclear as to why. Permissive hypertension for next 24-48hr Increase atorvastatin to [address]/PT/OT consult Neuro-checks Fall precautions Possible Hematuria - Patient reports possible hematuria, requiring evaluation in context of anticoagulation therapy. He could not provide details. Plan: Urinalysis with microscopy Urine culture if indicated Monitor for gross hematuria or significant blood loss Adjust anticoagulation if significant bleeding confirmed Atrial Fibrillation - Chronic atrial fibrillation on apixaban - Holding apixaban 5 mg twice daily as per neuro recommendation Plan: If no bleeding and MRI brain can likely restart Follow upon echo Chronic Kidney Disease - Baseline creatinine 1.7 mg/dL with current elevation to 2.2 mg/dL, suggesting [id number] kidney injury. Plan: Monitor urine output Monitor electrolytes and renal function Hypernatremia Sodium 149 mEq/L, likely related to dehydration. Tx: Cautious hydration, holding diuretics Spinal Stenosis Moderate spinal canal stenosis L3-S1 may contribute to lower extremity symptoms. No evidence of cord compression Plan: Physical therapy consultation once acute neurological issues stabilized Hypercholesterolemia - Continue atorvastatin Benign Prostatic Hyperplasia - Continue finasteride 5 mg daily Gastric Ulcer/History of GI Bleed - Continue omeprazole 20 mg daily - Monitor for signs of GI bleeding while on anticoagulation PDMP PDMP Reviewed: Not Reviewed Attestations 2 Medical Necessity Statement*: Patient requires hospitalization for further work up of neurological symptoms. Coding Level of Care Code Acute Code for [facility] Fwd Diagnoses Atrial fibrillation, unspecified type I48.91 Atrial fibrillation type: unspecified Neurological symptoms R29.90 Weakness R53.1 Congestive heart failure, unspecified HF chronicity, unspecified heart failure type I50.9 Heart failure chronicity: unspecified Heart failure type: unspecified CAD (coronary artery disease) I25.10 Type 2 diabetes mellitus with stage 3a chronic kidney disease, without long-term current use of insulin E11.22; N18.31 Diabetes mellitus type: type 2 Diabetes mellitus long term care phlebotomist insulin use: without long-term use Diabetes mellitus complication status: with kidney complications Diabetes mellitus complication detail: with chronic kidney disease Chronic kidney disease stage: stage 3 (moderate) Chronic kidney disease stage 3 subtype: stage 3a (GFR 45-59) Primary hypertension I10 Hypertension type: primary hypertension Hypercholesterolemia E78.00
--- NOTE | 2024-08-21 16:32 | ECG_ITS ---
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1950 Requested By: Jonel Sánchez Order Number: [id number] Lily MD: JAIRO FELICIANO Measurements Intervals [place] Rate: 105 P: 0 HI: 0 QRS: 142 QRSD: 97 T: -66 QT: 334 QTc: 442 Interpretive Statements ATRIAL FIBRILLATION WITH RAPID VENTRICULAR RESPONSE WITH ABERRANT CONDUCTION OR VENTRICULAR PREMATURE COMPLEXES RIGHT AXIS DEVIATION [QRS AXIS > 100] LOW QRS VOLTAGE IN EXTREMITY LEADS [QRS DEFLECTION < 0.5 mV IN LIMB LEADS] PATTERN CONSISTENT WITH PULMONARY DISEASE SEPTAL MYOCARDIAL INFARCTION , PROBABLY OLD [40+ ms Q WAVE IN V1/V2] Compared to ECG 08/21/2024 13:16:13 Right-axis deviation now present Low QRS voltage now present Myocardial infarct finding still present Electronically Signed On 08-29-2024 21:39:39 CDT by JAIRO FELICIANO [id number] [id number]
[2024-08-21 16:43] LABS: Creatine Phosphokinase 35 U/L (39-308)
[2024-08-21 17:09] LABS: Troponin(5th) Baseline 113 ng/L (0-15)
[2024-08-21 17:46] LABS: Add Urine Microscopic? NO
[2024-08-21 17:48] LABS: Glucose Urine UA Norm (Normal); Ketones Urine Negative (Negative); Protein Urine Trace (Negative); Urine Appearance Clear (CLEAR); Urine Color Yellow (Yellow); pH Urine 5 (5-7)
[2024-08-21 17:49] LABS: Bilirubin Urine 1+ (Negative); Blood Urine 2+ (Negative); Charge for UA Resulting for Rev; Leukocyte Esterase Urine Trace (Negative); Nitrate Urine Negative (Negative); Urobilinogen Urine 4 mg/dL (Negative)
[2024-08-21 17:52] LABS: Bacteria Urine 4+ /hpf; Hyaline Casts Urine 15.28 /lpf; Squamous Epithelial Cell Urine 0-5 /hpf (0-5); WBC Urine 21-50 /hpf (0-5)
[2024-08-21 18:01] LABS: Amphetamines Screen Urine Negative (Negative); Barbiturates Screen Urine Negative (Negative); Benzodiazepines Screen Urine Negative (Negative); Cocaine Screen Urine Negative (Negative); Opiate Screen Urine Positive (Negative); PCP Screen Urine Negative (Negative); THC Screen Urine Negative (Negative)
[2024-08-21 18:08] LABS: Add Urine Culture? Yes; UA Slide Review UA Slide Review Perf
[2024-08-21 18:50] LABS: Troponin 5 2HR Delta -1.1 ABS# (0-10)
[2024-08-21 18:52] LABS: Troponin 5 2HR 111.9 ng/L (0-15)
[2024-08-21] MEDS: lactated ringers 500 ML 999 ML IV (21:02)
[2024-08-21] MEDS: atorvastatin 40 mg Tablet 80 MG PO (21:03)
[2024-08-21 21:15] LABS: Glucose Point of Care 210 mg/dL (70-110)
[2024-08-21] MEDS: insulin lispro 100 unit/1 mL SUBCUT (21:32)
[2024-08-21 22:46] LABS: Troponin 5 6HR 101.1 ng/L (0-15); Troponin 5 6HR Delta -11.9 ng/L (0-12)
[2024-08-22] VITALS (12 sets, daily range): BP systolic 105–174; BP diastolic 66–92; PULSE 75–129; RESP 16–20; TEMP 36.6–36.8; O2SAT 93–96
[2024-08-22 05:41] LABS: Chol HDL Ratio 2.88 mg/dL (1.0-5.00); Cholesterol 69 mg/dL (0-200); HDL Cholesterol 24 mg/dL (60-100); LDL Cholesterol Calculated 31 mg/dL (50-129); LDL HDL Ratio 1.29 RATIO (0.00-3.22); Triglycerides 72 mg/dL (0-150)
[2024-08-22 05:51] LABS: Estmated Average Glucose 105; Hemoglobin A1C 5.3 % (4.0-6.0)
[2024-08-22 06:38] LABS: Glucose Point of Care 92 mg/dL (70-110)
[2024-08-22] MEDS: finasteride 5 mg Tablet PO (08:01)
[2024-08-22] MEDS: tamsulosin 0.4 mg Capsule PO (08:01)
[2024-08-22 11:12] LABS: Glucose Point of Care 98 mg/dL (70-110)
--- NOTE | 2024-08-22 11:52 | MRR_ITS ---
PROCEDURE INFORMATION: Exam: MR Head Without Contrast Exam date and time: 08/22/2024 12:34 PM Age: 73 years old Clinical indication: Altered mental status/memory loss; Confusion or disorientation; Additional info: Stroke symptoms TECHNIQUE: Imaging protocol: Magnetic resonance imaging of the head without contrast. COMPARISON: CT angio headneck* [id number] 08/21/2024 1:38 PM FINDINGS: Brain: Mild atrophic or involutional change/volume loss. The axial T2 FLAIR images demonstrate mild bilateral periventricular high signal intensity suggestive of chronic small-vessel disease change. Diffusion weighted images with ADC demonstrates area of mild restricted diffusion mid superior right parietal level around the islas white matter junction. Findings are consistent with mild recent ischemic infarct, not visualized or apparent on noncontrast CT head 1 day ago. No signal change to indicate intracranial hemorrhage or hematoma. No mass effect or shift of midline structures. Craniocervical junction, sella, and cerebellopontine angles appear unremarkable. Major vascular flow voids noted. Cerebral ventricles: No ventriculomegaly. Bones: Unremarkable. Paranasal sinuses: Unremarkable as visualized. No acute sinusitis. Mastoid air cells: Unremarkable as visualized. No mastoid effusion. Orbital cavities: Unremarkable. Soft tissues: Unremarkable. MR/MR head wo con* [id number] IMPRESSION: 1. A mild area of restricted diffusion at the mid superior right parietal level around the islas-white matter junction region consistent with mild recent ischemic infarct (not visualized or apparent on noncontrast CT head 1 day ago). 2. Exam is otherwise negative. No hemorrhage or mass effect.
[2024-08-22 11:54] LABS: Basophils % 0.6 %; Eosinophils # 0.1 10^3/uL (0.0-0.8); Eosinophils % 1.3 %; Hematocrit 44.6 % (37-53); Lymphocytes # 0.5 10^3/uL (0.8-4.8); Lymphocytes % 9.8 %; Mean Corpuscular HGB Conc 29.1 g/dL (30-55); Mean Corpuscular Hemoglobin 32.7 pg (27-33); Mean Corpuscular Volume 112.3 fl (82-101); Monocytes # 0.4 10^3/uL (0.2-0.9); Monocytes % 8.1 %; Neutrophils # 3.73 10^3/uL (1.8-7.7); Neutrophils % 77.7 %; Nucleated Red Blood Cells % 0.4 %; Platelet Count 100 10^3/cmm (157-399); Red Blood Count 3.97 10^6/uL (3.85-5.65); Red Cell Distribution Width 17.8 % (12.1-15.1)
[2024-08-22 12:11] LABS: Alanine Aminotransferase 11 U/L (0-41); Albumin Level 2.9 g/dL (3.5-5.2); Alkaline Phosphatase 73 U/L (40-130); Anion Gap 13.6 (5-19); Aspartate Amino Transferase 13 U/L (0-40); Blood Urea Nitrogen 28 mg/dL (8-23); Calcium 8.2 mg/dL (8.5-10.5); Carbon Dioxide 28 mmol/L (22-29); Chloride 111 mmol/L (98-107); Creatinine Clr Calc Pharmacy 43.3973; Globulin 2.5 g/dL (1.3-4.6); Glucose 88 mg/dL (65-115); Osmolality Calculated 313 mOsm/kg (285-295); Potassium 3.6 mmol/L (3.5-5.1); Sodium 149 mmol/L (136-145); Total Bilirubin 1.1 mg/dL (0.15-1.2); Total Protein 5.4 g/dL (6.6-8.7)
[2024-08-22 13:12] LABS: Troponin T (5th) Once 103 ng/L (0-15)
--- NOTE | 2024-08-22 15:06 | PM.PN ---
Subjective Subjective: 73-year-old male with a past medical history of atrial fibrillation, hypertension, hypercholesterolemia, diabetes mellitus (not on medication), transient ischemic attacks (TIAs), coronary artery disease, left knee replacement, benign prostatic hyperplasia (BPH), gastric ulcer, anemia, history of gastrointestinal bleed, erectile dysfunction, kidney stones, and chronic kidney disease presents with acute onset of weakness and slurred speech. Symptoms began last night around 9:30 PM after the Patient got off a boat. Neighbors noted slurred speech and difficulty moving his legs. The Patient stated, I couldn't move my legs. This morning, neighbors again noted slurred speech. The Patient also reports new-onset bilateral hand weakness, causing him to drop objects. He denies any unilateral weakness. The Patient reports chronic back pain radiating down his left leg. He uses a cane due to chronic left knee problems. He denies recent fever, chills, or respiratory symptoms. He reports possible hematuria but denies hematochezia. Today was feeling better. Vitals/I&O/Wt Last Vital Signs Temp 98.3 F 08/22/24 11:19 Pulse 75 08/22/24 11:44 Resp 18 08/22/24 11:19 BP 125/87 08/22/24 11:19 Pulse Ox 94 08/22/24 11:44 O2 Del Method Nasal Cannula 08/22/24 11:44 O2 Flow Rate 3 08/22/24 11:44 08/22/24 08/22/24 08/22/24 06:59 14:59 22:59 Intake Total 480 / 480 Output Total 450 / 450 Balance Weight last 48 hrs Weight 90.22 kg Weight 91.354 kg Weight 94.801 kg Physical Exam Narrative: - General: Alert and oriented - Speech: Possible mild slurring - Cranial Nerves: Possible subtle left-sided facial droop. Tongue deviates to the left. - Motor: - Upper extremities: Equal bilateral strength. 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 Able to push and pull against resistance. Patient drops objects. - Lower extremities: Able to bend at knees. Unable to lift legs when supine. Can move legs at knees when seated. - Gait: Unable to assess due to weakness. Patient uses a cane due to chronic left knee problems. - CVS: RRR, no obvious murmurs - Chest: CTABL - Abdomen: Soft - Extremity - Mild b/l LE edema Data 08/22/24 11:33 08/22/24 11:33 A&P Assessment and plan (1) Atrial fibrillation: Qualifiers: Atrial fibrillation type: unspecified Qualified Code(s): I48.91 - Unspecified atrial fibrillation (2) Neurological symptoms: (3) Weakness: (4) CHF (congestive heart failure): Qualifiers: Heart failure chronicity: unspecified Heart failure type: unspecified Qualified Code(s): I50.9 - Heart failure, unspecified (5) CAD (coronary artery disease): (6) Diabetes mellitus: Qualifiers: Diabetes mellitus type: type 2 Diabetes mellitus correction insulin use: without naphtha washing system operator use Diabetes mellitus complication status: with kidney complications Diabetes mellitus complication detail: with chronic kidney disease Chronic kidney disease stage: stage 3 (moderate) Chronic kidney disease stage 3 subtype: stage 3a (GFR 45-59) Qualified Code(s): E11.22 - Type 2 diabetes mellitus with diabetic chronic kidney disease; N18.31 - Chronic kidney disease, stage 3a (7) HTN (hypertension): Qualifiers: Hypertension type: primary hypertension Qualified Code(s): I10 - Essential (primary) hypertension (8) Hypercholesterolemia: Plan 73-year-old male with extensive cardiovascular history (atrial fibrillation, hypertension, hypercholesterolemia, CAD, TIAs) and CKD who presented with acute onset of slurred speech and bilateral limb weakness. MRI confirmed a mild recent ischemic infarct in the right parietal region. Patient has improved clinically to baseline. Additional findings include hypernatremia, worsened EF (45%), and urinary tract infection. Patient has been transitioned from Eliquis to heparin drip with lexiscan planned for tomorrow. # Acute Ischemic Stroke - Presenting symptoms of slurred speech and bilateral weakness. 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 - Patient has returned to baseline neurologically. - MRI confirms a mild recent ischemic infarct in the right parietal region - S/P Aspirn 325 mg PO x 1 on , now on 81 mg daily - Lipitor 80 mg daily was started however dose decreased based on lipid panel today - Continue neuro checks / NIH as ordered - PT/OT consult pending - ECHO noted newly found HF noted below - Currenlty on heparin drip - Risk factor modification. Will resume anti-hypertensive as tolerated # Atrial Fibrillation with Suboptimal Anticoagulation? - Patient with known atrial fibrillation who suffered an ischemic stroke despite presumed anticoagulation with Eliquis likely due to medication non-adherence, or stroke from alternative etiology. Plan: - Continue to monitor on tele - Echo noted below - Holding eliquis for now - Continue heparin drip # Newly Reduced Ejection Fraction (45%) - New finding of reduced EF to 45% from previously normal in 2022, with downtrending troponin suggesting possible recent cardiac injury. No active chest pain. Plan: Lexiscan as planned to evaluate for ischemia Initiate guideline-directed medical therapy for HFrEF: - Beta-grace following stress - Will start KAREN-inhibitor once stable renal funciton - Also will consider aldactone and SGLT2 at discharge # Urinary Tract Infection - Urinalysis showing pyuria (21-50 WBCs) and 4+ bacteria, with trace leukocyte esterase. Plan: - Urine culture to identify organism and sensitivities - Ceftriaxone 1g IV daily - Adjust antibiotics based on culture results # Chronic Kidney Disease - Baseline creatinine 1.7 mg/dL with acute increase to 2.2 mg/dL, now improved to 1.6 mg/dL. Hypernatremia (149 mEq/L) also present. Dx: - Monitor renal function daily - Adjust medication doses for renal function - Avoid nephrotoxic agents - Correct hypernatremia with free water replacement ( Cautious IV hydration ) # Thrombocytopenia - count decreased from 159 to 100, with history of chronic thrombocytopenia noted. Plan: - Monitor CBC dailys - Continue heparin with close monitoring for bleeding Chronic Problems # Benign Prostatic Hyperplasia - Continue home medications for BPH # Chronic Back Pain - Continue pain management with non-opioid analgesics as tolerated - Physical therapy consultation for strengthening exercises # Spinal Stenosis - Moderate spinal canal stenosis L3-S1 may contribute to lower extremity symptoms. No evidence of cord compression - Physical therapy consultation once acute neurological issues stabilized #Hypercholesterolemia - Continue atorvastatin #Gastric Ulcer/History of GI Bleed - Continue omeprazole 20 mg daily - Monitor for signs of GI bleeding while on anticoagulation PDMP PDMP Reviewed: Not Reviewed Attestations Medical Necessity Statement*: Patient requires hospitalization for further work up of neurological symptoms. Coding Level of Care Code Acute Code for [facility] Fwd Diagnoses Atrial fibrillation, unspecified type I48.91 Atrial fibrillation type: unspecified Neurological symptoms R29.90 Weakness R53.1 Congestive heart failure, unspecified HF chronicity, unspecified heart failure type I50.9 Heart failure chronicity: unspecified Heart failure type: unspecified CAD (coronary artery disease) I25.10 Type 2 diabetes mellitus with stage 3a chronic kidney disease, without long-term current use of insulin E11.22; N18.31 Diabetes mellitus type: type 2 Diabetes mellitus correction insulin use: without naphtha washing system operator use Diabetes mellitus complication status: with kidney complications Diabetes mellitus complication detail: with chronic kidney disease Chronic kidney disease stage: stage 3 (moderate) Chronic kidney disease stage 3 subtype: stage 3a (GFR 45-59) Primary hypertension I10 Hypertension type: primary hypertension Hypercholesterolemia E78.00
--- NOTE | 2024-08-22 15:34 | ECG_ITS ---
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 The perfusion scan will be documented separately. DATA: Baseline heart rate was 112 beats per minute. Baseline blood pressure was 105/84 millimeters of mercury. Target heart rate was 146. Maximum heart rate achieved was 143. which was 97 % of the predicted target heart rate. Maximum blood pressure was 122/84 millimeters of mercury. The reason for ending the test was completion of the protocol. The patient did not experience any symptoms. ELECTROCARDIOGRAM: Baseline: Atrial fibrillation. Right axis. Otherwise, no ST-T changes suggestive of ischemia noted. No arrhythmia noted. EXERCISE: After Lexiscan injection, no ST-T changes suggestive of ischemic noted. No arrhythmia noted. CONCLUSION: Please note due to baseline abnormality of the EKG specificity and sensitivity of the EKG portion of LexiScan MIBI stress test will be low 1. EKG not suggestive of ischemia 2. Lexiscan injection unremarkable. 3. Perfusion scan will be documented separately. Electronically Signed On 09-06-2024 20:30:10 CDT by JAIRO FELICIANO [id number] [id number]
[2024-08-22] MEDS: cefTRIAXone 1,000 mg SDV 1000 MG IVP (16:03)
[2024-08-22 16:38] LABS: Glucose Point of Care 93 mg/dL (70-110)
[2024-08-22] MEDS: heparin 5,000 unit/mL INJ 1 mL IVP (17:17)
[2024-08-22] MEDS: dextrose 5% 1,000 ML 50 ML IV (17:17)
[2024-08-22] MEDS: heparin drip 25,000 UNIT/500 ML PREMIX 25 UNIT IV (17:19)
[2024-08-22] MEDS: atorvastatin 40 mg Tablet PO (20:20)
[2024-08-22 20:48] LABS: Glucose Point of Care 133 mg/dL (70-110)
--- NOTE | 2024-08-22 21:05 | ECG_ITS ---
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 Measurements Intervals [place] Rate: 118 P: 0 DC: 0 QRS: 119 QRSD: 96 T: -41 QT: 300 QTc: 422 Interpretive Statements ATRIAL FIBRILLATION WITH RAPID VENTRICULAR RESPONSE WITH ABERRANT CONDUCTION OR VENTRICULAR PREMATURE COMPLEXES RIGHT AXIS DEVIATION [QRS AXIS > 100] LOW QRS VOLTAGE IN EXTREMITY LEADS [QRS DEFLECTION < 0.5 mV IN LIMB LEADS] PATTERN CONSISTENT WITH PULMONARY DISEASE MINIMAL ST DEPRESSION [0.025+ mV ST DEPRESSION] ABNORMAL QRS-T ANGLE [QRS-T AXIS DIFFERENCE > 60] Compared to ECG 08/21/2024 16:32:50 ST (T wave) deviation now present Myocardial infarct finding no longer present Electronically Signed On 08-28-2024 18:40:04 CDT by Shane Baker M.D. [email or web address] [id number]
[2024-08-22] MEDS: morphine 4 mg/mL SDV 1 mL 2 MG IVP (22:48)
[2024-08-22] MEDS: aspirin 81 mg Chew Tablet 162 MG PO (22:49)
[2024-08-22 22:58] LABS: Troponin(5th) Baseline 92 ng/L (0-15)
[2024-08-22 23:02] LABS: Partial Thromboplastin Time 112.3 SECONDS (23.9-36.7)
--- NOTE | 2024-08-22 23:11 | XRR_ITS ---
PROCEDURE INFORMATION: Exam: XR Chest Exam date and time: 08/22/2024 10:14 PM Age: 73 years old Clinical indication: Expiratory wheezing; Lung crackles TECHNIQUE: Imaging protocol: Radiologic exam of the chest. Views: 1 view. COMPARISON: CR (CHEST, ) 08/21/2024 4:48 PM FINDINGS: Lungs: Right hilar to lower lobe airspace infiltrate suspected, consider correlation with chest CT. Pleural spaces: Unremarkable. No pleural effusion. No pneumothorax. Heart/Mediastinum: Cardiomegaly. Bones/joints: Unremarkable. XR/XR chest 1V portable [id number] IMPRESSION: 1. Right hilar to lower lobe airspace infiltrate suspected, consider correlation with chest CT. 2. Cardiomegaly.
--- NOTE | 2024-08-22 23:12 | P.MISC_ITS ---
Miscellaneous Note Note: I was sent a voalte message by the patien's night nurse that the patient complained of chest pain and was tachycardic w/ HR in the 120 to 130s. An EKG was ordered ta showed Afib w/ RVR with flat Twaves in leads II, III, AVF. When the patient was seen at bedside, he continued to complain of chest pain, pointing to the L. lower sternal border/apex area. He states that the chest pain is where he fell when he fell off his boat last week. He denies any SOB, dizziness, light headedness. On exam, he is in irregular rate and rhythm w/ no m/r/g appreciated. He does have upper airway breath sounds and minimal expiratory wheezes in the lower lung maya. He has overall diminished breath sounds & mid to lower lung field b/l crackles. When asked whether he has COPD and uses and inhaler, he responded, yes, and stated that he has been using he inhalers more and more. Ordered Morphine 2mg IV q4h prn. Also gave another 162mg of Aspirin. Ordered Diltiazem 20mg IVP x 1. Will repeat a CXR, probnp, bmp, mag, phos, trop T. Ordered xopenex and Ipratropium scheduled q6h. He has a home med of [place] 10-325mg q6h prn. He is also on Furosemide as noted in Dr. Mancia & Dr. Salguero's note. Will order a dose of furosemide to be given in the early AM.
[2024-08-22] MEDS: dilTIAZem 5 mg/mL SDV 5 mL 20 MG IVP (23:49)
[2024-08-22 23:53] LABS: Anion Gap 13.5 (5-19); Blood Urea Nitrogen 22 mg/dL (8-23); Calcium 8.3 mg/dL (8.5-10.5); Carbon Dioxide 29 mmol/L (22-29); Chloride 109 mmol/L (98-107); Creatinine Clr Calc Pharmacy 49.5969; Glucose 101 mg/dL (65-115); Magnesium 1.3 mg/dL (1.7-2.3); NT Pro B Type Natriuretic Pept 19396 pg/mL (0-125); Osmolality Calculated 309 mOsm/kg (285-295); Potassium 3.5 mmol/L (3.5-5.1); Sodium 148 mmol/L (136-145)
[2024-08-23] VITALS (15 sets, daily range): BP systolic 85–126; BP diastolic 50–85; PULSE 74–118; RESP 14–20; TEMP 36.6–36.8; O2SAT 90–96
--- NOTE | 2024-08-23 00:18 | ECG_ITS ---
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: : 1950 Requested By: Lu Mabry Order Number: [id number] Reading MD: JAIRO FELICIANO Measurements Intervals [place] Rate: 100 P: 0 SD: 0 QRS: 172 QRSD: 97 T: -72 QT: 376 QTc: 486 Interpretive Statements ATRIAL FIBRILLATION WITH RAPID VENTRICULAR RESPONSE WITH ABERRANT CONDUCTION OR VENTRICULAR PREMATURE COMPLEXES RIGHT AXIS DEVIATION [QRS AXIS > 100] PATTERN CONSISTENT WITH PULMONARY DISEASE ABNORMAL QRS-T ANGLE [QRS-T AXIS DIFFERENCE > 60] Compared to ECG 08/22/2024 21:05:59 ST (T wave) deviation no longer present Electronically Signed On 08-29-2024 21:48:38 CDT by JAIRO FELICIANO [email or web address]
[2024-08-23 01:32] LABS: Troponin 5 2HR 89.25 ng/L (0-15)
[2024-08-23 01:33] LABS: Troponin 5 2HR Delta -2.75 ABS# (0-10)
[2024-08-23] MEDS: ipratropium 0.5 mg/2.5 mL Neb INHALATION ×3 (02:44→21:20)
[2024-08-23] MEDS: levalbuterol 1.25 mg/3 mL Neb INHALATION ×3 (02:44→21:20)
--- NOTE | 2024-08-23 02:49 | ECG_ITS ---
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: : 1950 Requested By: Lu Mabry Order Number: [id number] Reading MD: JAIRO FELICIANO Measurements Intervals [place] Rate: 102 P: 0 VA: 0 QRS: 134 QRSD: 102 T: -44 QT: 358 QTc: 467 Interpretive Statements ATRIAL FIBRILLATION WITH RAPID VENTRICULAR RESPONSE WITH ABERRANT CONDUCTION OR VENTRICULAR PREMATURE COMPLEXES RIGHT AXIS DEVIATION [QRS AXIS > 100] LOW QRS VOLTAGE IN EXTREMITY LEADS [QRS DEFLECTION < 0.5 mV IN LIMB LEADS] PATTERN CONSISTENT WITH PULMONARY DISEASE ABNORMAL QRS-T ANGLE [QRS-T AXIS DIFFERENCE > 60] Compared to ECG 08/23/2024 00:18:45 Low QRS voltage now present Electronically Signed On 08-29-2024 21:48:45 CDT by JAIRO FELICIANO [email or web address]
--- NOTE | 2024-08-23 03:42 | CTR_ITS ---
PROCEDURE INFORMATION: Exam: CT Chest Without Contrast; Diagnostic Exam date and time: 08/23/2024 4:04 AM Age: 73 years old Clinical indication: Other: Suspected RT infiltrate; Prior surgery; Surgery date: 6+ months; Surgery type: Cervical fusion; Suspected RT hilar/lower lobe infiltrate on cxr. History of chf, afib, and mi. ; Additional info: Possible R. Hilar infiltrate on cxr TECHNIQUE: Imaging protocol: Diagnostic computed tomography of the chest without contrast. Radiation optimization: All CT scans at this facility use at least one of these dose optimization techniques: automated exposure control; mA and/or kV adjustment per patient size (includes targeted exams where dose is matched to clinical indication); or iterative reconstruction. COMPAR[place] [id number] 10/16/2022 10:37 PM RADIATION DOSE METRICS: Total DLP (mGy-cm): 664.97 FINDINGS: Lungs: [id number] mixed emphysematous change. Chronic bronchiectasis bases. Pleural spaces: Moderate pleural effusions. Heart: Unremarkable. No cardiomegaly. No pericardial effusion. Lymph nodes: Unremarkable. No enlarged lymph nodes. Vasculature: Unremarkable. No aortic aneurysm. Liver: Innumerable hepatic cysts. Bones/joints: Unremarkable. No acute fracture. Soft tissues: Unremarkable. CT/CT chest wo con [id number] IMPRESSION: Emphysematous changes. Pleural effusions. Chronic appearing inflammatory changes bases. No definite superimposed acute consolidation. COMMENTS: The presence of pulmonary emphysema on CT is an independent risk factor for lung cancer. In the absence of a history or active diagnosis of lung cancer, it is recommended that this patient with emphysema be evaluated for enrollment in a low dose CT lung cancer screening program.
[2024-08-23] MEDS: magnesium sulfate premix 4 GM/100 ML PREMIX IV (04:26)
[2024-08-23] MEDS: potassium phosphate (mEq K) 40 MEQ in sodium chloride 0.9% (100 ml) 100 ML 27.25 MEQ IV (04:49)
[2024-08-23 05:18] LABS: Troponin 5 6HR 97.93 ng/L (0-15); Troponin 5 6HR Delta 5.93 ng/L (0-12)
[2024-08-23] MEDS: albumin 25 G/100 ML BAG 60 G IV (05:19)
[2024-08-23] MEDS: FUROsemide 10 mg/mL SDV 10mL 60 MG IVP (05:19)
[2024-08-23 05:23] LABS: Partial Thromboplastin Time 83.8 SECONDS (23.9-36.7)
[2024-08-23 06:14] LABS: Vitamin B12 616 pg/mL (232-1245)
[2024-08-23 06:29] LABS: Folate Level 6.6 ng/mL (4.5-32.2)
--- NOTE | 2024-08-23 07:12 | PM.PN ---
Subjective Subjective: 73-year-old male with a past medical history of atrial fibrillation, hypertension, hypercholesterolemia, diabetes mellitus (not on medication), transient ischemic attacks (TIAs), coronary artery disease, left knee replacement, benign prostatic hyperplasia (BPH), gastric ulcer, anemia, history of gastrointestinal bleed, erectile dysfunction, kidney stones, and chronic kidney disease presents with acute onset of weakness and slurred speech. Symptoms began last night around 9:30 PM after the Patient got off a boat. Neighbors noted slurred speech and difficulty moving his legs. The Patient stated, I couldn't move my legs. This morning, neighbors again noted slurred speech. The Patient also reports new-onset bilateral hand weakness, causing him to drop objects. He denies any unilateral weakness. The Patient reports chronic back pain radiating down his left leg. He uses a cane due to chronic left knee problems. He denies recent fever, chills, or respiratory symptoms. He reports possible hematuria but denies hematochezia. 08/23 Patient was seen following stress test. Cardiology was consulted. Overnight he was noted to be in atrial fibrillation. Was on heparin drip however this was transitioned to Eliquis. Medications: Reviewed: Yes Vitals/I&O/Wt Last Vital Signs Temp 97.9 F 08/23/24 04:24 Pulse 118 H 08/23/24 05:41 Resp 14 08/23/24 04:24 BP 117/66 08/23/24 04:24 Pulse Ox 90 08/23/24 04:24 O2 Del Method Nasal Cannula 08/23/24 04:24 O2 Flow Rate 3 08/23/24 04:24 08/22/24 08/23/24 08/23/24 22:59 06:59 14:59 Intake Total 240 / 720 702.917 / 1422.917 Output Total 550 / 1000 Balance 240 / 270 152.917 / 422.917 Weight last 48 hrs Weight 91.172 kg Weight 90.22 kg Weight 91.354 kg Weight 94.801 kg Physical Exam Narrative: - General: Alert and oriented - Cranial Nerves: Appear intact - Motor: - Upper extremities: Equal bilateral strength. Investor Relations Analyst strength intact bilaterally. Able to push and pull against resistance. Patient drops objects. - Lower extremities: Able to ambulate with cane - Gait: Unable to assess due to weakness. Patient uses a cane due to chronic left knee problems. - CVS: RRR, no obvious murmurs - Chest: CTABL - Abdomen: Soft - Extremity - Mild b/l LE edema Data 08/22/24 11:33 08/23/24 04:48 A&P Assessment and plan (1) Atrial fibrillation: Qualifiers: Atrial fibrillation type: unspecified Qualified Code(s): I48.91 - Unspecified atrial fibrillation (2) Neurological symptoms: (3) Weakness: (4) CHF (congestive heart failure): Qualifiers: Heart failure chronicity: unspecified Heart failure type: unspecified Qualified Code(s): I50.9 - Heart failure, unspecified (5) CAD (coronary artery disease): (6) Diabetes mellitus: Qualifiers: Chronic kidney disease stage: stage 3 (moderate) Chronic kidney disease stage 3 subtype: stage 3a (GFR 45-59) Diabetes mellitus complication detail: with chronic kidney disease Diabetes mellitus complication status: with kidney complications Diabetes mellitus 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 MRI confirmed a mild recent ischemic infarct in the right parietal region. Patient has improved clinically to baseline. Additional findings include hypernatremia, worsened EF (45%), and urinary tract infection. Patient was seen by cardiology. Given worsening heart failure was taken Lexiscan which did not show any evidence of myocardial ischemia. Subsequently was transition back to [facility]. # Acute Ischemic Stroke - Presenting symptoms of slurred speech and bilateral weakness. 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 - Patient has returned to baseline neurologically. - MRI confirms a mild recent ischemic infarct in the right parietal region - S/P Aspirn 325 mg PO x 1 on , now on 81 mg daily - Lipitor 40 mg daily - Continue neuro checks - PT/OT consult - ECHO noted newly found HF noted below, stess negative - Restarted on Eliquis 5 mg BID # Atrial Fibrillation with RVR and possible Suboptimal Anticoagulation? - Patient with known atrial fibrillation who suffered an ischemic stroke despite presumed anticoagulation with Eliquis likely due to medication non-adherence, or stroke from alternative etiology. - Restarted on Eliquid 5 mg BID Plan: - Continue to monitor on tele - Echo noted below - Continue eliquis - Cardiology consulted for control - If BP tolerates will start on B-Prabhakar # Newly Reduced Ejection Fraction (45%) - New finding of reduced EF to 45% from previously normal in 2022, with downtrending troponin suggesting possible recent cardiac injury. No active chest pain. Plan: Lexiscan as planned to evaluate for ischemia Initiate guideline-directed medical therapy for HFrEF: - Beta-prabhakar to resume - Will start KAREN-inhibitor once stable renal funciton - Also will consider aldactone and SGLT2 at discharge - Ischemic work up negative. # Urinary Tract Infection - Urinalysis showing pyuria (21-50 WBCs) and 4+ bacteria, with trace leukocyte esterase. Plan: - Urine culture to identify organism and sensitivities - Ceftriaxone 1g IV daily - Adjust antibiotics based on culture results # Chronic Kidney Disease - Baseline creatinine 1.7 mg/dL with acute increase to 2.2 mg/dL, now improved to 1.6 mg/dL. Hypernatremia (149 mEq/L) also present. Dx: - Monitor renal function daily - Adjust medication doses for renal function - Avoid nephrotoxic agents - Correct hypernatremia with free water replacement ( Cautious IV hydration ) # Thrombocytopenia - count decreased from 159 to 100, with history of chronic thrombocytopenia noted. Plan: - Monitor CBC dailys - Continue heparin with close monitoring for bleeding Chronic Problems # Benign Prostatic Hyperplasia - Continue home medications for BPH # Chronic Back Pain - Continue pain management with non-opioid analgesics as tolerated - Physical therapy consultation for strengthening exercises # Spinal Stenosis - Moderate spinal canal stenosis L3-S1 may contribute to lower extremity symptoms. No evidence of cord compression - Physical therapy consultation once acute neurological issues stabilized #Hypercholesterolemia - Continue atorvastatin #Gastric Ulcer/History of GI Bleed - Continue omeprazole 20 mg daily - Monitor for signs of GI bleeding while on anticoagulation PDMP PDMP Reviewed: Not Reviewed Attestations Medical Necessity Statement*: Patient requires hospitalization for further work up of neurological symptoms. Coding Level of Care Code Acute Code for Chg Fwd Diagnoses Atrial fibrillation, unspecified type I48.91 Atrial fibrillation type: unspecified Neurological symptoms R29.90 Weakness R53.1 Congestive heart failure, unspecified HF chronicity, unspecified heart failure type I50.9 Heart failure chronicity: unspecified Heart failure type: unspecified CAD (coronary artery disease) I25.10 Type 2 diabetes mellitus with stage 3a chronic kidney disease, without long-term current use of insulin E11.22; N18.31 Chronic kidney disease stage: stage 3 (moderate) Chronic kidney disease stage 3 subtype: stage 3a (GFR 45-59) Diabetes mellitus complication detail: with chronic kidney disease Diabetes mellitus complication status: with kidney complications Diabetes mellitus group home insulin use: without buttermilk drier operator use Diabetes mellitus type: type 2 Primary hypertension I10 Hypertension type: primary hypertension Hypercholesterolemia E78.00
[2024-08-23] MEDS: regadenoson 0.4 Mg/5 ml Syringe IVP (07:21)
[2024-08-23 08:45] LABS: Anion Gap 12.4 (5-19); Blood Urea Nitrogen 19 mg/dL (8-23); Calcium 8.4 mg/dL (8.5-10.5); Carbon Dioxide 30 mmol/L (22-29); Chloride 110 mmol/L (98-107); Creatinine Clr Calc Pharmacy 58.1539; Glucose 83 mg/dL (65-115); Osmolality Calculated 309 mOsm/kg (285-295); Potassium 3.4 mmol/L (3.5-5.1); Sodium 149 mmol/L (136-145)
[2024-08-23] MEDS: aspirin 81 mg EC Tablet PO (08:47)
[2024-08-23] MEDS: pantoprazole DR 40 mg Tablet PO (08:47)
[2024-08-23] MEDS: finasteride 5 mg Tablet PO (08:47)
[2024-08-23] MEDS: tamsulosin 0.4 mg Capsule PO (08:47)
[2024-08-23 08:48] LABS: Glucose Point of Care 134 mg/dL (70-110)
--- NOTE | 2024-08-23 11:30 | P.CONIM_ITS ---
<Statement entered by Shane Baker M.D - 08/24/24 12:09> Patient was evaluated and cared for in conjunction with an advanced practice practitioner.? I personally examined the patient and reviewed the chart and all pertinent data including imaging, telemetry, and laboratory results.? I discussed the patient in detail with the advanced practice practitioner.? Please see? their note for complete consult note, testing results and agreed upon plan of care for the patient. Patient is chest pain free at this time. Stress test is negative. GENERAL: Patient is alert, awake and oriented x3. HEART: Regular S1 and S2 LUNGS: Clear to auscultate bilaterally. CENTRAL NERVOUS SYSTEM: Grossly nonfocal. EXTREMITIES: Lower extremities with out edema bilaterally. Providers/Reason For Consult 2 Consulting Physician/Specialty*: Dr. Baker Reason for Consult*: A-fib RVR Requesting Physician: Dr. Sánchez Attending Physician: Jonel Sánchez Primary Care Provider: TWYLA BETANCOURT MD History of Present Illness History of Present Illness Floyd Spring is a 73 year old male who came into the ER couple days ago for strokelike symptoms. At the time he had slurred speech and some weakness in his legs. He does have a history of CAD, IA, hypertension, hypercholesterolemia, A- fib for which she was on Eliquis at home, TIA, and diabetes. CT of the head was done with nothing acutely seen. He was found to have an acute kidney injury with creatinine of 2.2. Currently this is back to normal at 1.2. He does not have any slurred speech at the time of my exam. Denies chest pain or shortness of breath. Potassium slightly low this am at 3.4. Current rates are slightly uncontrolled around 105 in afib. Troponins were 113-111.9-101 delta negative. Stress test was performed that showed normal myocardial perfusion imaging without evidence of ischemia and normal LV function. Echo showed EF mildly reduced at 40-45% with small sized pericardial effusion. CT chest showed some pleural effusions bilaterally, but they were not large. He recieved lasix 60 today. BP has been soft. Pro bnp was over [address]. Review of Systems 2 Narrative: Consitutional: denies fever, chills, body aches Card: Denies chest pain, palpitations, irregular heart rhythm, edema, syncope, shortness of breath, orthopnea Resp: Denies shortness of breath, denies hemoptysis, denies cough GI:denies nausea or vomiting Skin: Denies rash, lesions, or wounds, denies changes to skin color Neuro: alert and oriented x4 Medications/Allergies Home Medications ?Medication ?Instructions ?Recorded ?Confirmed ?Last Taken ?Type isosorbide mononitrate 30 mg 30 mg PO DAILY #90 tabs 0 09/22/19 08/21/24 Unknown Rx tablet,extended release 24 hr atorvastatin 20 mg tablet 20 mg PO DAILY 01/24/2107/25 Unknown History finasteride 5 mg tablet 5 mg PO DAILY 01/24/2108/21 Unknown History omeprazole magnesium 20 mg 20 mg PO DAILY 01/24/21 Unknown History capsule,delayed release (Acid Photography Instructor (omeprazole)) hydrocodone 10 mg-acetaminophen 1 tab PO Q6H PRN pain #20 tabs 10/22/22 08/21/24 Unknown Rx 325 mg tablet magnesium oxide 400 mg (241.3 mg 400 mg PO BID #60 tab s 10/22/22 08/21/24 Unknown Rx magnesium) tablet nitroglycerin 0.4 mg sublingual 0.4 mg sublingual Q5M PRN chest 10/23/23 08/21/24 Unknown Rx tablet pain #30 tabs apixaban 5 mg tablet (Eliquis) 5 mg PO BID #180 tabs 0 06/23/24 08/21/24 Unknown Rx furosemide 40 mg tablet 40 mg PO DAILY Edema #90 tab s 06/23/24 08/21/24 Unknown Rx calcium citrate 250 mg PO DAILY 08/21/24 Unknown History irbesartan 300 mg tablet 300 mg PO DAILY 08/21/24 Unknown History pregabalin 200 mg capsule 200 mg PO BID PRN nerve pain 08/21/24 08/21/24 Unknown History tamsulosin 0.4 mg capsule 0.4 mg PO DAILY 08/21/24 Unknown History vitamin B complex 1 tab PO DAILY 08/21/2407/25 Unknown History Allergies Allergy/AdvReac Type Severity Reaction Status Date / Time No Known Allergies Allergy Verified 04/28/24 13:47 Current Medications Generic Name Dose Route Start Last Admin Trade Name Freq PRN Reason Stop Dose Admin Aspirin 81 mg 08/23/24 09:00 08/23/24 08:47 Aspirin 81 Mg Ec Tablet PO 81 mg DAILY MEME Administration Atorvastatin Calcium 40 mg 08/22/24 21:00 08/22/24 20:20 Atorvastatin 40 Mg Tablet PO 40 mg BEDTIME MEME Administration Ceftriaxone Sodium 1,000 mg 08/22/24 15:30 08/22/24 16:03 Ceftriaxone 1,000 Mg Sdv IVP 1,000 mg Q24H MEME Administration Protocol Finasteride 5 mg 08/22/24 09:00 08/23/24 08:47 Finasteride 5 Mg Tablet PO 5 mg DAILY MEME Administration Heparin Sodium/Sodium Chloride 25,000 unit in 500 mls @ 0 mls/hr 08/22/24 15:30 08/23/24 05:25 Heparin Drip IV 9.98 unit/kg/hr CONT MEME 18 mls/hr Titration Protocol Per Protocol Insulin Human Lispro 0 unit 08/21/24 20:10 08/23/24 07:49 Insulin Lispro 100 Unit/1 Ml SUBCUT Not Given TIDWM [facility] Protocol Ipratropium [place] 0.5 mg 08/23/24 02:00 08/23/24 08:08 Ipratropium 0.5 Mg/2.5 Ml Neb INHALATION Not Given Q6H.RESP MEME Levalbuterol HCl 1.25 mg 08/23/24 02:00 08/23/24 08:08 Levalbuterol 1.25 Mg/3 Ml Neb INHALATION Not Given Q6H.RESP MEME Pantoprazole Sodium 40 mg 08/23/24 09:00 08/23/24 08:[address] 40 Mg Tablet PO 40 mg DAILY MEME Administration Tamsulosin HCl 0.4 mg 08/22/24 09:00 08/23/24 08:47 Tamsulosin 0.4 Mg Capsule PO 0.4 mg DAILY MEME Administration PFSH Acute 2 PFSH: Medical History CAD (coronary artery disease) Atrial fibrillation History of IA (myocardial infarction) History of TIA (transient ischemic attack) Diabetes mellitus HTN (hypertension) Hypercholesterolemia Surgical History Status post left knee replacement S/P PTCA (percutaneous transluminal coronary angioplasty) Family History Father Stroke Diabetes Hypertension Mother Stroke Hypertension Brother Diabetes Hypertension Sister Diabetes Chronic kidney disease (CKD) Hypertension Social History Smoking and tobacco/nicotine status: former use of tobacco/nicotine Vitals/I&O/Wt Last Vital Signs Temp 98.0 F 08/23/24 08:00 Pulse 105 H 08/23/24 08:00 Resp 17 08/23/24 08:00 BP 103/59 08/23/24 08:00 Pulse Ox 91 08/23/24 08:00 O2 Del Method Nasal Cannula 08/23/24 08:00 O2 Flow Rate 3 08/23/24 08:00 08/22/24 08/23/24 08/23/24 22:59 06:59 14:59 Intake Total 240 / 720 702.917 / 1422.917 Output Total 550 / 1000 400 / 400 Balance 240 / 270 152.917 / 422.917 -400 / -400 Weight last 48 hrs Weight 201 lb Weight 198 lb 14.4 oz Weight 201 lb 6.4 oz Weight 209 lb Physical Exam 2 Narrative: General: No apparent distress, healthy appearing HENMT: normoceophalic Muskuloskeletal: Full ROM Respiratory: Normal respiratory effort, clear except bilateral lower lobes fine crackles present, no use of accessory muscles Cardio: No JVD, regular rate, regular rhythm, S1 S2 normal, no murmurs, peripheral pulses 2+ radial palpated bilaterally GI: Normal to inspection, nondistended Extremities: Full ROM, normal, normal capillary refill, no cyanosis or edema Neuro: Alert and oriented x4 Psych: Affect normal Skin: No rashes or lesions noted, no wounds Data 08/22/24 11:33 08/23/24 04:48 Micro: Microbiology 08/21/24 17:35 Urine Culture - Preliminary Urine,Clean Catch A&P Assessment and plan (1) Atrial fibrillation: Qualifiers: Atrial fibrillation type: unspecified Qualified Code(s): I48.91 - Unspecified atrial fibrillation (2) Neurological symptoms: (3) Weakness: (4) CHF (congestive heart failure): Qualifiers: Heart failure chronicity: unspecified Heart failure type: unspecified Qualified Code(s): I50.9 - Heart failure, unspecified (5) CAD (coronary artery disease): (6) Diabetes mellitus: Qualifiers: Diabetes mellitus type: type 2 Diabetes mellitus medical terminologist insulin use: without jail use Diabetes mellitus complication status: with kidney complications Diabetes mellitus complication detail: with chronic kidney disease Chronic kidney disease stage: stage 3 (moderate) Chronic kidney disease stage 3 subtype: stage 3a (GFR 45-59) Qualified Code(s): E11.22 - Type 2 diabetes mellitus with diabetic chronic kidney disease; N18.31 - Chronic kidney disease, stage 3a (7) HTN (hypertension): Qualifiers: Hypertension type: primary hypertension Qualified Code(s): I10 - Essential (primary) hypertension (8) Hypercholesterolemia: Plan At this time, patient denies any chest pain or shortness of breath, and stress test was normal. Although troponin was elevated, it is not trending up and patient is asymptomatic. Most likely this was due to demand ischemia. At this time, can transition patient to Eliquis 5 mg BID for stroke prevention. Patient's blood pressure is soft, so we will focus on rate control with metoprolol 12.5 daily. Agree with diuresis. Will monitor I&O and creatinine. At this time, he is well compensated. Thank you, Dr. Sánchez, for allowing us to care for this very pleasant 73 year old gentleman. PDMP PDMP Reviewed: Not Reviewed Coding Level of Care Code Acute Code for g Fwd Diagnoses Atrial fibrillation, unspecified type I48.91 Atrial fibrillation type: unspecified Neurological symptoms R29.90 Weakness R53.1 Congestive heart failure, unspecified HF chronicity, unspecified heart failure type I50.9 Heart failure chronicity: unspecified Heart failure type: unspecified CAD (coronary artery disease) I25.10 Type 2 diabetes mellitus with stage 3a chronic kidney disease, without long-term current use of insulin E11.22; N18.31 Diabetes mellitus type: type 2 Diabetes mellitus medical terminologist insulin use: without medical terminologist use Diabetes mellitus complication status: with kidney complications Diabetes mellitus complication detail: with chronic kidney disease Chronic kidney disease stage: stage 3 (moderate) Chronic kidney disease stage 3 subtype: stage 3a (GFR 45-59) Primary hypertension I10 Hypertension type: primary hypertension Hypercholesterolemia E78.00
--- NOTE | 2024-08-23 11:58 | PC.NURSE ---
Lab moe PTT almost an hour late. Due at 1100.
[2024-08-23 12:04] LABS: Glucose Point of Care 162 mg/dL (70-110)
[2024-08-23] MEDS: insulin lispro 100 unit/1 mL SUBCUT (12:42)
[2024-08-23] MEDS: metoprolol succinate ER (24 HR) 25 mg Tablet 12.5 MG PO (12:42)
--- NOTE | 2024-08-23 13:56 | PC.SOCIAL ---
IMM updated Updated pt on IMM. No questions voiced. Provided pt a copy. Initialed, dated, & timed a copy & placed in chart.
--- NOTE | 2024-08-23 14:31 | PC.NURSE ---
pharmacy operations coordinator rounds- 08/23 at 0910 gave patient stroke education book. Assisted with urinal. Answered questions.
[2024-08-23] MEDS: cefTRIAXone 1,000 mg SDV 1000 MG IVP (15:15)
--- NOTE | 2024-08-23 15:34 | NMCV_ITS ---
NM jd perf SPECT r/s* [id number] [place] Age: 73 Gender: M : 1950 Exam Date: 08/23/2024 15:34 Ordering Phys: Jonel Sánchez MD Technologist: RENETTA Mota Exam Location: [facility] Indications: cp STRESS TEST Please see separate stress test report in [facility] for full findings IMAGE PROTOCOL Rest/Stress 1 Lexiscan Day Radiopharmaceutical Dose (mCi) Administration Site Administered by Rest: Tc-99m 10.9 IV Kimberly Treviño, DIRECTOR OF TEACHER EDUCATION Sestamibi Stress:Tc-99m 33 IV Kimberly Craftgle, DIRECTOR OF TEACHER EDUCATION Sestamibi Rest: 23-Aug-2024 60 Discovery 630 Stress: 23-Aug-2024 30 Discovery 630 0.4mg Lexiscan. Supine position only as patient was unable to lay prone. SPECT RESULTS Technical Quality: Good Raw Data Analysis: Normal Image Corrections: No attenuation or motion correction applied Summed Stress Score: 0 Summed Rest Score: 0 Summed Difference Score: 0 PERFUSION FINDINGS SPECT images demonstrate homogeneous tracer distribution throughout the myocardium. FUNCTIONAL RESULTS (calculated via Gated SPECT) Stress Image LV EF (%): 61 Stress EDV (mL):84 TID: 1.05 Stress ESV (mL):33 FUNCTIONAL FINDINGS: There is normal left ventricular systolic function. IMPRESSIONS 1. Normal myocardial perfusion imaging with no evidence of ischemia. 2. LV systolic function is normal Shane Baker MD (Electronically Signed) Final Date: 23 August 2024 08:34 S
[2024-08-23 16:52] LABS: Glucose Point of Care 70 mg/dL (70-110)
[2024-08-23 20:29] LABS: Partial Thromboplastin Time 37.9 SECONDS (23.9-36.7)
[2024-08-23] MEDS: apixaban 5 mg Tablet PO (21:05)
[2024-08-23] MEDS: atorvastatin 40 mg Tablet PO (21:06)
[2024-08-23 21:29] LABS: Glucose Point of Care 124 mg/dL (70-110)
[2024-08-24] VITALS (13 sets, daily range): BP systolic 114–125; BP diastolic 52–93; PULSE 84–117; RESP 15–22; TEMP 36.5–37.2; O2SAT 90–99; BMI 31.4
[2024-08-24] MEDS: levalbuterol 1.25 mg/3 mL Neb INHALATION ×3 (01:21→14:02)
[2024-08-24] MEDS: ipratropium 0.5 mg/2.5 mL Neb INHALATION ×3 (01:21→14:04)
[2024-08-24 05:52] LABS: Basophils % 0.4 %; Eosinophils # 0.1 10^3/uL (0.0-0.8); Eosinophils % 1.1 %; Hematocrit 41.5 % (37-53); Lymphocytes # 0.5 10^3/uL (0.8-4.8); Lymphocytes % 10.4 %; Mean Corpuscular HGB Conc 29.6 g/dL (30-55); Mean Corpuscular Hemoglobin 32.5 pg (27-33); Mean Corpuscular Volume 109.5 fl (82-101); Mean Platelet Volume 11.8 fL (7.4-10.4); Monocytes # 0.5 10^3/uL (0.2-0.9); Monocytes % 10.4 %; Neutrophils # 3.62 10^3/uL (1.8-7.7); Neutrophils % 77.1 %; Nucleated Red Blood Cells % 0 %; Platelet Count 91 10^3/cmm (157-399); Red Blood Count 3.79 10^6/uL (3.85-5.65); Red Cell Distribution Width 17.2 % (12.1-15.1)
[2024-08-24 06:12] LABS: Alanine Aminotransferase 10 U/L (0-41); Alkaline Phosphatase 58 U/L (40-130); Anion Gap 10.3 (5-19); Aspartate Amino Transferase 13 U/L (0-40); Blood Urea Nitrogen 14 mg/dL (8-23); Calcium 8.3 mg/dL (8.5-10.5); Carbon Dioxide 35 mmol/L (22-29); Chloride 107 mmol/L (98-107); Creatinine Clr Calc Pharmacy 63.4407; Globulin 2.4 g/dL (1.3-4.6); Glucose 88 mg/dL (65-115); Osmolality Calculated 308 mOsm/kg (285-295); Potassium 3.3 mmol/L (3.5-5.1); Sodium 149 mmol/L (136-145); Total Bilirubin 1.1 mg/dL (0.15-1.2); Total Protein 5.4 g/dL (6.6-8.7)
[2024-08-24 06:51] LABS: Glucose Point of Care 92 mg/dL (70-110)
[2024-08-24] MEDS: morphine 4 mg/mL SDV 1 mL 1 MG IVP (09:10)
[2024-08-24] MEDS: aspirin 81 mg EC Tablet PO (09:11)
[2024-08-24] MEDS: apixaban 5 mg Tablet PO ×2 (09:11→20:18)
[2024-08-24] MEDS: tamsulosin 0.4 mg Capsule PO (09:11)
[2024-08-24] MEDS: finasteride 5 mg Tablet PO (09:12)
[2024-08-24] MEDS: metoprolol succinate ER (24 HR) 25 mg Tablet 12.5 MG PO (09:12)
[2024-08-24] MEDS: potassium chloride ER 20 mEq Tablet 40 MEQ PO ×2 (09:12→13:13)
[2024-08-24] MEDS: pantoprazole DR 40 mg Tablet PO (09:12)
--- NOTE | 2024-08-24 09:34 | XR_ITS ---
WS: [id number] XR chest 1V portable [id number] REASON FOR EXAM: Diminished lung sounds, pleural effusion FINDINGS: Moderate ectasia and tortuosity of the thoracic aorta. Cardiomegaly. Moderate bilateral pleural effusions demonstrated on the CT scan of 08/23/2024. Left-sided pleural effusion not readily evident. On the right there is minimal blunting of the costophrenic angle which is not appreciated on the previous exam of 08/22/2024. Subtle reticular interstitial lung opacities with mild parabronchial cuffing appears somewhat more prominent than on the previous examination of 08/22/2024. Potentially this could represent an early pulmonary edema. No no other interval change or new finding. XR/XR chest 1V portable [id number] IMPRESSION: Equivocal interval change compared to the previous examination as above.
--- NOTE | 2024-08-24 10:33 | P.PN_ITS ---
<Statement entered by Shane Baker M.D - 08/25/24 10:52> Patient was cared for in conjunction with an advanced practice practitioner.? I reviewed the chart and all pertinent data including imaging, telemetry, and laboratory results.? I discussed the patient in detail with the advanced practice practitioner.? Please see their note for progress note, testing results and agreed upon plan of care for the patient. Can use amiodarone for rate/rhythm control. Subjective 2 Subjective: Patient doing okay this morning. His main complaint is left-sided chest tenderness especially when he takes a deep breath from where he fell on his boat. There is no obvious injury to the area. Left lower lobe was slightly diminished and x-ray was performed that did not appear to have any significant changes. He denies any difficulty breathing. He is getting morphine as well and pain is managed by hospitalist. Potassium was a little low at 3.3. This was replenished with 40 mill equivalents of potassium. Currently getting Eliquis for A-fib. He is asymptomatic but pulse is still around 117 despite adding low- dose metoprolol. Blood pressure stable at 115/62. Creatinine stable at 1.1. Vitals/I&O/Wt Last Vital Signs Temp 98.0 F 08/24/24 08:03 Pulse 117 H 08/24/24 08:03 Resp 18 08/24/24 09:10 BP 115/62 08/24/24 08:03 Pulse Ox 91 08/24/24 08:03 O2 Del Method Nasal Cannula 08/24/24 08:03 O2 Flow Rate 2 08/24/24 07:22 08/23/24 08/24/24 08/24/24 22:59 06:59 14:59 Intake Total 469.0909 / 839.5909 558.25 / 558.25 Output Total 350 / 1775 200 / 1975 Balance 119.0909 / -935.4091 -200 / -1135.4091 558.25 / 558.25 Weight last 48 hrs Weight 201 lb Weight 201 lb Physical Exam 2 Narrative: General: No apparent distress, healthy appearing, well nourished HENMT: normoceophalic Muskuloskeletal: Full ROM Respiratory: Normal respiratory effort, left anteior lower lobe slightly diminished, no use of accessory muscles Cardio: No JVD, regular rate, regular rhythm, S1 S2 normal, no murmurs, peripheral pulses 2+ radial palpated bilaterally GI: Normal to inspection, nondistended Extremities: Full ROM, normal, normal capillary refill, no cyanosis or edema Neuro: Alert and oriented x4, no focal motor deficits Psych: Affect normal, denies suicidal ideation, mental status grossly normal Skin: No rashes or lesions noted, no wounds Data 08/24/24 05:32 08/24/24 05:32 Micro: Microbiology 08/21/24 17:35 Urine Culture - Preliminary Urine,Clean Catch A&P Assessment and plan (1) Atrial fibrillation: Qualifiers: Atrial fibrillation type: unspecified Qualified Code(s): I48.91 - Unspecified atrial fibrillation (2) Neurological symptoms: (3) Weakness: (4) CHF (congestive heart failure): Qualifiers: Heart failure chronicity: unspecified Heart failure type: unspecified Qualified Code(s): I50.9 - Heart failure, unspecified (5) CAD (coronary artery disease): (6) Diabetes mellitus: Qualifiers: Diabetes mellitus type: type 2 Diabetes mellitus long term acute care registered nurse insulin use: without long term acute care registered nurse use Diabetes mellitus complication status: with kidney complications Diabetes mellitus complication detail: with chronic kidney disease Chronic kidney disease stage: stage 3 (moderate) Chronic kidney disease stage 3 subtype: stage 3a (GFR 45-59) Qualified Code(s): E11.22 - Type 2 diabetes mellitus with diabetic chronic kidney disease; N18.31 - Chronic kidney disease, stage 3a (7) HTN (hypertension): Qualifiers: Hypertension type: primary hypertension Qualified Code(s): I10 - Essential (primary) hypertension (8) Hypercholesterolemia: Plan At this time, patient's heart rate still elevated despite addition of metoprolol. Will go ahead and load with digoxin IV and then give half of the loading dose every 6 hours x 2 doses. Will closely need to monitor I&O and watch creatinine. At this time he appears well compensated. Continue metoprolol at low-dose 12.5 mg and Eliquis 5 mg twice daily for stroke prevention. He has had left sided tenderness where he fell. Hospitalist is managing pain at this time. PDMP PDMP Reviewed: Not Reviewed Attestations 2 Medical Necessity Statement*: Deferred to primary. Coding Level of Care Code Acute Code for [facility] Fwd Diagnoses Atrial fibrillation, unspecified type I48.91 Atrial fibrillation type: unspecified Neurological symptoms R29.90 Weakness R53.1 Congestive heart failure, unspecified HF chronicity, unspecified heart failure type I50.9 Heart failure chronicity: unspecified Heart failure type: unspecified CAD (coronary artery disease) I25.10 Type 2 diabetes mellitus with stage 3a chronic kidney disease, without long-term current use of insulin E11.22; N18.31 Diabetes mellitus type: type 2 Diabetes mellitus long term acute care registered nurse insulin use: without intermediate use Diabetes mellitus complication status: with kidney complications Diabetes mellitus complication detail: with chronic kidney disease Chronic kidney disease stage: stage 3 (moderate) Chronic kidney disease stage 3 subtype: stage 3a (GFR 45-59) Primary hypertension I10 Hypertension type: primary hypertension Hypercholesterolemia E78.00
--- NOTE | 2024-08-24 12:00 | PC.NURSE ---
Received from [facility] Pt is alert,orientedx4. He is able to get up and stand to transfer to chair with standby assist. Pt still has 5/10 pleuritic chest pain on left side. Informed pt on Amiodarone drip treatment for his afib as ordered by his hospitalist, HR-100s-low 110s, on oxygen at 2 L NC/min. Call light provided to pt.
[2024-08-24 12:21] LABS: Glucose Point of Care 111 mg/dL (70-110)
[2024-08-24] MEDS: amiodarone 150 MG/100 ML PREMIX 400 MG IV (12:42)
[2024-08-24] MEDS: FUROsemide 40 mg Tablet PO (13:13)
[2024-08-24 13:17] LABS: Estmated Average Glucose 105; Hemoglobin A1C 5.3 % (4.0-6.0)
[2024-08-24 13:40] LABS: Procalcitonin 0.12 ng/mL (0-0.5); Thyroid Stimulating Hormone 2.46 uIU/mL (0.27-4.20)
[2024-08-24 14:00] LABS: Iron 43 ug/dL (59-158); Percent Saturation 19.1 % (20-50); Total Iron Binding Capacity 224 mcg/dl; Unsaturated Iron Binding 181 ug/dL (112-347)
--- NOTE | 2024-08-24 15:00 | PM.PN ---
Subjective Subjective: Hospital course, labs appreciated. On examination patient laying comfortably in bed. Has remained tachycardic overnight. Complaining of mild difficulty in breathing. Medications: Reviewed: Yes Vitals/I&O/Wt Last Vital Signs Temp 98.4 F 08/25/24 11:30 Pulse 84 08/25/24 14:24 Resp 16 08/25/24 14:24 BP 122/80 08/25/24 11:30 Pulse Ox 96 08/25/24 14:24 O2 Del Method Nasal Cannula 08/25/24 14:24 O2 Flow Rate 4 08/25/24 14:24 08/25/24 08/25/24 08/25/24 06:59 14:59 22:59 Intake Total 780 / 780 Output Total 300 / 2200 500 / 500 Balance -300 / -415.75 280 / 280 Weight last 48 hrs Weight 87.861 kg Weight 91.172 kg Physical Exam Narrative: General: No acute distress, AO x3, slow to respond HEENT: PERRLA, pupils bilaterally equal and reactive Chest: Normal vesicular breath sounds, no added sounds, equal good air entry bilaterally CVS: S1-S2 irregularly irregular, pansystolic murmur at apex, tachycardia, no gallops, no rubs Abdomen: Soft, nontender, no organomegaly, bowel sounds present Neuro: No focal deficits, no facial deformity, AO x3, power 3/5 in all limbs Data 08/25/24 03:56 08/25/24 03:56 A&P Assessment and plan (1) CHF (congestive heart failure): Qualifiers: Heart failure chronicity: acute Heart failure type: combined systolic and diastolic Qualified Code(s): I50.41 - Acute combined systolic (congestive) and diastolic (congestive) heart failure (2) Atrial fibrillation: Qualifiers: Atrial fibrillation type: persistent (not longstanding) Qualified Code(s): I48.19 - Other persistent atrial fibrillation (3) Neurological symptoms: (4) Weakness: (5) CAD (coronary artery disease): (6) Diabetes mellitus: Qualifiers: Diabetes mellitus type: type 2 Diabetes mellitus superintendent container terminal insulin use: without superintendent container terminal use Diabetes mellitus complication status: with kidney complications Diabetes mellitus complication detail: with chronic kidney disease Chronic kidney disease stage: stage 3 (moderate) Chronic kidney disease stage 3 subtype: stage 3a (GFR 45-59) Qualified Code(s): E11.22 - Type 2 diabetes mellitus with diabetic chronic kidney disease; N18.31 - Chronic kidney disease, stage 3a (7) HTN (hypertension): Qualifiers: Hypertension type: primary hypertension Qualified Code(s): I10 - Essential (primary) hypertension (8) Hypercholesterolemia: (9) Nonischemic cardiomyopathy: Plan 73-year-old male with extensive cardiovascular history (atrial fibrillation, hypertension, hypercholesterolemia, CAD, TIAs) and CKD who presented with acute onset of slurred speech and bilateral limb weakness. MRI confirmed a mild recent ischemic infarct in the right parietal region. Patient has improved clinically to baseline. Additional findings include hypernatremia, worsened EF (45%), and urinary tract infection. Patient was seen by cardiology. Given worsening heart failure was taken Lexiscan which did not show any evidence of myocardial ischemia. Subsequently was transition back to Eliquis. # Acute Ischemic Stroke - Presenting symptoms of slurred speech and bilateral weakness. 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 - Patient has returned to baseline neurologically. - MRI confirms a mild recent ischemic infarct in the right parietal region - S/P Aspirn 325 mg PO x 1 on , now on 81 mg daily - Lipitor 40 mg daily - Continue neuro checks - PT/OT consult - ECHO noted newly found HF noted below, stess negative - Restarted on Eliquis 5 mg BID # Atrial Fibrillation with RVR and possible Suboptimal Anticoagulation? - Patient with known atrial fibrillation who suffered an ischemic stroke despite presumed anticoagulation with Eliquis likely due to medication non-adherence, or stroke from alternative etiology. - Restarted on Eliquid 5 mg BID Plan: - Continue to monitor on tele - Echo noted below - Continue eliquis - Cardiology consulted for control - If BP tolerates will start on B-Prabhakar # Newly Reduced Ejection Fraction (45%) - New finding of reduced EF to 45% from previously normal in 2022, with downtrending troponin suggesting possible recent cardiac injury. No active chest pain. Plan: Lexiscan as planned to evaluate for ischemia Initiate guideline-directed medical therapy for HFrEF: - Beta-prabhakar to resume - Will start KAREN-inhibitor once stable renal funciton - Also will consider aldactone and SGLT2 at discharge - Ischemic work up negative. # Urinary Tract Infection - Urinalysis showing pyuria (21-50 WBCs) and 4+ bacteria, with trace leukocyte esterase. Plan: - Urine culture to identify organism and sensitivities - Ceftriaxone 1g IV daily - Adjust antibiotics based on culture results # Chronic Kidney Disease - Baseline creatinine 1.7 mg/dL with acute increase to 2.2 mg/dL, now improved to 1.6 mg/dL. Hypernatremia (149 mEq/L) also present. Dx: - Monitor renal function daily - Adjust medication doses for renal function - Avoid nephrotoxic agents - Correct hypernatremia with free water replacement ( Cautious IV hydration ) # Thrombocytopenia - count decreased from 159 to 100, with history of chronic thrombocytopenia noted. Plan: - Monitor CBC dailys - Continue heparin with close monitoring for bleeding Chronic Problems # Benign Prostatic Hyperplasia - Continue home medications for BPH # Chronic Back Pain - Continue pain management with non-opioid analgesics as tolerated - Physical therapy consultation for strengthening exercises # Spinal Stenosis - Moderate spinal canal stenosis L3-S1 may contribute to lower extremity symptoms. No evidence of cord compression - Physical therapy consultation once acute neurological issues stabilized #Hypercholesterolemia - Continue atorvastatin #Gastric Ulcer/History of GI Bleed - Continue omeprazole 20 mg daily - Monitor for signs of GI bleeding while on anticoagulation Plan for the day: Continue with PT/OT/speech evaluation. Advance diet accordingly. Patient remains in A-fib with RVR. Start on amiodarone drip. Transfer to [facility]. Start on metoprolol 25 mg twice daily. Mild concerns for congestive heart failure. Oral 40 mg Lasix. Patient does have hypernatremia. Will continue to monitor. Replace potassium. Monitor potassium and magnesium levels daily. Appreciate the echocardiogram. No concern for ischemic cardiomyopathy. Appreciate Lexiscan stress test negative for acute ischemia. Appreciate A1c, lipid panel. Kidney function stable. Restart home pain medications PDMP PDMP Reviewed: Not Reviewed Attestations Medical Necessity Statement*: Requested hospitalization went of A-fib with RVR, new onset congestive heart failure patient admitted initially for strokelike symptoms. Diagnoses Acute combined systolic and diastolic congestive heart failure I50.41 Heart failure chronicity: acute Heart failure type: combined systolic and diastolic Persistent atrial fibrillation I48.19 Atrial fibrillation type: persistent (not longstanding) Neurological symptoms R29.90 Weakness R53.1 CAD (coronary artery disease) I25.10 Type 2 diabetes mellitus with stage 3a chronic kidney disease, without long-term current use of insulin E11.22; N18.31 Diabetes mellitus type: type 2 Diabetes mellitus nursing home insulin use: without nursing home use Diabetes mellitus complication status: with kidney complications Diabetes mellitus complication detail: with chronic kidney disease Chronic kidney disease stage: stage 3 (moderate) Chronic kidney disease stage 3 subtype: stage 3a (GFR 45-59) Primary hypertension I10 Hypertension type: primary hypertension Hypercholesterolemia E78.00 Nonischemic cardiomyopathy I42.8
[2024-08-24] MEDS: cefTRIAXone 1,000 mg SDV 1000 MG IVP (15:11)
[2024-08-24 16:27] LABS: Glucose Point of Care 124 mg/dL (70-110)
[2024-08-24] MEDS: magnesium oxide 400 mg tablet PO (17:15)
--- NOTE | 2024-08-24 19:04 | PC.NURSE ---
Asymptomatic non sustained vtach While starting pt on IV amio bolus, pt had a asymptomatic 2 sec nonsustained vtach while pt was talking to nurse.
[2024-08-24] MEDS: HYDROcodone-acetaminophen 10-325 mg Tablet 1 TAB PO (20:17)
[2024-08-24] MEDS: atorvastatin 40 mg Tablet PO (20:18)
[2024-08-24] MEDS: metoprolol tartrate 25 mg Tablet PO (20:18)
[2024-08-24 20:23] LABS: Glucose Point of Care 162 mg/dL (70-110)
[2024-08-25] VITALS (11 sets, daily range): BP systolic 119–128; BP diastolic 74–89; PULSE 77–93; RESP 13–22; TEMP 36.5–36.9; O2SAT 92–98
[2024-08-25] MEDS: HYDROcodone-acetaminophen 10-325 mg Tablet 1 TAB PO ×4 (02:04→19:56)
[2024-08-25 04:10] LABS: Basophils % 0.5 %; Eosinophils # 0.1 10^3/uL (0.0-0.8); Eosinophils % 2.3 %; Hematocrit 37.8 % (37-53); Lymphocytes # 0.6 10^3/uL (0.8-4.8); Lymphocytes % 15.9 %; Mean Corpuscular HGB Conc 30.2 g/dL (30-55); Mean Corpuscular Hemoglobin 33.1 pg (27-33); Mean Corpuscular Volume 109.9 fl (82-101); Mean Platelet Volume 11.2 fL (7.4-10.4); Monocytes # 0.5 10^3/uL (0.2-0.9); Monocytes % 11.3 %; Neutrophils # 2.75 10^3/uL (1.8-7.7); Neutrophils % 69.2 %; Nucleated Red Blood Cells % 0 %; Platelet Count 93 10^3/cmm (157-399); Red Blood Count 3.44 10^6/uL (3.85-5.65); Red Cell Distribution Width 17.4 % (12.1-15.1); White Blood Count 3.97 10^3/uL (3.29-11.43)
[2024-08-25 04:41] LABS: Alanine Aminotransferase 9 U/L (0-41); Albumin Level 2.9 g/dL (3.5-5.2); Alkaline Phosphatase 56 U/L (40-130); Anion Gap 9.8 (5-19); Aspartate Amino Transferase 12 U/L (0-40); Blood Urea Nitrogen 13 mg/dL (8-23); Calcium 8.1 mg/dL (8.5-10.5); Carbon Dioxide 36 mmol/L (22-29); Chloride 105 mmol/L (98-107); Creatinine Clr Calc Pharmacy 53.6806; Globulin 2.4 g/dL (1.3-4.6); Glucose 102 mg/dL (65-115); Osmolality Calculated 304 mOsm/kg (285-295); Potassium 3.8 mmol/L (3.5-5.1); Sodium 147 mmol/L (136-145); Total Bilirubin 0.6 mg/dL (0.15-1.2); Total Protein 5.3 g/dL (6.6-8.7)
[2024-08-25 04:42] LABS: Magnesium 1.5 mg/dL (1.7-2.3)
[2024-08-25 04:53] LABS: Folate Level 5.7 ng/mL (4.5-32.2)
[2024-08-25 06:12] LABS: Glucose Point of Care 104 mg/dL (70-110)
[2024-08-25] MEDS: magnesium oxide 400 mg tablet PO ×2 (07:37→17:06)
[2024-08-25] MEDS: finasteride 5 mg Tablet PO (07:37)
[2024-08-25] MEDS: pantoprazole DR 40 mg Tablet PO (07:37)
[2024-08-25] MEDS: metoprolol tartrate 25 mg Tablet PO ×2 (07:37→22:43)
[2024-08-25] MEDS: tamsulosin 0.4 mg Capsule PO (07:37)
[2024-08-25] MEDS: aspirin 81 mg EC Tablet PO (07:37)
[2024-08-25] MEDS: apixaban 5 mg Tablet PO ×2 (07:40→22:44)
[2024-08-25] MEDS: levalbuterol 1.25 mg/3 mL Neb INHALATION (08:20)
[2024-08-25] MEDS: ipratropium 0.5 mg/2.5 mL Neb INHALATION (08:20)
[2024-08-25] MEDS: amiodarone 200 mg Tablet PO ×2 (10:37→17:06)
[2024-08-25] MEDS: magnesium sulfate premix 1 GM/100 ML PIGGYBACK IV (10:37)
--- NOTE | 2024-08-25 10:47 | P.PN_ITS ---
<Statement entered by Shane Baker M.D - 08/26/24 12:45> Patient was cared for in conjunction with an advanced practice practitioner.? I reviewed the chart and all pertinent data including imaging, telemetry, and laboratory results.? I discussed the patient in detail with the advanced practice practitioner.? Please see? their note for complete progress note, testing results and agreed upon plan of care for the patient. Subjective 2 Subjective: Patient doing well overall today. He has responded well to amiodarone. Rates are currently well-controlled. Eliquis continued at 5 twice daily he denies any chest pain or breathing abnormalities at this time Vitals/I&O/Wt Last Vital Signs Temp 97.9 F 08/25/24 08:00 Pulse 93 08/25/24 08:20 Resp 18 08/25/24 08:20 BP 123/87 08/25/24 08:00 Pulse Ox 94 08/25/24 08:20 O2 Del Method Nasal Cannula 08/25/24 08:20 O2 Flow Rate 3 08/25/24 08:20 08/24/24 08/25/24 08/25/24 22:59 06:59 14:59 Intake Total 886 / 1784.25 200 / 200 Output Total 1350 / 1900 300 / 2200 150 / 150 Balance -464 / -115.75 -300 / -415.75 50 / 50 Weight last 48 hrs Weight 193 lb 11.2 oz Weight 201 lb Physical Exam 2 Narrative: General: No apparent distress, healthy appearing, well nourished HENMT: normoceophalic Muskuloskeletal: Full ROM Respiratory: Normal respiratory effort, left anteior lower lobe slightly diminished, no use of accessory muscles Cardio: No JVD, regular rate, regular rhythm, S1 S2 normal, no murmurs, peripheral pulses 2+ radial palpated bilaterally GI: Normal to inspection, nondistended Extremities: Full ROM, normal, normal capillary refill, no cyanosis or edema Neuro: Alert and oriented x4, no focal motor deficits Psych: Affect normal, denies suicidal ideation, mental status grossly normal Skin: No rashes or lesions noted, no wounds Data 08/25/24 03:56 08/25/24 03:56 A&P Assessment and plan (1) Atrial fibrillation: Qualifiers: Atrial fibrillation type: unspecified Qualified Code(s): I48.91 - Unspecified atrial fibrillation (2) Neurological symptoms: (3) Weakness: (4) CHF (congestive heart failure): Qualifiers: Heart failure chronicity: unspecified Heart failure type: unspecified Qualified Code(s): I50.9 - Heart failure, unspecified (5) CAD (coronary artery disease): (6) Diabetes mellitus: Qualifiers: Diabetes mellitus type: type 2 Diabetes mellitus chcf insulin use: without chcf use Diabetes mellitus complication status: with kidney complications Diabetes mellitus complication detail: with chronic kidney disease Chronic kidney disease stage: stage 3 (moderate) Chronic kidney disease stage 3 subtype: stage 3a (GFR 45-59) Qualified Code(s): E11.22 - Type 2 diabetes mellitus with diabetic chronic kidney disease; N18.31 - Chronic kidney disease, stage 3a (7) HTN (hypertension): Qualifiers: Hypertension type: primary hypertension Qualified Code(s): I10 - Essential (primary) hypertension (8) Hypercholesterolemia: Plan Patient doing well from cardiology standpoint rates are controlled on amiodarone drip. May transition to amiodarone 400 twice daily once 24 hours of drip has been established. Continue Eliquis for stroke prevention. Stress test was negative no chest pain or shortness of breath continue to medically manage CHF. Overall he is well compensated PDMP PDMP Reviewed: Not Reviewed Attestations 2 Medical Necessity Statement*: Defer to primary Coding Level of Care Code Acute Code for [facility] Fwd Diagnoses Atrial fibrillation, unspecified type I48.91 Atrial fibrillation type: unspecified Neurological symptoms R29.90 Weakness R53.1 Congestive heart failure, unspecified HF chronicity, unspecified heart failure type I50.9 Heart failure chronicity: unspecified Heart failure type: unspecified CAD (coronary artery disease) I25.10 Type 2 diabetes mellitus with stage 3a chronic kidney disease, without long-term current use of insulin E11.22; N18.31 Diabetes mellitus type: type 2 Diabetes mellitus chcf insulin use: without chcf use Diabetes mellitus complication status: with kidney complications Diabetes mellitus complication detail: with chronic kidney disease Chronic kidney disease stage: stage 3 (moderate) Chronic kidney disease stage 3 subtype: stage 3a (GFR 45-59) Primary hypertension I10 Hypertension type: primary hypertension Hypercholesterolemia E78.00
[2024-08-25 11:38] LABS: Glucose Point of Care 118 mg/dL (70-110)
--- NOTE | 2024-08-25 12:44 | PC.SOCIAL ---
IMM updated Updated pt on IMM. No questions voiced. Provided pt a copy. Initialed, dated, & timed copy in chart.
--- NOTE | 2024-08-25 15:09 | PM.PN ---
Subjective Subjective: No acute vents overnight. Heart rate better controlled. Patient remains in A-fib with RVR. States breathing better. Continues to remain on 3 L of oxygen supplementation. Blood pressure stable. More awake and alert today. Medications: Reviewed: Yes Vitals/I&O/Wt Last Vital Signs Temp 98.4 F 08/25/24 11:30 Pulse 84 08/25/24 14:24 Resp 16 08/25/24 14:24 BP 122/80 08/25/24 11:30 Pulse Ox 96 08/25/24 14:24 O2 Del Method Nasal Cannula 08/25/24 14:24 O2 Flow Rate 4 08/25/24 14:24 08/25/24 08/25/24 08/25/24 06:59 14:59 22:59 Intake Total 780 / 780 Output Total 300 / 2200 500 / 500 Balance -300 / -415.75 280 / 280 Weight last 48 hrs Weight 87.861 kg Weight 91.172 kg Physical Exam Narrative: General: No acute distress, AO x3, slow to respond HEENT: PERRLA, pupils bilaterally equal and reactive Chest: Normal vesicular breath sounds, no added sounds, equal good air entry bilaterally CVS: S1-S2 irregularly irregular, pansystolic murmur at apex, tachycardia, no gallops, no rubs Abdomen: Soft, nontender, no organomegaly, bowel sounds present Neuro: No focal deficits, no facial deformity, AO x3, power 3/5 in all limbs Data 08/25/24 03:56 08/25/24 03:56 A&P Assessment and plan (1) CHF (congestive heart failure): Qualifiers: Heart failure chronicity: acute Heart failure type: combined systolic and diastolic Qualified Code(s): I50.41 - Acute combined systolic (congestive) and diastolic (congestive) heart failure (2) Atrial fibrillation: Qualifiers: Atrial fibrillation type: persistent (not longstanding) Qualified Code(s): I48.19 - Other persistent atrial fibrillation (3) Neurological symptoms: (4) Weakness: (5) CAD (coronary artery disease): (6) Diabetes mellitus: Qualifiers: Diabetes mellitus type: type 2 Diabetes mellitus parts counterman insulin use: without detention use Diabetes mellitus complication status: with kidney complications Diabetes mellitus complication detail: with chronic kidney disease Chronic kidney disease stage: stage 3 (moderate) Chronic kidney disease stage 3 subtype: stage 3a (GFR 45-59) Qualified Code(s): E11.22 - Type 2 diabetes mellitus with diabetic chronic kidney disease; N18.31 - Chronic kidney disease, stage 3a (7) HTN (hypertension): Qualifiers: Hypertension type: primary hypertension Qualified Code(s): I10 - Essential (primary) hypertension (8) Hypercholesterolemia: (9) Nonischemic cardiomyopathy: Plan 73-year-old male with extensive cardiovascular history (atrial fibrillation, hypertension, hypercholesterolemia, CAD, TIAs) and CKD who presented with acute onset of slurred speech and bilateral limb weakness. MRI confirmed a mild recent ischemic infarct in the right parietal region. Patient has improved clinically to baseline. Additional findings include hypernatremia, worsened EF (45%), and urinary tract infection. Patient was seen by cardiology. Given worsening heart failure was taken Lexiscan which did not show any evidence of myocardial ischemia. Subsequently was transition back to Eliquis. # Acute Ischemic Stroke - Presenting symptoms of slurred speech and bilateral weakness. 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 - Patient has returned to baseline neurologically. - MRI confirms a mild recent ischemic infarct in the right parietal region - S/P Aspirn 325 mg PO x 1 on , now on 81 mg daily - Lipitor 40 mg daily - Continue neuro checks - PT/OT consult - ECHO noted newly found HF noted below, stess negative - Restarted on Eliquis 5 mg BID # Atrial Fibrillation with RVR and possible Suboptimal Anticoagulation? - Patient with known atrial fibrillation who suffered an ischemic stroke despite presumed anticoagulation with Eliquis likely due to medication non-adherence, or stroke from alternative etiology. - Restarted on Eliquid 5 mg BID Plan: - Continue to monitor on tele - Echo noted below - Continue eliquis - Cardiology consulted for control - If BP tolerates will start on B-Prabhakar # Newly Reduced Ejection Fraction (45%) - New finding of reduced EF to 45% from previously normal in 2022, with downtrending troponin suggesting possible recent cardiac injury. No active chest pain. Plan: Lexiscan as planned to evaluate for ischemia Initiate guideline-directed medical therapy for HFrEF: - Beta-prabhakar to resume - Will start KAREN-inhibitor once stable renal funciton - Also will consider aldactone and SGLT2 at discharge - Ischemic work up negative. # Urinary Tract Infection - Urinalysis showing pyuria (21-50 WBCs) and 4+ bacteria, with trace leukocyte esterase. Plan: - Urine culture to identify organism and sensitivities - Ceftriaxone 1g IV daily - Adjust antibiotics based on culture results # Chronic Kidney Disease - Baseline creatinine 1.7 mg/dL with acute increase to 2.2 mg/dL, now improved to 1.6 mg/dL. Hypernatremia (149 mEq/L) also present. Dx: - Monitor renal function daily - Adjust medication doses for renal function - Avoid nephrotoxic agents - Correct hypernatremia with free water replacement ( Cautious IV hydration ) # Thrombocytopenia - count decreased from 159 to 100, with history of chronic thrombocytopenia noted. Plan: - Monitor CBC dailys - Continue heparin with close monitoring for bleeding Chronic Problems # Benign Prostatic Hyperplasia - Continue home medications for BPH # Chronic Back Pain - Continue pain management with non-opioid analgesics as tolerated - Physical therapy consultation for strengthening exercises # Spinal Stenosis - Moderate spinal canal stenosis L3-S1 may contribute to lower extremity symptoms. No evidence of cord compression - Physical therapy consultation once acute neurological issues stabilized #Hypercholesterolemia - Continue atorvastatin #Gastric Ulcer/History of GI Bleed - Continue omeprazole 20 mg daily - Monitor for signs of GI bleeding while on anticoagulation Plan for the day: Heart rate better controlled. Continue with amiodarone drip as per protocol. Amiodarone 200 mg twice daily. Continue with metoprolol 25 mg twice daily. Monitor blood pressures. Goal blood pressure less than 140/90 mmHg. Patient continues to remain hypernatremic. Advised patient to increase oral intake of liquid. Hold off on IV fluids for now. Patient euvolemic today. Replace magnesium 1 mg. Potassium stable. Repeat BMP in afternoon. Continue with PT/OT. PDMP PDMP Reviewed: Not Reviewed Attestations Medical Necessity Statement*: Requires further hospitalization for management of A-fib with RVR while heart rate is better controlled, congestive heart failure, hypernatremia Diagnoses Acute combined systolic and diastolic congestive heart failure I50.41 Heart failure chronicity: acute Heart failure type: combined systolic and diastolic Persistent atrial fibrillation I48.19 Atrial fibrillation type: persistent (not longstanding) Neurological symptoms R29.90 Weakness R53.1 CAD (coronary artery disease) I25.10 Type 2 diabetes mellitus with stage 3a chronic kidney disease, without long-term current use of insulin E11.22; N18.31 Diabetes mellitus type: type 2 Diabetes mellitus parts counterman insulin use: without parts counterman use Diabetes mellitus complication status: with kidney complications Diabetes mellitus complication detail: with chronic kidney disease Chronic kidney disease stage: stage 3 (moderate) Chronic kidney disease stage 3 subtype: stage 3a (GFR 45-59) Primary hypertension I10 Hypertension type: primary hypertension Hypercholesterolemia E78.00 Nonischemic cardiomyopathy I42.8
[2024-08-25 16:26] LABS: Anion Gap 9.2 (5-19); Blood Urea Nitrogen 13 mg/dL (8-23); Calcium 8.3 mg/dL (8.5-10.5); Carbon Dioxide 35 mmol/L (22-29); Chloride 102 mmol/L (98-107); Creatinine Clr Calc Pharmacy 57.1423; Glucose 126 mg/dL (65-115); Osmolality Calculated 296 mOsm/kg (285-295); Potassium 4.2 mmol/L (3.5-5.1); Sodium 142 mmol/L (136-145)
[2024-08-25] MEDS: cefTRIAXone 1,000 mg SDV 1000 MG IVP (17:06)
[2024-08-25 17:33] LABS: Glucose Point of Care 182 mg/dL (70-110)
[2024-08-25] MEDS: insulin lispro 100 unit/1 mL SUBCUT (18:24)
--- NOTE | 2024-08-25 20:39 | PC.NURSE ---
Patient endorses left side dullness at this time, patient still has slight left mouth droop, and slurred speech. Per patient regarding dullness I think its been there but I'm not sure . 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
[2024-08-25 20:52] LABS: Glucose Point of Care 103 mg/dL (70-110)
[2024-08-25] MEDS: atorvastatin 40 mg Tablet PO (22:43)
[2024-08-26] VITALS: BP 120/84; PULSE 75; RESP 20; TEMP 36.8; O2SAT 100
[2024-08-26 03:14] LABS: Basophils % 0.5 %; Eosinophils # 0.2 10^3/uL (0.0-0.8); Eosinophils % 3.7 %; Lymphocytes # 0.6 10^3/uL (0.8-4.8); Lymphocytes % 13.5 %; Mean Corpuscular HGB Conc 29.8 g/dL (30-55); Mean Corpuscular Hemoglobin 33.1 pg (27-33); Mean Corpuscular Volume 111.1 fl (82-101); Mean Platelet Volume 11.1 fL (7.4-10.4); Monocytes # 0.4 10^3/uL (0.2-0.9); Neutrophils # 3.09 10^3/uL (1.8-7.7); Neutrophils % 71.8 %; Nucleated Red Blood Cells % 0 %; Platelet Count 101 10^3/cmm (157-399); Red Blood Count 3.69 10^6/uL (3.85-5.65); Red Cell Distribution Width 17.3 % (12.1-15.1)
[2024-08-26 03:43] LABS: Alanine Aminotransferase 8 U/L (0-41); Albumin Level 3.1 g/dL (3.5-5.2); Alkaline Phosphatase 64 U/L (40-130); Anion Gap 8.4 (5-19); Aspartate Amino Transferase 12 U/L (0-40); Blood Urea Nitrogen 13 mg/dL (8-23); Calcium 8.4 mg/dL (8.5-10.5); Carbon Dioxide 36 mmol/L (22-29); Chloride 105 mmol/L (98-107); Creatinine Clr Calc Pharmacy 48.9791; Globulin 2.4 g/dL (1.3-4.6); Glucose 84 mg/dL (65-115); Osmolality Calculated 299 mOsm/kg (285-295); Potassium 4.4 mmol/L (3.5-5.1); Sodium 145 mmol/L (136-145); Total Bilirubin 0.5 mg/dL (0.15-1.2); Total Protein 5.5 g/dL (6.6-8.7)
[2024-08-26] MEDS: HYDROcodone-acetaminophen 10-325 mg Tablet 1 TAB PO ×3 (03:44→14:47)
[2024-08-26 03:46] LABS: Magnesium 1.9 mg/dL (1.7-2.3)
[2024-08-26 03:50] VITALS: BP 125/93; RESP 24; TEMP 36.5; O2SAT 93
[2024-08-26 04:00] VITALS: BP 120/83; PULSE 75; RESP 20; TEMP 36.8; O2SAT 98
[2024-08-26 06:22] LABS: Glucose Point of Care 94 mg/dL (70-110)
[2024-08-26 07:29] VITALS: BP 128/88; PULSE 83; RESP 23; TEMP 36.6; O2SAT 96
[2024-08-26 08:18] VITALS: PULSE 97; RESP 16; O2SAT 94
--- NOTE | 2024-08-26 08:49 | P.DS_ITS ---
Discharge Providers Date of Admission: 08/21/24 16:21 Date of Discharge: August 26, 2024 Attending Provider at Admission: Jonel Sánchez Attending Provider at Discharge: Arthur Viveros MD Consults: Cardiology: Dr. Baker Primary Care Provider: TWYLA BETANCOURT MD Diagnoses at Discharge Discharge Diagnosis (1) CHF (congestive heart failure): Status: Acute Qualifiers: Heart failure chronicity: acute Heart failure type: combined systolic and diastolic Qualified Code(s): I50.41 - Acute combined systolic (congestive) and diastolic (congestive) heart failure (2) Atrial fibrillation: Status: Acute Qualifiers: Atrial fibrillation type: persistent (not longstanding) Qualified Code(s): I48.19 - Other persistent atrial fibrillation (3) Neurological symptoms: Status: Acute (4) Weakness: Status: Acute (5) CAD (coronary artery disease): Status: Acute (6) Diabetes mellitus: Status: Acute Qualifiers: Chronic kidney disease stage: stage 3 (moderate) Chronic kidney disease stage 3 subtype: stage 3a (GFR 45-59) Diabetes mellitus complication detail: with chronic kidney disease Diabetes mellitus complication status: with kidney complications Diabetes mellitus fdc insulin use: without watermaster use Diabetes mellitus type: type 2 Qualified Code(s): E11.22 - Type 2 diabetes mellitus with diabetic chronic kidney disease; N18.31 - Chronic kidney disease, stage 3a (7) HTN (hypertension): Status: Acute Qualifiers: Hypertension type: primary hypertension Qualified Code(s): I10 - Essential (primary) hypertension (8) Hypercholesterolemia: Status: Acute (9) Nonischemic cardiomyopathy: Status: Acute Reason for Visit Reason for Visit: dysphasia Brief History: 73-year-old male with a past medical his tory of atrial fibrillation, hypertension, hypercholesterolemia, diabetes mellitus (not on medication), transient ischemic attacks (TIAs), coronary artery disease, left knee replacement, benign prostatic hyperplasia (BPH), gastric ulcer, anemia, history of gastrointestinal bleed, erectile dysfunction, kidney stones, and chronic kidney disease presents with acute onset of weakness and slurred speech. Symptoms began last night around 9:30 PM after the Patient got off a boat. Neighbors noted slurred speech and difficulty moving his legs. The Patient stated, I couldn't move my legs. This morning, neighbors again noted slurred speech. The Patient also reports new-onset bilateral hand weakness, causing him to drop objects. He denies any unilateral weakness. The Patient reports chronic back pain radiating down his left leg. He uses a cane due to chronic left knee problems. He denies recent fever, chills, or respiratory symptoms. He reports possible hematuria but denies hematochezia. Hospital Course Hospital Course Patient was admitted to the hospital further evaluation and management. On admission there was a concern for acute ischemic stroke for which he underwent stroke workup with CT head and CTA head and neck. 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 He was seen by PT/OT and speech evaluation during hospitalization and diet was advanced accordingly. His Eliquis at. Transition to heparin drip. Echocardiogram was done which showed a new EF of 45%. Patient underwent Lexiscan stress during hospitalization which was negative for acute ischemia. It is believed patient has nonischemic cardiomyopathy. He did have episode of A-fib with RVR which were managed with amiodarone drip. His Hamil heart rate has been stable after being transition from IV to oral amiodarone. He has been started on metoprolol and ARB's for guideline directed medical therapy for congestive heart failure. Patient was counseled detail about lifestyle modification with new diagnosis of congestive heart failure. He has been discharged back home in hemodynamically stable condition with advised to follow-up with his PCP within next 1 week, cardiology team within next 1 month. Discharge Data Studies Completed and Pending Completed Studies During Hospitalization Category Date Time Status CT angio head neck [CT angio headneck* [id number]/71260] Cat Scan 08/21/24 13:[address] chest wo con [id number] Routine Cat Scan 08/23/24 03:[address] head thrombolytic [id number] Stat Cat Scan 08/21/24 12:50 Completed CXRP [XR chest 1V portable [id number]] Stat Exams 08/22/24 23:11 Completed Sestamibi Stress Test Request Routine Exams 08/22/24 15:34 Draft XR chest 1V portable [id number] Routine Exams 08/24/24 09:34 Completed XR chest 1V portable [id number] Stat Exams 08/21/24 16:19 Completed MR head wo con* [id number] Routine MRI 08/22/24 11:52 Completed MR lumbar spine wo con* [id number] Stat MRI 08/21/24 14:27 Completed NM jd perf SPECT r/s* [id number] Routine Nuc Med 08/23/24 15:34 Completed CV. echo complete* [id number] Routine Ultrasound 08/21/24 16:22 Completed Pending at discharge Category Date Time Status MAG [Magnesium] AM LABS Lab 08/27/24 04:00 Ordered Urine Culture Stat Lab 08/21/24 17:35 Results Radiology Impressions Head CT 08/21/24 12:50 IMPRESSION: No acute intracranial abnormality. ASSESSMENT: ASPECTS ([place] Stroke Program Early CT Score) is 10. ADDENDUM: 08/21/24 1310 IDANIA FREY acknowledged receipt of report at 08/21/2024 1:08 PM CDT. 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 IMPRESSION: Mild proximal right ICA stenosis. REFERENCES: NASCET CRITERIA. The degree of stenosis in the cervical segment of the internal carotid artery is based on NASCET criteria. Normal is no stenosis. Mild is less than 50% stenosis. Moderate is 50-69% stenosis. Severe is 70% to 99% stenosis. Total occlusion is no detectable patent lumen. Lumbar Spine MRI 08/21/24 14:27 IMPRESSION: 1. Multilevel, multifactorial lumbar spine degenerative changes with severe right neural foraminal stenosis at L4-L5 and L5-S1, moderate to severe left neural foraminal stenosis at L3-L4 and L4-L5, and effacement of the right subarticular recess at L5-S1. Moderate spinal canal stenosis from L3-S1. 2. T11-12 moderate spinal canal and bilateral neural foraminal stenosis. Head MRI 08/22/24 11:52 IMPRESSION: 1. A mild area of restricted diffusion at the mid superior right parietal level around the islas-white matter junction region consistent with mild recent ischemic infarct (not visualized or apparent on noncontrast CT head 1 day ago). 2. Exam is otherwise negative. No hemorrhage or mass effect. Chest CT 08/23/24 03:42 IMPRESSION: Emphysematous changes. Pleural effusions. Chronic appearing inflammatory changes bases. No definite superimposed acute consolidation. COMMENTS: The presence of pulmonary emphysema on CT is an independent risk factor for lung cancer. In the absence of a history or active diagnosis of lung cancer, it is recommended that this patient with emphysema be evaluated for enrollment in a low dose CT lung cancer screening program. Chest X-Ray 08/24/24 09:34 IMPRESSION: Equivocal interval change compared to the previous examination as above. Echocardiogram: CONCLUSIONS LV systolic function is mildly reduced with EF of 40-45% Biatrial dilation Mild mitral regurgitation Mild tricuspid regurgitation Trace pulmonic regurgitation Small pericardial effusion Compared to prior echocardiogram from 2022, patient has mildly reduced LV systolic function and has small sized pericardial effusion. Shane Baker MD (Electronically Signed) Final Date: 22 August 2024 Lexiscan stress test: PERFUSION FINDINGS SPECT images demonstrate homogeneous tracer distribution throughout the myocardium. FUNCTIONAL RESULTS (calculated via Gated SPECT) Stress Image LV EF (%): 61 Stress EDV (mL):84 TID: 1.05 Stress ESV (mL):33 FUNCTIONAL FINDINGS: There is normal left ventricular systolic function. IMPRESSIONS 1. Normal myocardial perfusion imaging with no evidence of ischemia. 2. LV systolic function is normal Shane Baker MD (Electronically Signed) Final Date: 23 August 2024 Laboratory Results WBC 4.30 10^3/uL (3.29-11.43) 08/26/24 03:00 RBC 3.69 10^6/uL (3.85-5.65) L 08/26/24 03:00 Hgb 12.20 g/dL (11.27-16.99) 08/26/24 03:00 Hct 41.0 % (37-53) 08/26/24 03:00 MCV 111.1 fl (82-101) H 08/26/24 03:00 MCH 33.1 pg (27-33) H 08/26/24 03:00 MCHC 29.8 g/dL (30-55) L 08/26/24 03:00 RDW 17.3 % (12.1-15.1) H 08/26/24 03:00 Plt Count 101 10^3/cmm (157-399) L 08/26/24 03:00 MPV 11.1 fL (7.4-10.4) H 08/26/24 03:00 Neut % (Auto) 71.8 % 08/26/24 03:00 Lymph % (Auto) 13.5 % 08/26/24 03:00 Norman % (Auto) 10.0 % 08/26/24 03:00 Eos % (Auto) 3.7 % 08/26/24 03:00 Baso % (Auto) 0.5 % 08/26/24 03:00 Neut # (Auto) 3.09 10^3/uL (1.8-7.7) 08/26/24 03:00 Lymph # (Auto) 0.6 10^3/uL (0.8-4.8) L 08/26/24 03:00 Norman # (Auto) 0.4 10^3/uL (0.2-0.9) 08/26/24 03:00 Eos # (Auto) 0.2 10^3/uL (0.0-0.8) 08/26/24 03:00 Baso # (Auto) 0.0 10^3/uL (0.0-0.1) 08/26/24 03:00 Nucleated RBC % (auto) 0 % 08/26/24 03:00 Nucleated RBCs # 0.0 /100WBC 08/26/24 03:00 PT 16.50 SECONDS (12.1-14.9) H 08/21/24 13:09 INR 1.24 (0.8-1.2) H 08/21/24 13:09 APTT 37.9 SECONDS (23.9-36.7) H 08/23/24 19:05 Sodium 145 mmol/L (136-145) 08/26/24 03:00 Potassium 4.4 mmol/L (3.5-5.1) 08/26/24 03:00 Chloride 105 mmol/L (98-107) 08/26/24 03:00 Carbon Dioxide 36 mmol/L (22-29) H 08/26/24 03:00 Anion Gap 8.4 (5-19) 08/26/24 03:00 BUN 13 mg/dL (8-23) 08/26/24 03:00 Creatinine 1.4 mg/dL (0.7-1.2) H 08/26/24 03:00 GFR Calculation Not Reportable 08/26/24 03:00 Glucose 84 mg/dL (65-115) 08/26/24 03:00 POC Glucose 94 mg/dL (70-110) 08/26/24 06:11 Estimat Average Glucose 105 08/24/24 05:32 Hemoglobin A1c 5.3 % (4.0-6.0) 08/24/24 05:32 Calculated Osmolality 299 mOsm/kg (285-295) H 08/26/24 03:00 Calcium 8.4 mg/dL (8.5-10.5) L 08/26/24 03:00 Phosphorus 2.0 mg/dL (2.5-4.5) L 08/22/24 22:32 Magnesium 1.9 mg/dL (1.7-2.3) 08/26/24 03:00 Iron 43 ug/dL (59-158) L 08/24/24 05:32 TIBC 224 mcg/dl 08/24/24 05:32 % Saturation 19.1 % (20-50) L 08/24/24 05:32 Unsat Iron Binding 181 ug/dL (112-347) 08/24/24 05:32 Total Bilirubin 0.5 mg/dL (0.15-1.2) 08/26/24 03:00 AST 12 U/L (0-40) 08/26/24 03:00 ALT 8 U/L (0-41) 08/26/24 03:00 Alkaline Phosphatase 64 U/L (40-130) 08/26/24 03:00 Creatine Kinase 35 U/L (39-308) L 08/21/24 13:09 Troponin T 5th Gen ng/L 103 ng/L (0-15) H* 08/22/24 11:33 Troponin T Baseline 92 ng/L (0-15) H 08/22/24 22:32 Troponin T 120 Minute 89.25 ng/L (0-15) H 08/23/24 00:51 Delta Troponin T -2.75 ABS# (0-10) L 08/23/24 00:51 Troponin T Hi Sens 6Hr 97.93 ng/L (0-15) H 08/23/24 04:48 Troponin T Hi Sens 6Hr Delta 5.93 ng/L (0-12) 08/23/24 04:48 NT-Pro-B Natriuret Pep 16284 pg/mL (0-125) H 08/22/24 22:32 Total Protein 5.5 g/dL (6.6-8.7) L 08/26/24 03:00 Albumin 3.1 g/dL (3.5-5.2) L 08/26/24 03:00 Globulin 2.4 g/dL (1.3-4.6) 08/26/24 03:00 Triglycerides 72 mg/dL (0-150) 08/22/24 04:31 Cholesterol 69 mg/dL (0-200) 08/22/24 04:31 LDL Cholesterol, Calc 31 mg/dL (50-129) L 08/22/24 04:31 HDL Cholesterol 24 mg/dL (60-100) L 08/22/24 04:31 LDL/HDL Ratio 1.29 RATIO (0.00-3.22) 08/22/24 04:31 Cholesterol/HDL Ratio 2.88 mg/dL (1.0-5.00) 08/22/24 04:31 Vitamin B12 616 pg/mL (232-1245) 08/23/24 04:48 Folate 5.7 ng/mL (4.5-32.2) 08/25/24 03:56 Procalcitonin 0.12 ng/mL (0-0.5) 08/24/24 05:32 TSH 2.46 uIU/mL (0.27-4.20) 08/24/24 05:32 Urine Color Yellow (Yellow) 08/21/24 17:35 Urine Appearance Clear (CLEAR) 08/21/24 17:35 Urine pH 5 (5-7) 08/21/24 17:35 Ur Specific [place] 1.010 (1.005-1.030) 08/21/24 17:35 Urine Protein Trace (Negative) 08/21/24 17:35 Urine Glucose (UA) Norm (Normal) 08/21/24 17:35 Urine Ketones Negative (Negative) 08/21/24 17:35 Urine Blood 2+ (Negative) H 08/21/24 17:35 Urine Nitrate Negative (Negative) 08/21/24 17:35 Urine Bilirubin 1+ (Negative) H 08/21/24 17:35 Urine Urobilinogen 4 mg/dL (Negative) H 08/21/24 17:35 Ur Leukocyte Esterase Trace (Negative) H 08/21/24 17:35 Urine RBC 3-5 /hpf (0-2) 08/21/24 17:35 Urine WBC 21-50 /hpf (0-5) H 08/21/24 17:35 Ur Squamous Epith Cells 0-5 /hpf (0-5) 08/21/24 17:35 Amorphous Sediment Not Reportable 08/21/24 17:35 Urine Bacteria 4+ /hpf (NONE) H 08/21/24 17:35 Hyaline Casts 15.28 /lpf 08/21/24 17:35 Urine Opiates Screen Positive ng/mL (Negative) H 08/21/24 17:35 Ur Barbiturates Screen Negative ng/mL (Negative) 08/21/24 17:35 Ur Phencyclidine Scrn Negative ng/mL (Negative) 08/21/24 17:35 Ur Amphetamines Screen Negative ng/mL (Negative) 08/21/24 17:35 U Benzodiazepines Scrn Negative ng/mL (Negative) 08/21/24 17:35 Urine Cocaine Screen Negative ng/mL (Negative) 08/21/24 17:35 U Marijuana (THC) Screen Negative ng/mL (Negative) 08/21/24 17:35 Vitals Last Vital Signs Temp 97.9 F 08/26/24 07:29 Pulse 97 08/26/24 08:18 Resp 16 08/26/24 08:18 BP 128/88 08/26/24 07:29 Pulse Ox 94 08/26/24 08:18 O2 Del Method Nasal Cannula 08/26/24 08:18 O2 Flow Rate 2 08/26/24 08:18 Discharge Plan Discharge Patient Disposition: Home Health Service Condition: Stable Prescriptions: New amiodarone [Pacerone] 200 mg Tablet 200 mg PO DAILY Qty: 60 3RF Rx Instructions: 200 mg twice daily for 1 week followed by 200 mg daily aspirin 81 mg Tablet,Delayed Release (Dr/Ec) 81 mg PO DAILY Qty: 30 0RF metoprolol tartrate 25 mg Tablet 25 mg PO BID@0900,2100 Qty: 60 0RF irbesartan 75 mg tablet 75 mg PO DAILY Qty: 30 0RF Continued omeprazole magnesium [Acid Consumer Loan Officer (omeprazole)] 20 mg capsule,delayed release(DR/EC) 20 mg PO DAILY finasteride 5 mg tablet 5 mg PO DAILY atorvastatin 20 mg tablet 20 mg PO DAILY nitroglycerin 0.4 mg tablet, sublingual 0.4 mg sublingual Q5M PRN (Reason: chest pain) Qty: 30 5RF Rx Instructions: do not exceed 3 doses per episode Eliquis 5 mg tablet 5 mg PO BID Qty: 180 3RF tamsulosin 0.4 mg capsule 0.4 mg PO DAILY vitamin B complex Tablet 1 tab PO DAILY pregabalin 200 mg capsule 200 mg PO BID PRN (Reason: nerve pain) calcium citrate 250 mg calcium Tablet 250 mg PO DAILY magnesium oxide 400 mg (241.3 mg magnesium) Tablet 400 mg PO BID Qty: 60 0RF hydrocodone-acetaminophen 10-325 mg tablet 1 tab PO Q6H PRN (Reason: pain) Qty: 20 0RF Changed furosemide 40 mg tablet 40 mg PO DAILY PRN (Reason: Edema) Qty: 90 3RF Discontinued isosorbide mononitrate 30 mg tablet extended release 24 hr 30 mg PO DAILY Qty: 90 0RF irbesartan 300 mg tablet 300 mg PO DAILY Discharge Orders: Discharge Order (Routine); Ordered 08/26/24 Ordered By: Arthur Viveros Other Ambulatory Orders: DME: Jay (Order) Location: None Selected Ordered By: Jonel Sánchez Referrals: [facility] [Outside] [facility] [Outside] Daksha Oleary NP [Nurse Practitioner] - 08/30/24 9:15 am Tobi Rob MD [Physician] - (We have notified your physician's clinic of the need for a follow-up appointment to be scheduled. If you have not heard from them within the next 2 business days, please call them directly. ) Kenia Salguero MD [Physician] - 01/03/25 3:15 pm TWYLA BETANCOURT MD [Primary Care Provider] - 08/31/24 10:40 am (APPOINTMENT WITH DR VELASQUEZ AT [facility]- patient will need medicaid ride on d/c ) Discharge Diet: Cardiac Discharge Activity: Resume usual activity and Increase activity as tolerated Patient Instructions: Acute Wound Care (DC), Altered Mental Status (ED), Opioid Safety, Post Anesthesia Care Activity Restrictions/Additional Instructions: Restrict fluid intake to less than 1500 cc, salt intake to less than 2 g daily. Advised to check his weight daily at home. Is advised that weight today would be the dry weight and if body weight increases by around 5 pounds, patient is to take an extra dose of Lasix daily till body weight comes down to weight today. If not able to come down to dry body weight in 1 week, then is to call cardiology office for further recommendations. Patient was counseled in detail to take medications regularly as prescribed. Discharge Attestations Time Spent in Discharge Care*: greater than 30 min Specific Discharge Activities: educating patient, discussing with pcp/other providers, discussing with nurse outreach case manager/social workers/dc planners, documenting/other paperwork and evaluating patient/reviewing data Status at Discharge: Cognitive status at discharge: cognitively intact , Behavioral status at discharge: cooperative , Functional status at discharge: uses cane/walker , Overall status at discharge: patient is back to baseline Quality Metrics Clinical Quality Measures [ No reported AMI, CVA or VTE this stay] Coding Level of Care Code 79668 Total time (in minutes) for Discharge: 70 Diagnoses Acute combined systolic and diastolic congestive heart failure I50.41 Heart failure chronicity: acute Heart failure type: combined systolic and diastolic Persistent atrial fibrillation I48.19 Atrial fibrillation type: persistent (not longstanding) Neurological symptoms R29.90 Weakness R53.1 CAD (coronary artery disease) I25.10 Type 2 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
[2024-08-26] MEDS: finasteride 5 mg Tablet PO (09:22)
[2024-08-26] MEDS: tamsulosin 0.4 mg Capsule PO (09:22)
[2024-08-26] MEDS: pantoprazole DR 40 mg Tablet PO (09:22)
[2024-08-26] MEDS: magnesium oxide 400 mg tablet PO (09:22)
[2024-08-26] MEDS: aspirin 81 mg EC Tablet PO (09:22)
[2024-08-26] MEDS: apixaban 5 mg Tablet PO (09:22)
[2024-08-26] MEDS: amiodarone 200 mg Tablet PO (09:22)
[2024-08-26] MEDS: metoprolol tartrate 25 mg Tablet PO (09:22)
[2024-08-26 11:46] LABS: Glucose Point of Care 88 mg/dL (70-110)
[2024-08-26 12:00] VITALS: BP 127/88; PULSE 83; RESP 12; TEMP 36.6; O2SAT 84; O2SAT 93; O2SAT 99
--- NOTE | 2024-08-26 13:15 | P.PN_ITS ---
<Statement entered by Shane Baker M.D - 08/27/24 12:43> Patient was cared for in conjunction with an advanced practice practitioner.? I reviewed the chart and all pertinent data including imaging, telemetry, and laboratory results.? I discussed the patient in detail with the advanced practice practitioner.? Please see? their note for progress note, testing results and agreed upon plan of care for the patient. Subjective 2 Subjective: Patient doing well without complaints this morning. Heart rate is still well- controlled. Vitals/I&O/Wt Last Vital Signs Temp 97.9 F 08/26/24 12:00 Pulse 83 08/26/24 12:00 Resp 12 08/26/24 12:00 BP 127/88 08/26/24 12:00 Pulse Ox 84 L 08/26/24 12:00 O2 Del Method Nasal Cannula 08/26/24 12:00 O2 Flow Rate 3 08/26/24 12:00 08/25/24 08/26/24 08/26/24 22:59 06:59 14:59 Intake Total 680 / 1460 100 / 1560 960 / 960 Output Total 600 / 1100 200 / 1300 Balance 80 / 360 -100 / 260 960 / 960 Weight last 48 hrs Weight 193 lb 3.2 oz Weight 193 lb 11.2 oz Physical Exam 2 Narrative: General: No apparent distress, healthy appearing, well nourished HENMT: normoceophalic Muskuloskeletal: Full ROM Respiratory: Normal respiratory effort, slight crackles bilateral lower lobes otherwise clear throughout, no use of accessory muscles Cardio: No JVD, regular rate, regular rhythm, S1 S2 normal, no murmurs, peripheral pulses 2+ radial palpated bilaterally GI: Normal to inspection, nondistended Extremities: Full ROM, normal, normal capillary refill, no cyanosis, trace edema bilateral lower extremity Neuro: Alert and oriented x4, no focal motor deficits Psych: Affect normal, denies suicidal ideation, mental status grossly normal Skin: No rashes or lesions noted, no wounds Data 08/26/24 03:00 08/26/24 03:00 A&P Assessment and plan (1) Atrial fibrillation: Qualifiers: Atrial fibrillation type: persistent (not longstanding) Qualified Code(s): I48.19 - Other persistent atrial fibrillation (2) Neurological symptoms: (3) Weakness: (4) CHF (congestive heart failure): Qualifiers: Heart failure chronicity: acute Heart failure type: combined systolic and diastolic Qualified Code(s): I50.41 - Acute combined systolic (congestive) and diastolic (congestive) heart failure (5) CAD (coronary artery disease): (6) Diabetes mellitus: Qualifiers: Diabetes mellitus type: type 2 Diabetes mellitus payroll associate insulin use: without payroll associate use Diabetes mellitus complication status: with kidney complications Diabetes mellitus complication detail: with chronic kidney disease Chronic kidney disease stage: stage 3 (moderate) Chronic kidney disease stage 3 subtype: stage 3a (GFR 45-59) Qualified Code(s): E11.22 - Type 2 diabetes mellitus with diabetic chronic kidney disease; N18.31 - Chronic kidney disease, stage 3a (7) HTN (hypertension): Qualifiers: Hypertension type: primary hypertension Qualified Code(s): I10 - Essential (primary) hypertension (8) Hypercholesterolemia: Plan Patient doing well from cardiology standpoint rates are controlled on amiodarone drip. May continue amiodarone. Continue Eliquis for stroke prevention. Stress test was negative no chest pain or shortness of breath continue to medically manage CHF. Overall he is well compensated. PDMP PDMP Reviewed: Not Reviewed Attestations 2 Medical Necessity Statement*: Deferred to primary Coding Level of Care Code Acute Code for [facility] Fwd Diagnoses Persistent atrial fibrillation I48.19 Atrial fibrillation type: persistent (not longstanding) Neurological symptoms R29.90 Weakness R53.1 Acute combined systolic and diastolic congestive heart failure I50.41 Heart failure chronicity: acute Heart failure type: combined systolic and diastolic CAD (coronary artery disease) I25.10 Type 2 diabetes mellitus with stage 3a chronic kidney disease, without long-term current use of insulin E11.22; N18.31 Diabetes mellitus type: type 2 Diabetes mellitus payroll associate insulin use: without longterm use Diabetes mellitus complication status: with kidney complications Diabetes mellitus complication detail: with chronic kidney disease Chronic kidney disease stage: stage 3 (moderate) Chronic kidney disease stage 3 subtype: stage 3a (GFR 45-59) Primary hypertension I10 Hypertension type: primary hypertension Hypercholesterolemia E78.00
--- NOTE | 2024-08-26 15:09 | PC.NURSE ---
Patient discharged to home. Instruction provided regarding follow up needs and new medication. Patient verbalized understanding. Patient left with portable O2 concentrator, home medications, and personal belongings. Patient reports missing wallet. Security has been notified along with laborer beam house.
== END 2024-08-26 15:44 | disposition home health service (06) | DRG 64 ==
LOC: ER 15:18 → ER IP 16:38 → MEDSURG 19:00 → CSU 08-24 12:12
PROVIDERS: Internal Medicine; Admitting Provider Hospitalist; Emergency Provider Emergency Medicine; PCP Family Medicine; Visit Provider Student in an Organized Health Care Education/Training Program
DX: I63.89 Other cerebral infarction (principal); I50.41 Acute combined systolic (congestive) and diastolic (congestive) heart failure; E87.0 Hyperosmolality and hypernatremia; I48.19 Other persistent atrial fibrillation; I13.0 Hypertensive heart and chronic kidney disease with heart failure and stage 1 through stage 4 chronic kidney disease, or unspecified chronic kidney disease; I42.8 Other cardiomyopathies; Q28.1 Other malformations of precerebral vessels; N39.0 Urinary tract infection, site not specified; N17.9 Acute kidney failure, unspecified; I25.10 Atherosclerotic heart disease of native coronary artery without angina pectoris; E11.22 Type 2 diabetes mellitus with diabetic chronic kidney disease; N18.31 Chronic kidney disease, stage 3a; E78.00 Pure hypercholesterolemia, unspecified; R53.1 Weakness; Z96.652 Presence of left artificial knee joint; N40.0 Benign prostatic hyperplasia without lower urinary tract symptoms; N52.9 Male erectile dysfunction, unspecified; R47.81 Slurred speech; I65.21 Occlusion and stenosis of right carotid artery; I25.2 Old myocardial infarction; Z79.01 Long term (current) use of anticoagulants; D69.6 Thrombocytopenia, unspecified; G89.29 Other chronic pain; M48.061 Spinal stenosis, lumbar region without neurogenic claudication; M48.07 Spinal stenosis, lumbosacral region; K25.9 Gastric ulcer, unspecified as acute or chronic, without hemorrhage or perforation; R07.9 Chest pain, unspecified; J44.9 Chronic obstructive pulmonary disease, unspecified; R29.810 Facial weakness; R29.706 NIHSS score 6; Y92.814 Boat as the place of occurrence of the external cause; Z79.899 Other long term (current) drug therapy; Z87.891 Personal history of nicotine dependence; Z98.61 Coronary angioplasty status; V94.89XA Other water transport accident, initial encounter; Z86.73 Personal history of transient ischemic attack (TIA), and cerebral infarction without residual deficits
CPT/HCPCS: 36415; 36416; 70450; 70496; 70498; 70551; 71045; 71250; 72148; 78452; 80048; 80053; 80061; 80306; 81003; 82550; 82607; 82746; 82962; 83036; 83540; 83550; 83735; 83880; 84100; 84145; 84443; 84484; 85025; 85610; 85730; 87077; 87086; 87186; 92507; 92523; 92526; 92610; 93005; 93017; 93306; 94640; 94760; 96372; 96375; 96376; 97161; 97165; 97530; 97535; 99285; A4222; A9500; J0283; J0696; J1644; J1815; J1940; J2270; J2785; J3475; J3490; J7030; J7070; J7120; J7614; J7644; J9999; P9046

== ENCOUNTER → 2024-12-13 13:47 | Outpatient (BNVA) | payer MEDICARE, MEDICAID, SELFPAY | PROVIDERS: PCP Family Medicine; Visit Provider Internal Medicine Cardiovascular Disease | DX: I25.10 Atherosclerotic heart disease of native coronary artery without angina pectoris (principal); E78.00 Pure hypercholesterolemia, unspecified; I11.0 Hypertensive heart disease with heart failure; I50.9 Heart failure, unspecified; I48.91 Unspecified atrial fibrillation; Z79.01 Long term (current) use of anticoagulants; Z79.82 Long term (current) use of aspirin; E11.9 Type 2 diabetes mellitus without complications; Z98.61 Coronary angioplasty status; Z86.73 Personal history of transient ischemic attack (TIA), and cerebral infarction without residual deficits; Z87.891 Personal history of nicotine dependence; I25.2 Old myocardial infarction | CPT/HCPCS: 99214 ==

== ENCOUNTER 2025-04-12 12:40 | Outpatient (CLI) | payer MEDICARE, MEDICAID, SELFPAY ==
--- NOTE | 2025-04-12 12:48 | US_ITS ---
WS: [id number] RENAL ULTRASOUND HISTORY: NEPHROLITHIASIS/HEMATURIA/FLANK PAIN COMPARISON: 03/16/2019 TECHNIQUE: 2-D and color Doppler imaging of the kidney submitted. Right kidney: 8.6 cm x 5.3 cm x 5.2 cm. Cortex: 1.0 cm Mild atrophy RIGHT kidney with diffuse cortical thinning and increased echogenicity. Mild atrophy is become more pronounced as compared to the prior study from 2019. Cortical cyst upper pole measures 2.8 x 2.4 x 2.6 cm. There is an additional cortical cyst which is not as well visualized also labeled s uperior pole. Left kidney: 9.4 cm x 4.1 cm x 4.5 cm. Cortex: 1.1 cm Normal size kidney. No hydronephrosis. There is shadowing from the renal pelvis. Nonobstructing renal calcifications identified with the largest measuring 1.2 cm. No solid mass. Aorta: Normal. Urinary Bladder: Well-distended bladder. No intraluminal filling defect. US/US renal BI* [id number] IMPRESSION: 1. No hydronephrosis or renal obstruction. 2. Nonobstructing LEFT renal calcifications. The largest calcification measure s 1.2 cm. 3. RIGHT renal cysts. Largest cyst superior pole 2.8 x 2.4 x 2.6 cm. 4. Mild atrophy RIGHT kidney.
== END 2025-04-12 12:41 | disposition home or self-care (01) ==
LOC: RAD 12:42
PROVIDERS: PCP Family Medicine; Visit Provider Registered Nurse
DX: N20.0 Calculus of kidney (principal); R31.9 Hematuria, unspecified; R10.24 Suprapubic pain; N28.1 Cyst of kidney, acquired; N26.1 Atrophy of kidney (terminal); R10.9 Unspecified abdominal pain; N28.89 Other specified disorders of kidney and ureter
CPT/HCPCS: 76770

== ENCOUNTER 2025-05-12 16:25 | Outpatient (CLI) | payer MEDICARE, MEDICAID, SELFPAY ==
--- NOTE | 2025-05-12 16:47 | CTR_ITS ---
PROCEDURE INFORMATION: Exam: CT Abdomen And Pelvis Without And With Contrast Exam date and time: 05/12/2025 5:03 PM Age: 74 years old Clinical indication: Other: Hematuria; Prior surgery; Surgery date: 6+ months; Surgery type: Hernia; Additional info: Hematuria, renal parenchymal cause suspected nephrolithiasis TECHNIQUE: Imaging protocol: Computed tomography of the abdomen and pelvis without and with contrast. 3D rendering (Not supervised by radiologist): MIP and/or 3D reconstructed images were created by the technologist. Radiation optimization: All CT scans at this facility use at least one of these dose optimization techniques: automated exposure control; mA and/or kV adjustment per patient size (includes targeted exams where dose is matched to clinical indication); or iterative reconstruction. Contrast material: OMNI 350; Contrast volume: 100 ml; Contrast route: INTRAVENOUS (IV); COMPARISON: CR XR hip BI 3-4V wo/w pel [id number] 12/04/2020 1:30 PM RADIATION DOSE METRICS: Total DLP (mGy-cm): 1414.14 FINDINGS: Lungs: In the visualized lungs, there is scattered granulomas as well as bronchiectasis. Minimal atelectasis noted within the left lower lobe. Liver: In the liver, there are multiple scattered cysts measuring up to 4.6 cm in size. No follow-up is recommended. There is hepatomegaly. There is mild intrahepatic biliary dilatation noted centrally. Gallbladder and biliary ducts: Common bile duct measures up to 10 mm. No obvious filling defects. The gallbladder is grossly normal. Pancreas: Normal. No ductal dilation. Spleen: There is splenomegaly. Adrenal glands: There is a 7 mm left adrenal nodule, averages 17 Hounsfield units precontrast. Similar sized nodule also present in the right adrenal gland. Kidneys and ureters: There are bilateral nonobstructing renal stones, measuring up to 11 mm on the left and 8 mm on the right. There is a 3.2 cm simple right renal cyst which does not require follow-up. There are also subcentimeter renal cysts, no follow-up. Stomach and bowel: Unremarkable. No obstruction. No mucosal thickening. Appendix: No evidence of appendicitis. Intraperitoneal space: Unremarkable. No free air. No significant fluid collection. Vasculature: The aorta is moderately calcified and nonaneurysmal. Lymph nodes: There are normal-sized inguinal lymph nodes. Urinary bladder: There are small right-sided bladder diverticula located at 7 and 8:00 a.m. minimal layering debris versus mild bladder wall thickening noted posteriorly, axial image 62 of series 5, measures 4 mm. Reproductive: Unremarkable as visualized. Bones/joints: Degenerative changes present within the spine. Soft tissues: Unremarkable. CT/CT abdomen pelvis wo/w [id number] IMPRESSION: 1. There are bilateral nonobstructing renal stones, measuring up to 11 mm on the left and 8 mm on the right. No acute abnormality. 2. Small right-sided bladder diverticular present. Minimal debris versus mild posterior bladder wall thickening is identified measuring 4 mm. Clinical follow-up is recommended. 3. There is mild hepatomegaly. There is mild intrahepatic biliary dilatation. Common bile duct measures 10 mm, no obvious filling defects. Correlate with labs. Consider MRCP imaging if clinically indicated. 4. Gallbladder is grossly normal. 5. Bilateral subcentimeter adrenal nodules, based on size and precontrast imaging, most consistent with benign/incidental adenomas. No follow-up recommended. 6. Splenomegaly. COMMENTS: 1. Consistent with the [employer]'s Incidental Findings Committee white paper (J [employer]ovita [employer]iol 2018): Any incidental renal lesion less than 1 cm or classified as too small to characterize, or any incidental cystic renal lesion characterized as simple-appearing, is likely benign. No follow-up imaging is recommended for these lesions per consensus recommendations based on imaging criteria. 2. Consistent with the [employer]'s Incidental Findings Committee white paper (J [employer]iol 2017): Any incidental adrenal lesion less than 1 cm is likely benign. No follow-up imaging is recommended for these lesions per consensus recommendations based on imaging criteria. Further lab evaluation could be pursued if warranted based on clinical findings. 3. Consistent with the [employer]'s Incidental Findings Committee white paper (J Am [employer]iol 2017): For any incidental adrenal lesion greater than or equal to 1 cm but less than or equal to 4 cm classified in this report as benign, likely benign, or containing fat (including classification as an adenoma or myelolipoma), no follow-up imaging is recommended per consensus recommendations based on imaging criteria. Further lab evaluation could be pursued if warranted based on clinical findings.
[2025-05-12] MEDS: iohexol 350 mg/mL 500 mL Btl (per mL) IV (17:25)
== END 2025-05-12 16:26 | disposition home or self-care (01) ==
LOC: RAD 16:28
PROVIDERS: PCP Family Medicine; Visit Provider Registered Nurse
DX: R10.A3 Flank pain, bilateral (principal); R31.0 Gross hematuria; J84.10 Pulmonary fibrosis, unspecified; J47.9 Bronchiectasis, uncomplicated; K76.0 Fatty (change of) liver, not elsewhere classified; N20.0 Calculus of kidney; I70.0 Atherosclerosis of aorta; N32.3 Diverticulum of bladder; R16.2 Hepatomegaly with splenomegaly, not elsewhere classified
CPT/HCPCS: 74178